=== PATIENT | female | born 1995 | race Caucasian/White ===

== ENCOUNTER → 2017-05-27 | Outpatient (CLI) | payer MEDICAID, OTHER | LOC: LABNPT 17:47 | PROVIDERS: ATTEND Nurse Practitioner Family | DX: N30.00 Acute cystitis without hematuria (principal); Z20.2 Contact with and (suspected) exposure to infections with a predominantly sexual mode of transmission; R30.0 Dysuria | CPT/HCPCS: 87088; 87186 ==

== ENCOUNTER 2017-07-31 20:32 | Emergency (ER) | payer MEDICAID ==
[~2017-07-31] VITALS: Ht 160 cm; Wt 65.8 kg
--- NOTE | 2017-07-31 21:55 | ED Abdominal Pain ---
General Chief Complaint: Abdominal/GI Problems Stated Complaint: RIGHT SIDE ABDOMEN PAIN Nursing Triage Note: RIGHT SIDED ABDOMINAL PAIN, NAUSEA, HEADACHE Sepsis Screen: No Definite Risk History of Present Illness Date Seen by Provider: July 31, 2017 Time Seen by Provider: 21:45 Initial Comments 2-year-old female presents for right-sided abdominal pain. She reports her last menstrual cycle being June 27, 2017. She did have unprotected intercourse approximately 4 days before this, she denies any other sexual activity. She has a 2 and 4-year-old child at home. He reports intermittent nausea worse after eating. She denies any vomiting or diarrhea. Timing/Duration: Intermittent Severity/Quality: Mild Location: RLQ Radiation: No Radiation Associated Symptoms: No Back Pain, No Diaphoresis, No Fever/Chills; Fatigue, Nausea/Vomiting; No Weakness Allergies and Home Medications Patient Home Medication List Home Medication List Reviewed: Yes Review of Systems Constitutional: no symptoms reported, see HPI Gastrointestinal: See HPI, Abdominal Pain, Nausea, Poor Appetite All Other Systems Reviewed Negative Unless Noted: Yes Past Zqgfpux-Kzdqgl-Ymuejr Hx Past Med/Social Hx: Reviewed Nursing Past Med/Soc Hx Patient Social History Alcohol Use: Denies Use Recreational Drug Use: No Smoking Status: Never a Smoker 2nd Hand Smoke Exposure: No Recent Foreign Travel: No Contact w/Someone Who Travel: No Recent Infectious Disease Expo: No Recent Hopitalizations: No Immunizations Up To Date Tetanus Booster (TDap): Unknown PED Vaccines UTD: No Seasonal Allergies Seasonal Allergies: No Past Medical History Surgeries: No Respiratory: No Cardiac: No Neurological: No : Yes Last Menstrual Period: Jun 27, 2017 Hx : 2 Hx Para: 2 Hx Total # of Abortions (Sp): 0 Reproductive Disorders: No Genitourinary: No Gastrointestinal: No Musculoskeletal: No Endocrine: No HEENT: No Cancer: No Psychosocial: No Integumentary: No Blood Disorders: No Family Medical History Reviewed Nursing Family Hx Physical Exam Vital Signs Vital Signs - First Documented 07/31/17 21:15 Temp 97.8 Pulse 73 Resp 18 B/P (MAP) 139/77 (97) Pulse Ox 97 O2 Delivery Room Air Capillary Refill : Less Than 3 Seconds General Appearance: WD/WN, no apparent distress HEENT: PERRL/EOMI, normal ENT inspection, TMs normal, pharynx normal Neck: non-tender, full range of motion, supple Respiratory: chest non-tender, lungs clear, normal breath sounds Cardiovascular: normal peripheral pulses, regular rate, rhythm Gastrointestinal: normal bowel sounds, soft; No distended, No guarding, No rebound; tenderness (right lower quadrant) Neurologic/Psychiatric: no motor/sensory deficits, alert, normal mood/affect, oriented x 3 Skin: normal color, warm/dry Progress/Results/Core Measures Results/Orders Lab Results Laboratory Tests Test 07/31/17 21:44 07/31/17 22:00 Range/Units Urine Color YELLOW Urine Clarity VERY CLOUDY H Urine pH 7 5-9 Urine Specific [place] 1.010 L 1.016-1.022 Urine Protein NEGATIVE NEGATIVE Urine Glucose (UA) NEGATIVE NEGATIVE Urine Ketones NEGATIVE NEGATIVE Urine Nitrite NEGATIVE NEGATIVE Urine Bilirubin NEGATIVE NEGATIVE Urine Urobilinogen 4 H NORMAL MG/DL Urine Leukocyte Esterase 1+ H NEGATIVE Urine RBC (Auto) NEGATIVE NEGATIVE Urine RBC NONE /HPF Urine WBC 2-5 /HPF Urine Squamous Epithelial Cells 10-25 H /HPF Urine Crystals PRESENT H /LPF Urine Amorphous Sediment LARGE MICHELLE PHOSPHATE H /LPF Urine Bacteria FEW H /HPF Urine Casts NONE /LPF Urine Mucus NEGATIVE /LPF Urine Culture Indicated NO White Blood Count 6.5 4.3-11.0 10^3/uL Red Blood Count 4.68 4.35-5.85 10^6/uL Hemoglobin 13.6 11.5-16.0 G/DL Hematocrit 40 35-52 % Mean Corpuscular Volume 85 80-99 FL Mean Corpuscular Hemoglobin 29 25-34 PG Mean Corpuscular Hemoglobin Concent 34 32-36 G/DL Red Cell Distribution Width 13.4 10.0-14.5 % Platelet Count 193 130-400 10^3/uL Mean Platelet Volume 11.0 H 7.4-10.4 FL Neutrophils (%) (Auto) 53 42-75 % Lymphocytes (%) (Auto) 35 12-44 % Monocytes (%) (Auto) 8 0-12 % Eosinophils (%) (Auto) 3 0-10 % Basophils (%) (Auto) 0 0-10 % Neutrophils # (Auto) 3.4 1.8-7.8 X 10^3 Lymphocytes # (Auto) 2.3 1.0-4.0 X 10^3 Monocytes # (Auto) 0.6 0.0-1.0 X 10^3 Eosinophils # (Auto) 0.2 0.0-0.3 10^3/uL Basophils # (Auto) 0.0 0.0-0.1 10^3/uL Sodium Level 140 135-145 MMOL/L Potassium Level 3.7 3.6-5.0 MMOL/L Chloride Level 111 H 98-107 MMOL/L Carbon Dioxide Level 21 21-32 MMOL/L Anion Gap 8 5-14 MMOL/L Blood Urea Nitrogen 8 7-18 MG/DL Creatinine 0.73 0.60-1.30 MG/DL Estimat Glomerular Filtration Rate > 60 BUN/Creatinine Ratio 11 Glucose Level 100 70-105 MG/DL Calcium Level 9.6 8.5-10.1 MG/DL Total Bilirubin 0.8 0.1-1.0 MG/DL Aspartate Amino Transf (AST/SGOT) 20 5-34 U/L Alanine Aminotransferase (ALT/SGPT) 19 0-55 U/L Alkaline Phosphatase 68 40-136 U/L Total Protein 7.3 6.4-8.2 GM/DL Albumin 4.6 H 3.2-4.5 GM/DL Human Chorionic Gonadotropin, Quant 972 H <5 MIU/ML My Orders Orders - MICHELLEANA Cbc With Automated Diff (07/31/17 21:51) Comprehensive Metabolic Panel (07/31/17 21:51) Hcg,Quantitative (07/31/17 21:51) Us Ob Transvaginal [id number] (07/31/17 21:52) Urine Bedside (07/31/17 21:56) Ua Culture If Indicated (07/31/17 21:56) Vital Signs/I&O 07/31/17 07/31/17 21:15 23:09 Temp 97.8 97.2 Pulse 73 70 Resp 18 18 B/P (MAP) 139/77 (97) 132/69 (97) Pulse Ox 97 98 O2 Delivery Room Air Room Air Blood Pressure Mean: 97 Urine -Bedside: Positive Progress Progress Note : Time: 21:45 Progress Note Initial evaluation completed, recommended urine hCG and UA. Urine HCG +, will obtain CBC, CMP, quantitative hCG and transvaginal ultrasound. Discussed results and plan with patient, she agreed with this treatment. 2300 results of ultrasound discussed with the patient. Recommended referral to LAMINATION INSPECTOR this week. And follow-up ultrasound. She will make an appointment. Discharge instructions and return precautions reviewed with her. All questions answered. Diagnostic Imaging Diagonstic Imaging: Ultrasound Plain Films/CT/US/NM/MRI: other (OB transvaginal) Comments Per [facility]: 3 mm anechoic collection within the endometrial canal, representing early gestational sac or pseudo-gestational sac. No identifiable pole or yolk sac at this time. No evidence of an adnexal mass time Reviewed: Reviewed by Me, Reviewed/Discussed (With ultrasound. ) Departure Impression Primary Impression: First trimester Additional Impression: Pain, abdominal, RLQ Disposition: HOME, SELF-CARE Condition: Stable Departure-Patient Inst. Decision time for Depature: 23:00 Referrals: NO,LOCAL PHYSICIAN (PCP) Primary Care Physician Patient Instructions: Acute Abdomen (Belly Pain), Adult (DC), Nausea and Vomiting of (DC), - The Second Month Add. Discharge Instructions: Begin taking a vitamin, one daily. Schedule follow-up with an LAMINATION INSPECTOR see medical listing. Clear liquid or bland diet, eat small, frequent amounts of food. Increase water intake. Return to emergency department for increased abdominal pain, vaginal bleeding or spotting, new problems or concerns. All discharge instructions reviewed with patient and/or family. Voiced understanding. 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
[2017-07-31 22:02] LABS: BILIRUBIN,URINE NEGATIVE (NEGATIVE); CLARITY,URINE VERY CLOUDY; COLOR,URINE YELLOW; GLUCOSE, URINE (UA) NEGATIVE (NEGATIVE); KETONES,URINE NEGATIVE (NEGATIVE); LEUKOCYTE ESTERASE ,URINE 1+ (NEGATIVE); NITRITE,URINE NEGATIVE (NEGATIVE); PH,URINE 7 (5-9); PROTEIN,URINE NEGATIVE (NEGATIVE); UROBILINOGEN,URINE 4 MG/DL (NORMAL)
[2017-07-31 22:07] LABS: BASOPHILS % (AUTO) 0 % (0-10); EOSINOPHILS # (AUTO) 0.2 10^3/uL (0.0-0.3); EOSINOPHILS % (AUTO) 3 % (0-10); HEMATOCRIT 40 % (35-52); HEMOGLOBIN 13.6 G/DL (11.5-16.0); LYMPHOCYTES # (AUTO) 2.3 X 10^3 (1.0-4.0); LYMPHOCYTES % (AUTO) 35 % (12-44); MEAN CORPUSCULAR HEMOGLOBIN 29 PG (25-34); MEAN CORPUSCULAR HGB CONC 34 G/DL (32-36); MEAN CORPUSCULAR VOLUME 85 FL (80-99); MONOCYTES # (AUTO) 0.6 X 10^3 (0.0-1.0); MONOCYTES % (AUTO) 8 % (0-12); NEUTROPHILS # (AUTO) 3.4 X 10^3 (1.8-7.8); NEUTROPHILS % (AUTO) 53 % (42-75); PLATELET COUNT 193 10^3/uL (130-400); RED BLOOD COUNT 4.68 10^6/uL (4.35-5.85); RED CELL DISTRIBUTION WIDTH 13.4 % (10.0-14.5); WHITE BLOOD COUNT 6.5 10^3/uL (4.3-11.0)
[2017-07-31 22:21] LABS: BACTERIA,URINE FEW /HPF
[2017-07-31 22:22] LABS: AMORPHOUS SEDIMENT,UR LARGE AMOR PHOSPHATE /LPF
[2017-07-31 22:38] LABS: ALANINE AMINOTRANSFERASE 19 U/L (0-55); ALBUMIN 4.6 GM/DL (3.2-4.5); ALKALINE PHOSPHATASE 68 U/L (40-136); BILIRUBIN,TOTAL 0.8 MG/DL (0.1-1.0); BUN/CREATININE RATIO 11; CALCIUM 9.6 MG/DL (8.5-10.1); CARBON DIOXIDE 21 MMOL/L (21-32); CHLORIDE 111 MMOL/L (98-107); CREATININE SERUM 0.73 MG/DL (0.60-1.30); GFR ESTIMATED > 60; GLUCOSE 100 MG/DL (70-105); POTASSIUM 3.7 MMOL/L (3.6-5.0); SODIUM 140 MMOL/L (135-145); TOTAL PROTEIN 7.3 GM/DL (6.4-8.2)
[2017-07-31 23:09] VITALS: BP 132/69
--- NOTE | 2017-08-01 08:59 | Diagnostic Imaging Report ---
EXAMINATION: OB ultrasound. INDICATION: Cramping There are no prior studies available for comparison. By history the patient has a positive test. There is a small hypoechoic area within the uterus. This would correspond to a 4 week 5 day if this is a gestational sac. The possibility that this is related to a blighted ovum or even an ectopic pseudo sac should also be considered. Correlation with the patient's beta hCG levels would be recommended. Both ovaries were identified. There is good blood flow to each ovary. There is a 1.4 x 1.9 x 1.7 CM cyst associated with the left ovary. There is no solid pelvic mass or free fluid collection noted. Impression: 1. There is a small saclike structure within the uterus. Whether this is secondary to an early live , a blighted ovum or least likely to a gestational pseudo sac is not certain. Correlation with the patient's beta hCG levels would be recommended. It may prove worthwhile to have a short-term (one week) followup ultrasound exam as well. 2. There is a small cyst associated with the left ovary. 3. There is no acute pelvic abnormality noted otherwise. Dictated by: Dictated on workstation # [id number]
== END 2017-07-31 23:08 | disposition home or self-care (01) ==
LOC: EDUNIT# 20:32 → ER 20:33
DX: O99.89 Other specified diseases and conditions complicating pregnancy, childbirth and the puerperium (principal); R10.31 Right lower quadrant pain; Z3A.00 Weeks of gestation of pregnancy not specified
CPT/HCPCS: 36415; 76817; 80053; 81000; 84702; 84703; 85025

== ENCOUNTER 2017-08-15 20:58 | Emergency (ER) | payer MEDICAID ==
[~2017-08-15] VITALS: Ht 160 cm; Wt 61.2 kg
--- NOTE | 2017-08-15 21:21 | ED GU-Female ---
General Chief Complaint: Abdominal/GI Problems Stated Complaint: ABD PAIN AFTER MISCARRIAGE Nursing Triage Note: c/o abdomen pain. patient reports was recently , went to have an ultrasound and was told the heart was not beating, was given 4 pills to take if the fetus didn't pass on it's own. patient reports taking the 4 pills on 08/12/17. patient reports abdomen cramping similar to labor starting today Nursing Sepsis Screen: No Definite Risk Source: patient Exam Limitations: no limitations History of Present Illness Date Seen by Provider: August 15, 2017 Time Seen by Provider: 21:21 Initial Comments 21-year-old female patient presents to the emergency department with complaints of lower abdominal pain, cramping, and vaginal bleeding. Patient was seen in the emergency department at [facility] on 07/31/17 and diagnosed with first trimester and right lower quadrant abdominal pain. Patient states soon after that she had gone to [place] to visit her father. Was seen at 2 different emergency departments. States she had an ultrasound at each facility measuring approximately 5 weeks. States she should have measured 6 weeks at the second facility. Was offered pills to complete the miscarriage if needed. Patient states "I decided just to get it over with and took the pills on Tuesday." Patient reports light vaginal bleeding and cramping on Tuesday. Symptoms are worse today. Severity/Quality: cramping Location: suprapubic Radiation: back Sexual [place] History: less than 2 months ago Allergies and Home Medications Allergies Coded Allergies: No Known Drug Allergies (Unverified , 08/15/17) Home Medications Cephalexin 500 Mg Capsule, 500 MG PO TID Prescribed by: DEVI PANG on 08/15/17 [id number] Patient Home Medication List Home Medication List Reviewed: Yes Review of Systems Constitutional: No chills, No fever, No malaise Respiratory: no symptoms reported Cardiovascular: no symptoms reported Gastrointestinal: see HPI, abdominal pain (suprapubic abdominal cramping); No constipation, No diarrhea, No nausea, No vomiting Genitourinary: see HPI; denies discharge, denies dysuria, denies frequency, denies flank pain; pain, other (vaginal bleeding) : Yes LMP: Jun 27, 2017 Musculoskeletal: see HPI, back pain Skin: no symptoms reported Psychiatric/Neurological: No Symptoms Reported All Other Systemes Reviewed Negative Unless Noted: Yes (Negative excepted noted.) Past Punszrt-Vryaeo-Ttsvpd Hx Patient Social History Alcohol Use: Denies Use Recreational Drug Use: No Smoking Status: Never a Smoker 2nd Hand Smoke Exposure: No Recent Foreign Travel: No Contact w/Someone Who Travel: No Recent Infectious Disease Expo: No Recent Hopitalizations: No Immunizations Up To Date Tetanus Booster (TDap): Unknown PED Vaccines UTD: No Seasonal Allergies Seasonal Allergies: No Past Medical History Surgeries: No Respiratory: No Cardiac: No Neurological: No : Yes Last Menstrual Period: Jun 27, 2017 Hx : 3 Hx Para: 2 Hx Total # of Abortions (Sp): 1 Reproductive Disorders: No Female Reproductive Disorders: Denies Genitourinary: No Gastrointestinal: No Musculoskeletal: No Endocrine: No HEENT: No Cancer: No Psychosocial: No Integumentary: No Blood Disorders: No Family Medical History Reviewed Nursing Family Hx No Pertinent Family Hx Physical Exam Vital Signs Vital Signs - First Documented 08/15/17 21:08 Temp 98.2 Pulse 77 Resp 18 B/P (MAP) 140/81 (100) Pulse Ox 100 Capillary Refill : Less Than 3 Seconds General Appearance: WD/WN, no apparent distress HEENT: PERRL/EOMI, pharynx normal Neck: supple, normal inspection Cardiovascular: normal peripheral pulses, regular rate, rhythm, no edema, no murmur Respiratory: lungs clear, normal breath sounds, no respiratory distress, no accessory muscle use Gastrointestinal: normal bowel sounds, soft, no organomegaly; No distended, No guarding, No rebound; tenderness (suprapubic abdominal tenderness); No mass Back: normal inspection, no CVA tenderness Extremities: no pedal edema, normal capillary refill Neurologic/Psychiatric: alert, normal mood/affect, oriented x 3 Skin: normal color, warm/dry Progress/Results/Core Measures Suspected Sepsis Recent Fever Within 48 Hours: No Infection Criteria Present: None New/Unexplained Altered Menta: No Sepsis Screen: No Definite Risk SIRS Temperature:98.2 Pulse: 77 Respiratory Rate: 18 Laboratory Tests 08/15/17 21:23: White Blood Count 6.2 Blood Pressure 140 /81 Mean: 100 Laboratory Tests 08/15/17 21:23: Creatinine 0.70, Platelet Count 172, Total Bilirubin 0.6 Results/Orders Lab Results Laboratory Tests Test 08/15/17 21:23 Range/Units White Blood Count 6.2 4.3-11.0 10^3/uL Red Blood Count 4.46 4.35-5.85 10^6/uL Hemoglobin 13.2 11.5-16.0 G/DL Hematocrit 39 35-52 % Mean Corpuscular Volume 87 80-99 FL Mean Corpuscular Hemoglobin 30 25-34 PG Mean Corpuscular Hemoglobin Concent 34 32-36 G/DL Red Cell Distribution Width 13.1 10.0-14.5 % Platelet Count 172 130-400 10^3/uL Mean Platelet Volume 11.5 H 7.4-10.4 FL Neutrophils (%) (Auto) 55 42-75 % Lymphocytes (%) (Auto) 34 12-44 % Monocytes (%) (Auto) 9 0-12 % Eosinophils (%) (Auto) 3 0-10 % Basophils (%) (Auto) 0 0-10 % Neutrophils # (Auto) 3.4 1.8-7.8 X 10^3 Lymphocytes # (Auto) 2.1 1.0-4.0 X 10^3 Monocytes # (Auto) 0.5 0.0-1.0 X 10^3 Eosinophils # (Auto) 0.2 0.0-0.3 10^3/uL Basophils # (Auto) 0.0 0.0-0.1 10^3/uL Urine Color RED H Urine Clarity SLIGHTLY CLOUDY Urine pH 6 5-9 Urine Specific [place] 1.025 H 1.016-1.022 Urine Protein 3+ H NEGATIVE Urine Glucose (UA) NEGATIVE NEGATIVE Urine Ketones 1+ H NEGATIVE Urine Nitrite NEGATIVE NEGATIVE Urine Bilirubin NEGATIVE NEGATIVE Urine Urobilinogen 1 NORMAL MG/DL Urine Leukocyte Esterase 2+ H NEGATIVE Urine RBC (Auto) 5+ H NEGATIVE Urine RBC TNTC H /HPF Urine WBC 5-10 H /HPF Urine Squamous Epithelial Cells 10-25 H /HPF Urine Crystals NONE /LPF Urine Bacteria FEW H /HPF Urine Casts NONE /LPF Urine Mucus NEGATIVE /LPF Urine Culture Indicated YES Sodium Level 141 135-145 MMOL/L Potassium Level 3.8 3.6-5.0 MMOL/L Chloride Level 110 H 98-107 MMOL/L Carbon Dioxide Level 21 21-32 MMOL/L Anion Gap 10 5-14 MMOL/L Blood Urea Nitrogen 6 L 7-18 MG/DL Creatinine 0.70 0.60-1.30 MG/DL Estimat Glomerular Filtration Rate > 60 BUN/Creatinine Ratio 9 Glucose Level 109 H 70-105 MG/DL Calcium Level 9.5 8.5-10.1 MG/DL Total Bilirubin 0.6 0.1-1.0 MG/DL Aspartate Amino Transf (AST/SGOT) 15 5-34 U/L Alanine Aminotransferase (ALT/SGPT) 11 0-55 U/L Alkaline Phosphatase 63 40-136 U/L Total Protein 6.8 6.4-8.2 GM/DL Albumin 4.4 3.2-4.5 GM/DL Human Chorionic Gonadotropin, Quant 1275 H <5 MIU/ML My Orders Orders - DEVI PANG Cbc With Automated Diff (08/15/17 21:14) Comprehensive Metabolic Panel (08/15/17 21:14) Hcg,Quantitative (08/15/17 21:14) Ua Culture If Indicated (08/15/17 21:14) Saline Lock/Iv-Start (08/15/17 21:14) Us Ob Transvaginal [id number] (08/15/17 21:14) Urine Culture (08/15/17 21:23) Rx-Cephalexin Capsule (Rx-Keflex Capsule (08/15/17 23:15) Vital Signs/I&O 08/15/17 08/15/17 21:08 23:28 Temp 98.2 98.2 Pulse 77 77 Resp 18 18 B/P (MAP) 140/81 (100) 140/81 (100) Pulse Ox 100 100 Capillary Refill : Less Than 3 Seconds Blood Pressure Mean: 100 Diagnostic Imaging Diagonstic Imaging: Ultrasound Plain Films/CT/US/NM/MRI: pelvis Comments No evidence at previously seen gestational sac. Findings per [facility] report. Reviewed: Reviewed Night [facility] Study Departure Impression Primary Impression: in first trimester Additional Impressions: Urinary tract infection Dehydration Disposition: 01 HOME, SELF-CARE Condition: Improved Departure-Patient Inst. Decision time for Depature: 23:08 Referrals: NO,LOCAL PHYSICIAN (PCP) Primary Care Physician NOEMI ONEIL DENNIS G MD QUICK, KAY W ARNP SHAW, ANGELA C DO Patient Instructions: Dealing With Miscarriage, Miscarriage (DC), Dehydration, Adult (DC), Urinary Tract Infection, Adult (DC) Add. Discharge Instructions: All discharge instructions reviewed with patient and/or family. Voiced understanding. Tylenol extra strength [id number] as directed for pain. Drink plenty of fluids. Follow-up with your test and turn up technician/coal passer of choice within the next 3-5 days for recheck and repeat labs as an outpatient. They will most likely schedule an outpatient ultrasound. Call tomorrow morning for appointment time. Return to the emergency department for worsened symptoms , vaginal bleeding with greater than 2 pads per hour for greater than 2 hours, vaginal discharge, fever, vomiting, abdominal swelling, or any other concerns. Scripts Cephalexin (Cephalexin) 500 Mg Capsule 500 MG PO TID, #21 CAP 0 Refills Prov: DEVI PANG 08/15/17 Work/School Note: Work Release Form Date Seen in the Emergency Department: August 15, 2017 Return to Work: August 17, 2017 DEVI PANG August 15, 2017 21:21
[2017-08-15 21:35] LABS: BASOPHILS % (AUTO) 0 % (0-10); BILIRUBIN,URINE NEGATIVE (NEGATIVE); CLARITY,URINE SLIGHTLY CLOUDY; COLOR,URINE RED; EOSINOPHILS # (AUTO) 0.2 10^3/uL (0.0-0.3); EOSINOPHILS % (AUTO) 3 % (0-10); GLUCOSE, URINE (UA) NEGATIVE (NEGATIVE); HEMATOCRIT 39 % (35-52); HEMOGLOBIN 13.2 G/DL (11.5-16.0); KETONES,URINE 1+ (NEGATIVE); LEUKOCYTE ESTERASE ,URINE 2+ (NEGATIVE); LYMPHOCYTES # (AUTO) 2.1 X 10^3 (1.0-4.0); LYMPHOCYTES % (AUTO) 34 % (12-44); MEAN CORPUSCULAR HEMOGLOBIN 30 PG (25-34); MEAN CORPUSCULAR HGB CONC 34 G/DL (32-36); MEAN CORPUSCULAR VOLUME 87 FL (80-99); MEAN PLATELET VOLUME 11.5 FL (7.4-10.4); MONOCYTES # (AUTO) 0.5 X 10^3 (0.0-1.0); MONOCYTES % (AUTO) 9 % (0-12); NEUTROPHILS # (AUTO) 3.4 X 10^3 (1.8-7.8); NEUTROPHILS % (AUTO) 55 % (42-75); NITRITE,URINE NEGATIVE (NEGATIVE); PH,URINE 6 (5-9); PLATELET COUNT 172 10^3/uL (130-400); PROTEIN,URINE 3+ (NEGATIVE); RED BLOOD COUNT 4.46 10^6/uL (4.35-5.85); RED CELL DISTRIBUTION WIDTH 13.1 % (10.0-14.5); UROBILINOGEN,URINE 1 MG/DL (NORMAL); WHITE BLOOD COUNT 6.2 10^3/uL (4.3-11.0)
[2017-08-15 21:46] LABS: BACTERIA,URINE FEW /HPF; RBC,URINE TNTC /HPF
[2017-08-15 21:54] LABS: ALANINE AMINOTRANSFERASE 11 U/L (0-55); ALBUMIN 4.4 GM/DL (3.2-4.5); ALKALINE PHOSPHATASE 63 U/L (40-136); BILIRUBIN,TOTAL 0.6 MG/DL (0.1-1.0); BUN/CREATININE RATIO 9; CALCIUM 9.5 MG/DL (8.5-10.1); CARBON DIOXIDE 21 MMOL/L (21-32); CHLORIDE 110 MMOL/L (98-107); GFR ESTIMATED > 60; GLUCOSE 109 MG/DL (70-105); POTASSIUM 3.8 MMOL/L (3.6-5.0); SODIUM 141 MMOL/L (135-145); TOTAL PROTEIN 6.8 GM/DL (6.4-8.2)
[2017-08-15] MEDS ORDERED: CEPH500C PO (23:11)
[2017-08-15] MEDS ORDERED: RX-CEPHALEXIN (KEFLEX) 250 MG CAP PPK#4 PO STA (23:15)
[2017-08-15 23:28] VITALS: BP 140/81
--- NOTE | 2017-08-16 08:15 | Diagnostic Imaging Report ---
Indication: Recent . Technique: Multiple realtime grayscale images were obtained over the pelvis both transvaginal and endovaginally in various projections. Findings: Comparison made with prior examination from 07/31/2017. Uterus measures 9.3 x 4.8 x 6.4 cm. Endometrial thickness is 6 mm. There is no evidence of a previously seen gestational sac. There are no myometrial or endometrial masses. The right ovary was not identified. Left ovary is normal in size, morphology and demonstrate normal blood flow. There is no free fluid. There are no adnexal masses. Impression: No evidence of the previously seen gestational sac. Recommend correlation with beta hCG and followup ultrasound as clinically warranted. Dictated by: Dictated on workstation # [id number]
== END 2017-08-15 23:28 | disposition home or self-care (01) ==
LOC: EDUNIT# 20:58 → ER 20:59
DX: O03.88 Urinary tract infection following complete or unspecified spontaneous abortion (principal); O99.281 Endocrine, nutritional and metabolic diseases complicating pregnancy, first trimester; E86.0 Dehydration
CPT/HCPCS: 36415; 76817; 80053; 81000; 84702; 85025; 87077; 87088

== ENCOUNTER 2017-11-24 14:26 | Emergency (ER) | payer MEDICAID ==
[~2017-11-24] VITALS: Ht 160 cm; Wt 63.5 kg
[~2017-11-24 14:26] MED LIST: CEPH500C PO
[2017-11-24 14:50] LABS: BILIRUBIN,URINE NEGATIVE (NEGATIVE); CLARITY,URINE CLEAR; COLOR,URINE YELLOW; GLUCOSE, URINE (UA) NEGATIVE (NEGATIVE); KETONES,URINE NEGATIVE (NEGATIVE); LEUKOCYTE ESTERASE ,URINE 1+ (NEGATIVE); NITRITE,URINE NEGATIVE (NEGATIVE); PH,URINE 5 (5-9); PROTEIN,URINE NEGATIVE (NEGATIVE); UROBILINOGEN,URINE NORMAL (NORMAL)
[2017-11-24 14:54] LABS: BASOPHILS % (AUTO) 0 % (0-10); EOSINOPHILS # (AUTO) 0.1 10^3/uL (0.0-0.3); EOSINOPHILS % (AUTO) 2 % (0-10); HEMATOCRIT 41 % (35-52); HEMOGLOBIN 14.2 G/DL (11.5-16.0); LYMPHOCYTES # (AUTO) 1.5 X 10^3 (1.0-4.0); LYMPHOCYTES % (AUTO) 29 % (12-44); MEAN CORPUSCULAR HEMOGLOBIN 30 PG (25-34); MEAN CORPUSCULAR HGB CONC 35 G/DL (32-36); MEAN CORPUSCULAR VOLUME 85 FL (80-99); MEAN PLATELET VOLUME 11.4 FL (7.4-10.4); MONOCYTES # (AUTO) 0.4 X 10^3 (0.0-1.0); MONOCYTES % (AUTO) 8 % (0-12); NEUTROPHILS # (AUTO) 3.1 X 10^3 (1.8-7.8); NEUTROPHILS % (AUTO) 60 % (42-75); PLATELET COUNT 154 10^3/uL (130-400); RED CELL DISTRIBUTION WIDTH 12.5 % (10.0-14.5); WHITE BLOOD COUNT 5.2 10^3/uL (4.3-11.0)
[2017-11-24 14:59] LABS: BACTERIA,URINE MODERATE /HPF
--- NOTE | 2017-11-24 15:09 | ED Abdominal Pain ---
General Chief Complaint: Abdominal/GI Problems Stated Complaint: ABD PAIN/MISCARRIED 3 WKS AGO Nursing Triage Note: AMBULATORY TO ER WITH C/O LOWER ABD PAIN AND LOWER BACK PAIN X1 WEEK. STATES MISCARRIAGE APPROX 3-4 WEEKS AGO, NO D&C. Sepsis Screen: No Definite Risk Source of Information: Patient Exam Limitations: No Limitations History of Present Illness Date Seen by Provider: Nov 24, 2017 Time Seen by Provider: 14:30 Initial Comments Patient is a 22-year-old female who presents to the emergency room with complaints of lower abdominal pain and lower back pain for one week. She reports that she had a miscarriage 3-4 weeks ago. She was approximately 6 weeks along. She reports that she did not have a D&C. She has not had a menstrual cycle since the miscarriage. Timing/Duration: 1 Week Severity/Quality: Mild, Aching, Dull Location: Suprapubic Radiation: Back Associated Symptoms: Back Pain; No Fever/Chills, No Fatigue, No Headache, No Nausea/Vomiting Allergies and Home Medications Allergies Coded Allergies: No Known Drug Allergies (Unverified , 08/15/17) Home Medications Cephalexin 500 Mg Capsule, 500 MG PO TID Prescribed by: DEVI PANG on 08/15/17 2311 Cephalexin 500 Mg Capsule, 500 MG PO BID Prescribed by: JAMMIE LOPEZ on 11/24/17 1550 Ondansetron 4 Mg Tab.rapdis, 4 MG SL Q4H PRN for NAUSEA/VOMITING-1ST LINE Prescribed by: JAMMIE LOPEZ on 11/24/17 1550 Patient Home Medication List Home Medication List Reviewed: Yes Review of Systems Review of Systems Constitutional: see HPI; No chills, No fever Gastrointestinal: See HPI, Abdominal Pain Musculoskeletal: see HPI, back pain All Other Systems Reviewed Negative Unless Noted: Yes Past Ahoxftg-Hwcbyh-Qtxtmo Hx Past Med/Social Hx: Reviewed Nursing Past Med/Soc Hx Patient Social History Alcohol Use: Denies Use Recreational Drug Use: No Smoking Status: Never a Smoker 2nd Hand Smoke Exposure: No Recent Foreign Travel: No Contact w/Someone Who Travel: No Recent Infectious Disease Expo: No Recent Hopitalizations: No Immunizations Up To Date Tetanus Booster (TDap): Unknown PED Vaccines UTD: No Seasonal Allergies Seasonal Allergies: No Past Medical History Surgeries: No Respiratory: No Cardiac: No Neurological: No Reproductive Disorders: No Female Reproductive Disorders: Denies Genitourinary: No Gastrointestinal: No Musculoskeletal: No Endocrine: No HEENT: No Cancer: No Psychosocial: No Integumentary: No Blood Disorders: No Family Medical History Reviewed Nursing Family Hx No Pertinent Family Hx Physical Exam Vital Signs Vital Signs - First Documented 11/24/17 14:37 Temp 98.6 Pulse 88 Resp 17 B/P (MAP) 131/76 (94) Pulse Ox 100 O2 Delivery Room Air Capillary Refill : Less Than 3 Seconds Height/Weight/BMI Height: 5'3.00" Weight: 140lbs. oz. 63.807334ab; BMI Method:Stated General Appearance: WD/WN, no apparent distress HEENT: PERRL/EOMI, normal ENT inspection, TMs normal, pharynx normal Respiratory: chest non-tender, lungs clear, normal breath sounds, no respiratory distress, no accessory muscle use Cardiovascular: normal peripheral pulses, regular rate, rhythm, no edema, no gallop, no JVD, no murmur Gastrointestinal: normal bowel sounds, non tender, soft, no organomegaly, no pulsatile mass Back: normal inspection, no CVA tenderness, no vertebral tenderness Neurologic/Psychiatric: alert, normal mood/affect, oriented x 3 Skin: normal color, warm/dry Progress/Results/Core Measures Results/Orders Lab Results Laboratory Tests Test 11/24/17 14:27 11/24/17 14:34 11/24/17 14:45 Range/Units Lab Scanned Report Referred Lab Report [id number] Urine Color YELLOW Urine Clarity CLEAR Urine pH 5 5-9 Urine Specific [place] 1.020 1.016-1.022 Urine Protein NEGATIVE NEGATIVE Urine Glucose (UA) NEGATIVE NEGATIVE Urine Ketones NEGATIVE NEGATIVE Urine Nitrite NEGATIVE NEGATIVE Urine Bilirubin NEGATIVE NEGATIVE Urine Urobilinogen NORMAL NORMAL MG/DL Urine Leukocyte Esterase 1+ H NEGATIVE Urine RBC (Auto) NEGATIVE NEGATIVE Urine RBC NONE /HPF Urine WBC 5-10 H /HPF Urine Squamous Epithelial Cells 10-25 H /HPF Urine Crystals NONE /LPF Urine Bacteria MODERATE H /HPF Urine Casts NONE /LPF Urine Mucus SMALL H /LPF Urine Culture Indicated YES White Blood Count 5.2 4.3-11.0 10^3/uL Red Blood Count 4.80 4.35-5.85 10^6/uL Hemoglobin 14.2 11.5-16.0 G/DL Hematocrit 41 35-52 % Mean Corpuscular Volume 85 80-99 FL Mean Corpuscular Hemoglobin 30 25-34 PG Mean Corpuscular Hemoglobin Concent 35 32-36 G/DL Red Cell Distribution Width 12.5 10.0-14.5 % Platelet Count 154 130-400 10^3/uL Mean Platelet Volume 11.4 H 7.4-10.4 FL Neutrophils (%) (Auto) 60 42-75 % Lymphocytes (%) (Auto) 29 12-44 % Monocytes (%) (Auto) 8 0-12 % Eosinophils (%) (Auto) 2 0-10 % Basophils (%) (Auto) 0 0-10 % Neutrophils # (Auto) 3.1 1.8-7.8 X 10^3 Lymphocytes # (Auto) 1.5 1.0-4.0 X 10^3 Monocytes # (Auto) 0.4 0.0-1.0 X 10^3 Eosinophils # (Auto) 0.1 0.0-0.3 10^3/uL Basophils # (Auto) 0.0 0.0-0.1 10^3/uL Sodium Level 139 135-145 MMOL/L Potassium Level 3.6 3.6-5.0 MMOL/L Chloride Level 106 98-107 MMOL/L Carbon Dioxide Level 22 21-32 MMOL/L Anion Gap 11 5-14 MMOL/L Blood Urea Nitrogen 8 7-18 MG/DL Creatinine 0.76 0.60-1.30 MG/DL Estimat Glomerular Filtration Rate > 60 BUN/Creatinine Ratio 11 Glucose Level 82 70-105 MG/DL Calcium Level 9.5 8.5-10.1 MG/DL Corrected Calcium 9.1 8.5-10.1 MG/DL Total Bilirubin 0.9 0.1-1.0 MG/DL Aspartate Amino Transf (AST/SGOT) 15 5-34 U/L Alanine Aminotransferase (ALT/SGPT) 9 0-55 U/L Alkaline Phosphatase 61 40-136 U/L Total Protein 7.0 6.4-8.2 GM/DL Albumin 4.5 3.2-4.5 GM/DL Amylase Level 45 25-125 U/L Lipase 36 8-78 U/L Human Chorionic Gonadotropin, Quant < 5 <5 MIU/ML Micro Results Microbiology 11/24/17 Urine Culture - Final, Complete Strep agalactiae Group B See Comments My Orders Orders - JAMMIE LOPEZ Comprehensive Metabolic Panel (11/24/17 14:42) Lipase (11/24/17 14:42) Amylase (11/24/17 14:42) Ua Culture If Indicated (11/24/17 14:42) Saline Lock/Iv-Start (11/24/17 14:42) Cbc With Automated Diff (11/24/17 14:42) Hcg,Quantitative (11/24/17 14:42) Urine Culture (11/24/17 14:34) Vital Signs/I&O 11/24/17 11/24/17 14:37 15:56 Temp 98.6 98.6 Pulse 88 88 Resp 17 17 B/P (MAP) 131/76 (94) 131/76 (94) Pulse Ox 100 100 O2 Delivery Room Air Room Air Blood Pressure Mean: 94 Urine -Bedside: Negative Progress Progress Note : Time: 15:20 Progress Note Seen and evaluated the patient. I informed her of her urinary tract infection. I will be prescribing her antibiotics. She agrees with plans of care, plans for discharge, return precautions were given. Departure Impression Primary Impression: Urinary tract infection Disposition: 01 HOME, SELF-CARE Condition: Stable/Unchanged Departure-Patient Inst. Decision time for Depature: 15:36 Referrals: NO,LOCAL PHYSICIAN (PCP/Family) Primary Care Physician Patient Instructions: Urinary Tract Infection, Adult (DC) Add. Discharge Instructions: Take medications as directed. Ensure that you are drinking plenty of clear liquids like water. Follow-up with your primary care provider within 1 week for recheck. Keep your appointment with Mya Anderson for your women's health visit on December 12 2017. Return back to the emergency room for any worsening symptoms or concerns as needed. All discharge instructions reviewed with patient and/or family. Voiced understanding. Scripts Ondansetron (Zofran Odt) 4 Mg Tab.rapdis 4 MG SL Q4H PRN for NAUSEA/VOMITING-1ST LINE, #14 TAB Prov: JAMMIE LOPEZ 11/24/17 Cephalexin (Keflex) 500 Mg Capsule 500 MG PO BID for 10 Days, #20 CAP Prov: JAMMIE LOPEZ 11/24/17 JAMMIE LOPEZ Nov 24, 2017 15:09
[2017-11-24 15:12] LABS: ALANINE AMINOTRANSFERASE 9 U/L (0-55); ALBUMIN 4.5 GM/DL (3.2-4.5); ALKALINE PHOSPHATASE 61 U/L (40-136); AMYLASE 45 U/L (25-125); BILIRUBIN,TOTAL 0.9 MG/DL (0.1-1.0); BUN/CREATININE RATIO 11; CALCIUM 9.5 MG/DL (8.5-10.1); CARBON DIOXIDE 22 MMOL/L (21-32); CHLORIDE 106 MMOL/L (98-107); CREATININE SERUM 0.76 MG/DL (0.60-1.30); GFR ESTIMATED > 60; GLUCOSE 82 MG/DL (70-105); LIPASE 36 U/L (8-78); POTASSIUM 3.6 MMOL/L (3.6-5.0); SODIUM 139 MMOL/L (135-145)
[2017-11-24] MEDS ORDERED: ONDA4TAB8 SL (15:50)
[2017-11-24] MEDS ORDERED: CEPH-507 PO (15:50)
[2017-11-24 15:56] VITALS: BP 131/76
--- OUTSIDE RECORDS SUMMARY | 2017-11-24 17:51 | XMS REPORT ---
Author Author GAMALIEL TINOCO Organization [facility] IN [facility] Address [address] [place] [address] Care Team Providers Care Urban Designer Name Role Phone GAMALIEL TINOCO Unavailable PROBLEMS Unknown Problems ALLERGIES No Known Allergies ENCOUNTERS Encounter Location Date Diagnosis [facility] [address] [facility] [id number], [place] [address] May, Visit for TB skin test Z11.1 [facility] [address] [facility] [id number] [address] Feb, Sore throat J02.9 IMMUNIZATIONS No Known Immunizations SOCIAL HISTORY Never Assessed REASON FOR VISIT Sore throat started last night JStrasserRN PLAN OF CARE Activity Details Follow Up prn Reason: VITAL SIGNS Weight 145 lbs 2017-03-22 Temperature 97.9 degrees Fahrenheit 2017-03-22 Heart Rate 74 bpm 2017-03-22 Respiratory Rate 22 2017-03-22 Blood pressure systolic 104 mmHg 2017-03-22 Blood pressure diastolic 70 mmHg 2017-03-22 MEDICATIONS Unknown Medications RESULTS Name Result Date Reference Range STREP A (IN HOUSE) 2017-03-22 STREP A negative Control + Lot # [id number] Exp date 02-24-18 PROCEDURES Procedure Date Ordered Result Body Site STREP A ASSAY W/OPTIC Mar 22, 2017 INSTRUCTIONS MEDICATIONS ADMINISTERED No Known Medications
--- OUTSIDE RECORDS SUMMARY | 2017-11-24 17:51 | XMS REPORT ---
Author Author SRIDHAR CHILDERS [facility] Address [address] [place] [address] Care Team Providers Care Supervisor Mail Carriers Name Role Phone SRIDHAR CHILDERS Unavailable PROBLEMS Unknown Problems ALLERGIES No Information ENCOUNTERS Encounter Location Date Diagnosis [facility] [id number] [address] Sep, [facility] [id number], [place] [address] Sep, [facility] [id number], [place] [address] May, Visit for TB skin test Z11.1 [facility] [id number], [place] [address] Feb, Sore throat J02.9 IMMUNIZATIONS No Known Immunizations SOCIAL HISTORY Never Assessed REASON FOR VISIT TB skin test PLAN OF CARE Activity Details Follow Up 48-72 hours Reason: VITAL SIGNS MEDICATIONS Unknown Medications RESULTS No Results PROCEDURES Procedure Date Ordered Result Body Site TB INTRADERMAL 2017-06-03 Negative TB INTRADERMAL TEST June 03, 2017 INSTRUCTIONS MEDICATIONS ADMINISTERED No Known Medications
== END 2017-11-24 15:57 | disposition home or self-care (01) ==
LOC: EDUNIT# 14:26 → ER 14:27
DX: N39.0 Urinary tract infection, site not specified (principal); R10.30 Lower abdominal pain, unspecified; Z87.59 Personal history of other complications of pregnancy, childbirth and the puerperium
CPT/HCPCS: 36415; 80053; 81000; 82150; 83690; 84702; 84703; 85025; 87077; 87088

== ENCOUNTER 2018-03-09 18:24 | Emergency (ER) | payer MEDICAID ==
[~2018-03-09] VITALS: Ht 160 cm; Wt 67.1 kg
[~2018-03-09 18:24] MED LIST changes: +CEPH-507 PO; +ONDA4TAB8 SL
--- OUTSIDE RECORDS SUMMARY | 2018-03-09 18:30 | XMS REPORT ---
Author Author STEVE POPE Organization [facility] Address [address] [place] [address] Care Team Providers Care Pocket Closer Name Role Phone STEVE POPE Unavailable PROBLEMS Type Condition ICD9-CM Code [id number] Code Onset Dates Condition Status SNOMED Code Problem Irregular menstrual bleeding N92.6 Active [id number] Problem Elevated serum creatinine R79.89 Active [id number] ALLERGIES No Known Allergies ENCOUNTERS Encounter Location Date Diagnosis [facility] [address] [address] Nov, Elevated serum creatinine R79.89 [facility] [id number] [place] [address] Nov, Irregular menstrual bleeding N92.6 [facility] IN [facility] [address] [address] Sep, [facility] [address] [address] May, Visit for TB skin test Z11.1 [facility] [address] [address] Feb, Sore throat J02.9 IMMUNIZATIONS No Known Immunizations SOCIAL HISTORY Never Assessed REASON FOR VISIT irregular menstrual bleeding- pt states that she had a miscarrage 7 weeks ago. She had a period 3 weeks ago that lasted a week but she said she just spotted the whole time. She said this week she has had brown discharge . KONSTANTIN Diamond PLAN OF CARE Activity Details Follow Up prn Reason: Pending Test PAP REFLEX TO HPV IF ASCUS VITAL SIGNS Height 63 in 2017-12-19 Weight 142.5 lbs 2017-12-19 Temperature 98.1 degrees Fahrenheit 2017-12-19 Heart Rate 84 bpm 2017-12-19 Respiratory Rate 18 2017-12-19 BMI 25.24 kg/m2 2017-12-19 Blood pressure systolic 96 mmHg 2017-12-19 Blood pressure diastolic 62 mmHg 2017-12-19 MEDICATIONS Unknown Medications RESULTS No Results PROCEDURES Procedure Date Ordered Result Body Site [facility] Dec 19, 2017 SPECIMEN HANDLING Dec 19, 2017 URINE TEST Dec 19, 2017 Bacterial Vaginosis In House Dec 19, 2017 INSTRUCTIONS MEDICATIONS ADMINISTERED No Known Medications MEDICAL (GENERAL) HISTORY Type Description Date Medical History Miscarriage Surgical History No Surgical history information
--- OUTSIDE RECORDS SUMMARY | 2018-03-09 18:30 | XMS REPORT ---
Author Author SRIDHAR CHILDERS Organization [facility] Address [address] [place] [address] Care Team Providers Care Manufacturing Electrician Name Role Phone SRIDHAR CHILDERS Unavailable PROBLEMS Unknown Problems ALLERGIES No Known Allergies ENCOUNTERS Encounter Location Date Diagnosis [facility] IN [facility] [id number] [place] [address] Sep, [facility] [id number] [place] [address] May, Visit for TB skin test Z11.1 [facility] [address] [place], [place] [id number] [place] [address] Feb, Sore throat J02.9 IMMUNIZATIONS No Known Immunizations SOCIAL HISTORY Never Assessed REASON FOR VISIT bilateral breast pain for 3 days. last menstural period 09/07/2017. reports breasts feel enlarged...however no change in size. when she touches them...they express a white discharge. pt is not , not , but did breast feed in the past...2 years ago. reports this is a similar feeling. jeffrey, G2,T2,P0,A0,L2, chetna Farris...came in et visited with pt per RNs request. appt made with chetna Piedra on 10/13/2017 for follow up on this complaint. PLAN OF CARE VITAL SIGNS Height 63 in 2017-10-06 Weight 145.0 lbs 2017-10-06 Temperature 98.1 degrees Fahrenheit 2017-10-06 Heart Rate 80 bpm 2017-10-06 Respiratory Rate 20 2017-10-06 BMI 25.68 kg/m2 2017-10-06 Blood pressure systolic 110 mmHg 2017-10-06 Blood pressure diastolic 74 mmHg 2017-10-06 MEDICATIONS No Known Medications RESULTS No Results PROCEDURES No Known procedures INSTRUCTIONS MEDICATIONS ADMINISTERED No Known Medications
[2018-03-09] MEDS ORDERED: PREN-51 PO (18:39)
[2018-03-09] MEDS ORDERED: ACETAMINOPHEN 500 MG TAB (TYLENOL) PO ONE (18:45)
--- NOTE | 2018-03-09 18:46 | ED Abdominal Pain ---
General Chief Complaint: Abdominal/GI Problems Stated Complaint: ABD PAIN, Nursing Triage Note: PT AMBULATES TO ROOM 5 PT CO OF ABD PAIN L UPPER ABD. PT HAS +PREG TEST LMP-02/03/18 Sepsis Screen: No Definite Risk Source of Information: Patient, Other Exam Limitations: No Limitations History of Present Illness Date Seen by Provider: Mar 09, 2018 Time Seen by Provider: 18:36 Initial Comments Patient presents the ER by private conveyance with chief complaint 3 or 4 days now of progressively worsening left upper quadrant pain radiating towards her back. No history of kidney stones. No dysuria, hematuria, discharge. She is with a last menstrual period of 02/03/18 which puts her at 4 weeks and 6 days. She plans to follow-up with Dr. Wheatley but does not have an appointment set up yet. She's not having any fevers chills nausea vomiting diarrhea. She had a bowel movement that was normal formed today. No history of surgeries on her abdomen, trauma or irritable bowel/inflammatory bowel disease. She had blood work drawn a week or 2 ago for baseline after finding that she is and it was normal. She had some more blood work drawn by Dr. Anderson's office 2 days ago but does not know the results yet. The pain fluctuates between 4 and 8 and is about a 6 right now. Not made worse with movement urinating or defecating. Allergies and Home Medications Allergies Coded Allergies: No Known Drug Allergies (Unverified , 08/15/17) Patient Home Medication List Home Medication List Reviewed: Yes Review of Systems Review of Systems Constitutional: No chills, No diaphoresis EENTM: No Blurred Vision, No Double Vision Respiratory: Denies Cough, Denies Orthopnea Cardiovascular: Denies Chest Pain, Denies Edema Gastrointestinal: See HPI; Denies Abdomen Distended; Abdominal Pain; Denies Diarrhea, Denies Nausea Genitourinary: Denies Burning, Denies Discharge, Denies Drainage Musculoskeletal: No back pain, No joint pain Past Prbkqoy-Sjvgrn-Hlkktc Hx Patient Social History Alcohol Use: Denies Use Recreational Drug Use: No 2nd Hand Smoke Exposure: No Recent Foreign Travel: No Contact w/Someone Who Travel: No Recent Infectious Disease Expo: No Recent Hopitalizations: No Physical Abuse: No Sexual Abuse: No Immunizations Up To Date Tetanus Booster (TDap): Unknown PED Vaccines UTD: No Seasonal Allergies Seasonal Allergies: No Past Medical History Surgeries: No Respiratory: No Cardiac: No Neurological: No : Yes Last Menstrual Period: Feb 03, 2018 Reproductive Disorders: No Female Reproductive Disorders: Denies Genitourinary: No Gastrointestinal: No Musculoskeletal: No Endocrine: No HEENT: No Cancer: No Psychosocial: No Integumentary: No Blood Disorders: No Family Medical History No Pertinent Family Hx Physical Exam Vital Signs Vital Signs - First Documented 03/09/18 18:29 Temp 97.8 Pulse 69 Resp 18 B/P (MAP) 127/68 (87) Pulse Ox 97 Capillary Refill : Less Than 3 Seconds Height/Weight/BMI Height: 5'3.00" Weight: 148lbs. oz. 67.136379wc; BMI Method:Stated General Appearance: WD/WN, no apparent distress HEENT: PERRL/EOMI, normal ENT inspection, TMs normal, pharynx normal Neck: non-tender, full range of motion, normal inspection Respiratory: lungs clear, normal breath sounds, no respiratory distress, no accessory muscle use Cardiovascular: normal peripheral pulses, regular rate, rhythm Peripheral Pulses: 2+ Radial Pulses (R), 2+ Radial Pulses (L) Gastrointestinal: normal bowel sounds (active), no organomegaly, no pulsatile mass; No rebound; tenderness (left upper and left lower quadrants mildly tender without any mesenteric signs) Extremities: non-tender, normal inspection, normal capillary refill Neurologic/Psychiatric: alert, oriented x 3 Skin: normal color, warm/dry Progress/Results/Core Measures Results/Orders Lab Results Laboratory Tests Test 03/09/18 18:34 03/09/18 18:45 Range/Units Urine Color YELLOW Urine Clarity CLEAR Urine pH 7 5-9 Urine Specific [place] 1.015 L 1.016-1.022 Urine Protein NEGATIVE NEGATIVE Urine Glucose (UA) NEGATIVE NEGATIVE Urine Ketones NEGATIVE NEGATIVE Urine Nitrite NEGATIVE NEGATIVE Urine Bilirubin NEGATIVE NEGATIVE Urine Urobilinogen 1 NORMAL MG/DL Urine Leukocyte Esterase 1+ H NEGATIVE Urine RBC (Auto) NEGATIVE NEGATIVE Urine RBC NONE /HPF Urine WBC 2-5 /HPF Urine Squamous Epithelial Cells 10-25 H /HPF Urine Crystals PRESENT H /LPF Urine Amorphous Sediment LARGE MICHELLE URATES H /LPF Urine Bacteria NONE /HPF Urine Casts NONE /LPF Urine Mucus NONE /LPF Urine Culture Indicated NO Urine Test POSITIVE NEGATIVE Urine Opiates Screen NEGATIVE NEGATIVE Urine Oxycodone Screen NEGATIVE NEGATIVE Urine Methadone Screen NEGATIVE NEGATIVE Urine Propoxyphene Screen NEGATIVE NEGATIVE Urine Barbiturates Screen NEGATIVE NEGATIVE Ur Tricyclic Antidepressants Screen NEGATIVE NEGATIVE Urine Phencyclidine Screen NEGATIVE NEGATIVE Urine Amphetamines Screen NEGATIVE NEGATIVE Urine Methamphetamines Screen NEGATIVE NEGATIVE Urine Benzodiazepines Screen NEGATIVE NEGATIVE Urine Cocaine Screen NEGATIVE NEGATIVE Urine Cannabinoids Screen NEGATIVE NEGATIVE White Blood Count 5.6 4.3-11.0 10^3/uL Red Blood Count 4.47 4.35-5.85 10^6/uL Hemoglobin 12.9 11.5-16.0 G/DL Hematocrit 39 35-52 % Mean Corpuscular Volume 86 80-99 FL Mean Corpuscular Hemoglobin 29 25-34 PG Mean Corpuscular Hemoglobin Concent 34 32-36 G/DL Red Cell Distribution Width 13.1 10.0-14.5 % Platelet Count 170 130-400 10^3/uL Mean Platelet Volume 11.5 H 7.4-10.4 FL Neutrophils (%) (Auto) 54 42-75 % Lymphocytes (%) (Auto) 33 12-44 % Monocytes (%) (Auto) 12 0-12 % Eosinophils (%) (Auto) 2 0-10 % Basophils (%) (Auto) 0 0-10 % Neutrophils # (Auto) 3.0 1.8-7.8 X 10^3 Lymphocytes # (Auto) 1.8 1.0-4.0 X 10^3 Monocytes # (Auto) 0.6 0.0-1.0 X 10^3 Eosinophils # (Auto) 0.1 0.0-0.3 10^3/uL Basophils # (Auto) 0.0 0.0-0.1 10^3/uL Sodium Level 139 135-145 MMOL/L Potassium Level 3.9 3.6-5.0 MMOL/L Chloride Level 110 H 98-107 MMOL/L Carbon Dioxide Level 20 L 21-32 MMOL/L Anion Gap 9 5-14 MMOL/L Blood Urea Nitrogen 15 7-18 MG/DL Creatinine 0.80 0.60-1.30 MG/DL Estimat Glomerular Filtration Rate > 60 BUN/Creatinine Ratio 19 Glucose Level 93 70-105 MG/DL Calcium Level 9.0 8.5-10.1 MG/DL Corrected Calcium 8.8 8.5-10.1 MG/DL Total Bilirubin 0.8 0.1-1.0 MG/DL Aspartate Amino Transf (AST/SGOT) 19 5-34 U/L Alanine Aminotransferase (ALT/SGPT) 14 0-55 U/L Alkaline Phosphatase 57 40-136 U/L Total Protein 6.7 6.4-8.2 GM/DL Albumin 4.3 3.2-4.5 GM/DL Lipase 27 8-78 U/L Monoscreen NEGATIVE NEGATIVE My Orders Orders - LEE BORDEN Acetaminophen Tablet (Tylenol Tablet) (03/09/18 18:45) Cbc With Automated Diff (03/09/18 18:41) Comprehensive Metabolic Panel (03/09/18 18:41) Drug Screen Stat (Urine) (03/09/18 18:41) Hcg,Qualitative Urine (03/09/18 18:41) Lipase (03/09/18 18:41) Monotest (03/09/18 18:41) Ua Culture If Indicated (03/09/18 18:41) Medications Given in ED Current Medications Medications Dose Ordered Sig/Jose Maria Route Start Time Stop Time Status Last Admin Dose Admin Acetaminophen 1,000 mg ONCE ONCE PO 03/09/18 18:45 03/09/18 18:46 DC 03/09/18 19:11 1,000 MG Vital Signs/I&O 03/09/18 18:29 Temp 97.8 Pulse 69 Resp 18 B/P (MAP) 127/68 (87) Pulse Ox 97 Blood Pressure Mean: 87 Progress Progress Note #1: Time: 18:53 Progress Note We'll start with urinalysis, urine hCG CBC CMP and lipase, Monospot as well as urine drug screen. Progress Note #2: Time: 19:26 Progress Note Blood work and vital signs are unrevealing of any acute pathology. Would offer her ultrasound of the pelvis since she's having some left lower quadrant abdominal pain as well as her left renal however we don't have ultrasound tonight available. We have offered her to follow up in the morning with Dr. Wheatley 's office to see if they can do some workup outpatient or we can send her to the ER that has ultrasound available he would prefer not to wait. She did receive her thousand milligrams of Tylenol and had only marginal relief of symptoms. At this time she wants to wait until tomorrow and see her doctor. We have discussed return precautions. Departure Impression Primary Impression: Abdominal pain complicating Disposition: 01 HOME, SELF-CARE Condition: Stable Departure-Patient Inst. Decision time for Depature: 19:28 Referrals: NO,LOCAL PHYSICIAN (PCP/Family) Primary Care Physician Patient Instructions: Acute Abdomen (Belly Pain), Adult (DC) Add. Discharge Instructions: supervisor furnace room a bottle of MiraLAX, polyethylene glycol and mix 1 capful in 6-8 ounces of water and take this once or twice a day over the next day or so to clean out her bowels. He can also try Tums. Use Tylenol 1000 g every 8 hours for pain relief as well as heat, distraction, massage, muscle rubs.0 Tomorrow morning call your primary care doctor or Dr. Wheatley's office and request an results from blood tests and see whether they would be willing to help you further workup your abdominal pain. Return to the ER if you begin to have severe intractable pain, nausea vomiting or fever especially above 102.5. All discharge instructions reviewed with patient and/or family. Voiced understanding. Copy Copies To 1: KOLTON WHEATLEY TITUS J Mar 09, 2018 18:45
[2018-03-09 18:51] LABS: BILIRUBIN,URINE NEGATIVE (NEGATIVE); CLARITY,URINE CLEAR; COLOR,URINE YELLOW; GLUCOSE, URINE (UA) NEGATIVE (NEGATIVE); KETONES,URINE NEGATIVE (NEGATIVE); LEUKOCYTE ESTERASE ,URINE 1+ (NEGATIVE); NITRITE,URINE NEGATIVE (NEGATIVE); PH,URINE 7 (5-9); PROTEIN,URINE NEGATIVE (NEGATIVE); UROBILINOGEN,URINE 1 MG/DL (NORMAL)
[2018-03-09 18:53] LABS: BASOPHILS % (AUTO) 0 % (0-10); EOSINOPHILS # (AUTO) 0.1 10^3/uL (0.0-0.3); EOSINOPHILS % (AUTO) 2 % (0-10); HEMATOCRIT 39 % (35-52); HEMOGLOBIN 12.9 G/DL (11.5-16.0); LYMPHOCYTES # (AUTO) 1.8 X 10^3 (1.0-4.0); LYMPHOCYTES % (AUTO) 33 % (12-44); MEAN CORPUSCULAR HEMOGLOBIN 29 PG (25-34); MEAN CORPUSCULAR HGB CONC 34 G/DL (32-36); MEAN CORPUSCULAR VOLUME 86 FL (80-99); MEAN PLATELET VOLUME 11.5 FL (7.4-10.4); MONOCYTES # (AUTO) 0.6 X 10^3 (0.0-1.0); MONOCYTES % (AUTO) 12 % (0-12); NEUTROPHILS % (AUTO) 54 % (42-75); PLATELET COUNT 170 10^3/uL (130-400); RED BLOOD COUNT 4.47 10^6/uL (4.35-5.85); RED CELL DISTRIBUTION WIDTH 13.1 % (10.0-14.5); WHITE BLOOD COUNT 5.6 10^3/uL (4.3-11.0)
[2018-03-09 19:05] LABS: HCG,QUALITATIVE URINE POSITIVE (NEGATIVE)
[2018-03-09 19:08] LABS: AMORPHOUS SEDIMENT,UR LARGE AMOR URATES /LPF
[2018-03-09 19:12] LABS: AMPHETAMINE SCREEN, URINE NEGATIVE (NEGATIVE); BARBITURATE SCREEN URINE NEGATIVE (NEGATIVE); BENZODIAZEPINES SCREEN URINE NEGATIVE (NEGATIVE); CANNABINOID SCREEN, URINE NEGATIVE (NEGATIVE); COCAINE SCREEN URINE NEGATIVE (NEGATIVE); METHADONE STAT NEGATIVE (NEGATIVE); METHAMPHETAMINE SCREEN URINE S NEGATIVE (NEGATIVE); OPIATE SCREEN URINE NEGATIVE (NEGATIVE); OXYCODONE STAT NEGATIVE (NEGATIVE); PROPOXYPHENE STAT NEGATIVE (NEGATIVE); TRICYCLIC ANTIDEPRESSANTS SCRE NEGATIVE (NEGATIVE)
[2018-03-09 19:13] LABS: ALANINE AMINOTRANSFERASE 14 U/L (0-55); ALBUMIN 4.3 GM/DL (3.2-4.5); ALKALINE PHOSPHATASE 57 U/L (40-136); BILIRUBIN,TOTAL 0.8 MG/DL (0.1-1.0); BUN/CREATININE RATIO 19; CARBON DIOXIDE 20 MMOL/L (21-32); CHLORIDE 110 MMOL/L (98-107); GFR ESTIMATED > 60; GLUCOSE 93 MG/DL (70-105); LIPASE 27 U/L (8-78); POTASSIUM 3.9 MMOL/L (3.6-5.0); SODIUM 139 MMOL/L (135-145); TOTAL PROTEIN 6.7 GM/DL (6.4-8.2)
[2018-03-09 19:38] VITALS: BP 127/68
== END 2018-03-09 19:38 | disposition home or self-care (01) ==
LOC: EDUNIT# 18:24 → ER 18:26
DX: O26.891 Other specified pregnancy related conditions, first trimester (principal); R10.12 Left upper quadrant pain; Z3A.01 Less than 8 weeks gestation of pregnancy
CPT/HCPCS: 36415; 80053; 80306; 81000; 83690; 84703; 85025; 86308

== ENCOUNTER 2018-03-21 19:41 | Emergency (ER) | payer MEDICAID ==
[~2018-03-21] VITALS: Ht 160 cm; Wt 65.8 kg
[~2018-03-21 19:41] MED LIST changes: +PREN-51 PO
--- NOTE | 2018-03-21 20:06 | ED Headache ---
General Stated Complaint: MIGRAINE,VOMITTING Source: patient Exam Limitations: no limitations History of Present Illness Date Seen by Provider: Mar 21, 2018 Time Seen by Provider: 20:04 Initial Comments To ER with a frontal headache since this morning at about 10. She has associated nausea and vomiting. She gets headaches pretty frequently about once per week and she typically takes Excedrin for these. However she is about 7 weeks' gestation so she was not able to take Excedrin tonight. She denies fevers or chills. She states that typically her headaches are not this intense. This began at about 10 AM this morning mildly and got progressively worse throughout the day associated with nausea and vomiting. Timing/Duration: 4-6 hours Severity/Quality: severe Location: frontal Prior Headaches/Recent Trauma: frequent headaches Associated Symptoms: No confusion, No fever/chills; nausea/vomiting Allergies and Home Medications Allergies Coded Allergies: No Known Drug Allergies (Unverified , 08/15/17) Patient Home Medication List Home Medication List Reviewed: Yes Review of Systems Review of Systems Constitutional: see HPI; No chills, No fever Eyes: No Symptoms Reported Ears, Nose, Mouth, Throat: no symptoms reported Respiratory: no symptoms reported Cardiovascular: no symptoms reported Genitourinary: no symptoms reported Musculoskeletal: no symptoms reported Skin: no symptoms reported Psychiatric/Neurological: See HPI, Headache Past Bwuahit-Miptwo-Elexdr Hx Patient Social History 2nd Hand Smoke Exposure: No Recent Foreign Travel: No Contact w/Someone Who Travel: No Recent Hopitalizations: No Immunizations Up To Date Tetanus Booster (TDap): Unknown PED Vaccines UTD: No Seasonal Allergies Seasonal Allergies: No Past Medical History Surgeries: No Respiratory: No Cardiac: No Neurological: No Reproductive Disorders: No Female Reproductive Disorders: Denies Genitourinary: No Gastrointestinal: No Musculoskeletal: No Endocrine: No HEENT: No Cancer: No Psychosocial: No Integumentary: No Blood Disorders: No Family Medical History No Pertinent Family Hx Physical Exam Vital Signs Vital Signs - First Documented 03/21/18 20:10 Temp 98.7 Pulse 78 Resp 20 B/P (MAP) 120/70 (87) Pulse Ox 98 O2 Delivery Room Air Capillary Refill : Height, Weight, BMI Height: 5'3.00" Weight: 148lbs. oz. 67.892380fb; BMI Method:Stated General Appearance: WD/WN, no apparent distress HEENT: PERRL/EOMI, normal ENT inspection, TMs normal Neck: non-tender, full range of motion Respiratory: no respiratory distress, no accessory muscle use Gastrointestinal: normal bowel sounds, non tender Extremities: normal range of motion, non-tender Psychiatric: alert Crainal Nerves: normal hearing, normal speech, PERRL Skin: normal color, warm/dry Progress/Results/Core Measures Results/Orders My Orders Orders - FRANCESCA CORONA APRN Iv Heplock-Insert (Order) (03/21/18 20:03) Ns Iv 1000 Ml (Sodium Chloride 0.9%) (03/21/18 20:15) Diphenhydramine Injection (Benadryl Inje (03/21/18 20:15) Prochlorperazine Injection (Compazine In (03/21/18 20:15) Medications Given in ED Current Medications Medications Dose Ordered Sig/Jose Maria Route Start Time Stop Time Status Last Admin Dose Admin Diphenhydramine HCl 25 mg ONCE ONCE IVP 03/21/18 20:15 03/21/18 20:16 DC 03/21/18 20:15 25 MG Prochlorperazine Edisylate 5 mg ONCE ONCE IV 03/21/18 20:15 03/21/18 20:16 DC 03/21/18 20:15 5 MG Vital Signs/I&O 03/21/18 20:10 Temp 98.7 Pulse 78 Resp 20 B/P (MAP) 120/70 (87) Pulse Ox 98 O2 Delivery Room Air Departure Communication (Admissions) 2052-patient rates her headache at a 1 out of 10 at this time. We will discharge to home. 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 Impression Primary Impression: Headache Qualified Codes: R51 - Headache Disposition: 01 HOME, SELF-CARE Condition: Improved Departure-Patient Inst. Decision time for Depature: 20:06 Referrals: NO,LOCAL PHYSICIAN (PCP/Family) Primary Care Physician Patient Instructions: HEADACHE FRANCESCA CORONA APRN Mar 21, 2018 20:06
[2018-03-21] MEDS ORDERED: NS IV 1000 ML 1,000 ML IV SCH (20:15)
[2018-03-21] MEDS ORDERED: PROCHLORPERAZINE 10 MG/2ML INJ (COMPAZINE) IV ONE (20:15)
[2018-03-21] MEDS ORDERED: diphenhydrAMINE 50 MG/ML INJ (BENADRYL) IVP ONE (20:15)
[2018-03-21 20:57] VITALS: BP 111/64
== END 2018-03-21 20:57 | disposition home or self-care (01) ==
LOC: EDUNIT# 19:41 → ER 19:43
DX: O26.891 Other specified pregnancy related conditions, first trimester (principal); R51 Headache; Z86.69 Personal history of other diseases of the nervous system and sense organs; Z3A.01 Less than 8 weeks gestation of pregnancy
CPT/HCPCS: 96374; 96375

== ENCOUNTER → 2018-04-30 | Emergency (ER) | payer MEDICAID ==
[~2018-04-30] VITALS: Ht 160 cm; Wt 68.0 kg
[2018-04-30 11:07] LABS: HEMOGLOBIN 13.4 G/DL (11.5-16.0); MEAN PLATELET VOLUME 11.2 FL (7.4-10.4); RED CELL DISTRIBUTION WIDTH 13.4 % (10.0-14.5); WHITE BLOOD COUNT 4.1 10^3/uL (4.3-11.0)
[2018-04-30 11:14] LABS: BILIRUBIN,URINE NEGATIVE (NEGATIVE); CLARITY,URINE SLIGHTLY CLOUDY; COLOR,URINE YELLOW; GLUCOSE, URINE (UA) NEGATIVE (NEGATIVE); KETONES,URINE NEGATIVE (NEGATIVE); LEUKOCYTE ESTERASE ,URINE 1+ (NEGATIVE); NITRITE,URINE NEGATIVE (NEGATIVE); PH,URINE 6.5 (5-9); PROTEIN,URINE NEGATIVE (NEGATIVE); UROBILINOGEN,URINE NORMAL (NORMAL)
--- NOTE | 2018-04-30 11:22 | ED GU-Female ---
General Chief Complaint: Abdominal/GI Problems Stated Complaint: 13 WKS PREG/CRAMPING/BLEEDING Nursing Triage Note: pt presents to ed with complaints of bleeding starting last night and abdominal cramping starting today. pt reports the bleeding did stop last night and she has not had any spotting this morning. Nursing Sepsis Screen: No Definite Risk Source: patient Exam Limitations: no limitations History of Present Illness Date Seen by Provider: Apr 30, 2018 Time Seen by Provider: 11:15 Initial Comments 22-year-old female who presents to the emergency room with complaints of vaginal bleeding that started last night and suprapubic abdominal cramping that started today. She reports that the bleeding started while she was in the bathtub stopped shortly after and she has not had any bleeding since. She is just having the suprapubic abdominal cramping today. Timing/Duration: yesterday Severity/Quality: cramping Location: suprapubic Radiation: none Associated Symptoms: denies symptoms Allergies and Home Medications Allergies Coded Allergies: No Known Drug Allergies (Unverified , 08/15/17) Patient Home Medication List Home Medication List Reviewed: Yes Review of Systems Review of Systems Constitutional: no symptoms reported, see HPI Genitourinary: see HPI, other (vaginal bleeding last night) : Yes Expected Date of Delivery: Nov 10, 2018 All Other Systemes Reviewed Negative Unless Noted: Yes Past Fnbkhet-Jmeovj-Eqasxg Hx Past Med/Social Hx: Reviewed Nursing Past Med/Soc Hx Patient Social History Alcohol Use: Denies Use Recreational Drug Use: No Smoking Status: Never a Smoker 2nd Hand Smoke Exposure: No Recent Foreign Travel: No Contact w/Someone Who Travel: No Recent Infectious Disease Expo: No Recent Hopitalizations: No Physical Abuse: No Sexual Abuse: No Mistreated: No Fear: No Immunizations Up To Date Tetanus Booster (TDap): Unknown PED Vaccines UTD: No Seasonal Allergies Seasonal Allergies: No Past Medical History Surgeries: Yes (ear) Respiratory: No Cardiac: No Neurological: Yes Headaches /Migraines : Yes Expected Date of Delivery: Nov 10, 2018 Last Menstrual Period: Feb 03, 2019 Hx : 3 Hx Para: 2 Reproductive Disorders: No Female Reproductive Disorders: Denies Genitourinary: No Gastrointestinal: No Musculoskeletal: No Endocrine: No HEENT: No Cancer: No Psychosocial: No Integumentary: No Blood Disorders: No Family Medical History Reviewed Nursing Family Hx No Pertinent Family Hx Physical Exam Vital Signs Vital Signs - First Documented 04/30/18 10:43 Temp 97.2 Pulse 78 Resp 16 B/P (MAP) 103/85 (91) Pulse Ox 100 Capillary Refill : Less Than 3 Seconds Height, Weight, BMI Height: 5'3.00" Weight: 150lbs. oz. 68.827373si; BMI Method:Stated General Appearance: WD/WN, no apparent distress HEENT: PERRL/EOMI, normal ENT inspection, TMs normal, pharynx normal Cardiovascular: normal peripheral pulses, regular rate, rhythm, no edema, no gallop, no JVD, no murmur Respiratory: chest non-tender, lungs clear, normal breath sounds, no respiratory distress, no accessory muscle use, respiratory distress Gastrointestinal: normal bowel sounds, soft, no organomegaly, no pulsatile mass , tenderness (left-sided suprapubic tenderness.) Extremities: normal capillary refill Neurologic/Psychiatric: alert, normal mood/affect, oriented x 3 Skin: normal color, warm/dry Progress/Results/Core Measures Suspected Sepsis Recent Fever Within 48 Hours: No Infection Criteria Present: None New/Unexplained Altered Menta: No Sepsis Screen: No Definite Risk SIRS Temperature:97.2 Pulse: 78 Respiratory Rate: 16 Laboratory Tests 04/30/18 10:56: White Blood Count 4.1L Blood Pressure 103 /85 Mean: 91 Laboratory Tests 04/30/18 10:56: Creatinine 0.68, Platelet Count 165, Total Bilirubin 0.6 Results/Orders Lab Results Vital Signs/I&O Capillary Refill : Less Than 3 Seconds Blood Pressure Mean: 91 Progress Note : Time: 12:29 Progress Note I have seen and evaluated the patient. Bedside ultrasound was performed by Dr. Burgos and it was found that the heart rate was 1 6165. There was positive movement. Approximately 12 weeks 6 days by femur length. The patient agrees with plan of care, plans for close follow-up with manager power, return precautions were given. Departure Impression Primary Impression: Threatened miscarriage Additional Impression: Vaginal bleeding before 22 weeks gestation Disposition: 01 HOME, SELF-CARE Condition: Stable/Unchanged Departure-Patient Inst. Decision time for Depature: 12:29 Referrals: KOLTON WHEATLEY DO (PCP/Family) Primary Care Physician Patient Instructions: Threatened Miscarriage (DC) Add. Discharge Instructions: Follow-up with Dr. Wheatley within 1 week for recheck. Return back to the emergency room for worsening vaginal bleeding, pain, or symptoms or concerns as needed. All discharge instructions reviewed with patient and/or family. Voiced understanding. JAMMIE LOPEZ Apr 30, 2018 11:22
[2018-04-30 11:26] LABS: ALANINE AMINOTRANSFERASE 14 U/L (0-55); ALBUMIN 4.2 GM/DL (3.2-4.5); ALKALINE PHOSPHATASE 54 U/L (40-136); BILIRUBIN,TOTAL 0.6 MG/DL (0.1-1.0); BUN/CREATININE RATIO 7; CALCIUM 9.2 MG/DL (8.5-10.1); CARBON DIOXIDE 18 MMOL/L (21-32); CHLORIDE 109 MMOL/L (98-107); CREATININE SERUM 0.68 MG/DL (0.60-1.30); GFR ESTIMATED > 60; GLUCOSE 86 MG/DL (70-105); POTASSIUM 3.8 MMOL/L (3.6-5.0); SODIUM 138 MMOL/L (135-145); TOTAL PROTEIN 6.9 GM/DL (6.4-8.2)
[2018-04-30 11:47] LABS: BACTERIA,URINE FEW /HPF
[2018-04-30 12:37] VITALS: BP 107/72
== END | disposition home or self-care (01) ==
LOC: EDUNIT# 10:02 → ER 10:03
DX: O20.0 Threatened abortion (principal); O99.351 Diseases of the nervous system complicating pregnancy, first trimester; G43.909 Migraine, unspecified, not intractable, without status migrainosus; Z3A.13 13 weeks gestation of pregnancy
CPT/HCPCS: 36415; 80053; 81000; 85027; 86900; 86901; 87077; 87088

== ENCOUNTER 2018-06-06 20:15 | Emergency (ER) | payer MEDICAID ==
[~2018-06-06] VITALS: Ht 160 cm; Wt 68.0 kg
--- NOTE | 2018-06-06 20:55 | ED General ---
General Chief Complaint: -Female Stated Complaint: CRAMPING/BLEEDING,ANXIETY ATTACK,18 WEEKS Nursing Triage Note: pt states she had an axiety attack earlier due to stress and after she went to the bathroom and noticed bleeding. Pt is 18 weeks and experiencing moderate cramps 7/10 Nursing Sepsis Screen: No Definite Risk Source of Information: Patient History of Present Illness Date Seen by Provider: Jun 06, 2018 Time Seen by Provider: 20:40 Initial Comments PT ARRIVES VIA POV FROM HOME PT STATES EARLIER SHE HAD A PANIC ATTACK, DUE TO "ALOT OF STRESS" AFTER THAT, SHE STARTED HAVING LOWER ABDOMINAL CRAMPING AND VAGINAL BLEEDING-- OCCURRED AROUND 1800 STATES SHE HAD BLOOD ON TISSUE WHEN SHE WIPED ONLY, AND IS NOT HAVING ANY BLEEDING NOW. PT HAS PHOTO OF TISSUE, WITH A FEW TINY SPECKS OF BLOOD ON TISSUE. STATES SHE IS STILL HAVING SOME LOWER ABDOMINAL CRAMPING PT IS 18 WEEKS WITH LMP 02/03/19--NEXT APPOINTMENT WITH DR. WHEATLEY IS THIS Tuesday06/08/18 PT HAS ONGOING PAIN AND BURNING WITH URINATION, URGENCY AND FREQUENCY--STATES SHE ALWAYS FEELS LIKE SHE HAS A UTI PT HAS ONGOING NAUSEA AND VOMITING WITH BUT NONE TODAY HAS BEEN EATING AND DRINKING USUAL TODAY PT HAS TEMP OF 100.1 ON ARRIVAL--PT WAS UNAWARE THAT SHE HAD FEVER. NO SICK CONTACTS. 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 WHEATLEY Allergies and Home Medications Allergies Coded Allergies: No Known Drug Allergies (Unverified , 08/15/17) Patient Home Medication List Home Medication List Reviewed: Yes Review of Systems Review of Systems Constitutional: see HPI, fever EENTM: no symptoms reported Respiratory: no symptoms reported; No cough Cardiovascular: no symptoms reported; No chest pain Gastrointestinal: see HPI, abdominal pain Genitourinary: see HPI : Yes Expected Date of Delivery: Nov 10, 2018 LMP: Feb 03, 2018 Musculoskeletal: no symptoms reported Skin: no symptoms reported Psychiatric/Neurological: See HPI, Anxiety Hematologic/Lymphatic: No Symptoms Reported Immunological/Allergic: no symptoms reported Past Qaofxug-Vojeyf-Lzcjqy Hx Patient Social History 2nd Hand Smoke Exposure: No Recent Foreign Travel: No Contact w/Someone Who Travel: No Recent Infectious Disease Expo: No Recent Hopitalizations: No Immunizations Up To Date Tetanus Booster (TDap): Unknown PED Vaccines UTD: No Seasonal Allergies Seasonal Allergies: No Past Medical History Surgeries: Yes (COSMETIC SURGERY ON EARS) Respiratory: No Cardiac: No Neurological: Yes Headaches /Migraines : Yes Expected Date of Delivery: Nov 10, 2018 Last Menstrual Period: Feb 03, 2018 Hx : 3 Hx Para: 2 Reproductive Disorders: No Female Reproductive Disorders: Denies Genitourinary: No Gastrointestinal: No Musculoskeletal: No Endocrine: No HEENT: No Cancer: No Psychosocial: Yes Anxiety Integumentary: No Blood Disorders: No Family Medical History No Pertinent Family Hx Physical Exam Vital Signs Vital Signs - First Documented 06/06/18 20:21 Temp 100.1 Pulse 78 Resp 20 B/P (MAP) 127/65 (85) O2 Delivery Room Air Capillary Refill : Less Than 3 Seconds Height, Weight, BMI Height: 5'3.00" Weight: 150lbs. oz. 68.786967sl; BMI Method:Stated General Appearance: No Apparent Distress, WD/WN HEENT: PERRL/EOMI, TMs Normal, Normal ENT Inspection, Pharynx Normal Neck: Full Range of Motion, Normal Inspection, Non Tender, Supple Respiratory: Normal Breath Sounds, No Accessory Muscle Use, No Respiratory Distress Cardiovascular: Regular Rate, Rhythm, No Edema, No JVD, No Murmur, Normal Peripheral Pulses Gastrointestinal: Normal Bowel Sounds, No Pulsatile Mass, Soft, Other (GRAVID UTERUS WITH FUNDUS 2 FB'S BELOW UMBILICUS. FUNDAL TENDERNESS) Extremity: Normal Capillary Refill, Normal Inspection, Normal Range of Motion, Non Tender, No Calf Tenderness Neurologic/Psychiatric: Alert, Oriented x3, No Motor/Sensory Deficits, Normal Mood/Affect Skin: Normal Color, Warm/Dry; No Rash Progress/Results/Core Measures Suspected Sepsis Recent Fever Within 48 Hours: No Infection Criteria Present: None New/Unexplained Altered Menta: No Sepsis Screen: No Definite Risk SIRS Temperature:100.1 Pulse: 78 Respiratory Rate: 20 Laboratory Tests 06/06/18 20:39: White Blood Count 7.6 Blood Pressure 127 /65 Mean: 85 Laboratory Tests 06/06/18 20:39: Creatinine 0.64, Platelet Count 143, Total Bilirubin 0.3 Results/Orders Lab Results Laboratory Tests Test 06/06/18 20:33 06/06/18 20:39 Range/Units Urine Color YELLOW Urine Clarity SLIGHTLY CLOUDY Urine pH 6 5-9 Urine Specific [place] 1.025 H 1.016-1.022 Urine Protein NEGATIVE NEGATIVE Urine Glucose (UA) NEGATIVE NEGATIVE Urine Ketones NEGATIVE NEGATIVE Urine Nitrite NEGATIVE NEGATIVE Urine Bilirubin NEGATIVE NEGATIVE Urine Urobilinogen NORMAL NORMAL MG/DL Urine Leukocyte Esterase 1+ H NEGATIVE Urine RBC (Auto) NEGATIVE NEGATIVE Urine RBC NONE /HPF Urine WBC 2-5 /HPF Urine Squamous Epithelial Cells 10-25 H /HPF Urine Crystals PRESENT H /LPF Urine Calcium Oxalate Crystals MODERATE H /LPF Urine Bacteria FEW H /HPF Urine Casts NONE /LPF Urine Mucus MODERATE H /LPF Urine Culture Indicated NO White Blood Count 7.6 4.3-11.0 10^3/uL Red Blood Count 4.29 L 4.35-5.85 10^6/uL Hemoglobin 12.6 11.5-16.0 G/DL Hematocrit 36 35-52 % Mean Corpuscular Volume 84 80-99 FL Mean Corpuscular Hemoglobin 29 25-34 PG Mean Corpuscular Hemoglobin Concent 35 32-36 G/DL Red Cell Distribution Width 13.7 10.0-14.5 % Platelet Count 143 130-400 10^3/uL Mean Platelet Volume 11.5 H 7.4-10.4 FL Neutrophils (%) (Auto) 64 42-75 % Lymphocytes (%) (Auto) 26 12-44 % Monocytes (%) (Auto) 9 0-12 % Eosinophils (%) (Auto) 1 0-10 % Basophils (%) (Auto) 0 0-10 % Neutrophils # (Auto) 4.9 1.8-7.8 X 10^3 Lymphocytes # (Auto) 2.0 1.0-4.0 X 10^3 Monocytes # (Auto) 0.7 0.0-1.0 X 10^3 Eosinophils # (Auto) 0.1 0.0-0.3 10^3/uL Basophils # (Auto) 0.0 0.0-0.1 10^3/uL Sodium Level 140 135-145 MMOL/L Potassium Level 3.3 L 3.6-5.0 MMOL/L Chloride Level 108 H 98-107 MMOL/L Carbon Dioxide Level 23 21-32 MMOL/L Anion Gap 9 5-14 MMOL/L Blood Urea Nitrogen 7 7-18 MG/DL Creatinine 0.64 0.60-1.30 MG/DL Estimat Glomerular Filtration Rate > 60 BUN/Creatinine Ratio 11 Glucose Level 83 70-105 MG/DL Calcium Level 9.2 8.5-10.1 MG/DL Corrected Calcium 9.4 8.5-10.1 MG/DL Total Bilirubin 0.3 0.1-1.0 MG/DL Aspartate Amino Transf (AST/SGOT) 18 5-34 U/L Alanine Aminotransferase (ALT/SGPT) 8 0-55 U/L Alkaline Phosphatase 50 40-136 U/L Total Protein 6.3 L 6.4-8.2 GM/DL Albumin 3.8 3.2-4.5 GM/DL Human Chorionic Gonadotropin, Quant [id number] H <5 MIU/ML Micro Results Microbiology 06/06/18 Influenza Types A,B Antigen (GIAN) - Final, Complete My Orders Orders - ALISSA HURTADO DO Basic Metabolic Panel (06/06/18 20:49) Cbc With Automated Diff (06/06/18 20:49) Hcg,Quantitative (06/06/18 20:49) Comprehensive Metabolic Panel (06/06/18 20:49) Ua Culture If Indicated (06/06/18 20:49) Influenza A And B Antigens (06/06/18 20:49) Urine Culture (06/06/18 21:25) Vital Signs/I&O 06/06/18 20:21 Temp 100.1 Pulse 78 Resp 20 B/P (MAP) 127/65 (85) O2 Delivery Room Air Capillary Refill : Less Than 3 Seconds Blood Pressure Mean: 85 Progress Note : Progress Note NO VAGINAL BLEEDING DURING ER STAY CRAMPING IS EASING AT DISMISSAL NO ULTRASOUND AVAILABLE HERE AT THIS TIME. PT HAS ROUTINE OB APPOINTMENT ON TUESDAY Departure Impression Primary Impression: Urinary tract infection Additional Impressions: 18 weeks gestation of UTI (urinary tract infection) in in second trimester Anxiety Disposition: HOME, SELF-CARE Condition: Improved Departure-Patient Inst. Referrals: KOLTON WHEATLEY DO (PCP/Family) Primary Care Physician Patient Instructions: Anxiety, Adult (DC), Avoiding Infections in , Urinary Tract Infection, Adult (DC) Add. Discharge Instructions: HOME, REST INCREASE YOUR FLUID INTAKE--NO COFFEE, POP OR TEA TYLENOL NEEDED FOR PAIN KEEP YOUR APPOINTMENT WITH DR. WHEATLEY THIS WEEK RETURN TO ER IF SYMPTOMS WORSEN All discharge instructions reviewed with patient and/or family. Voiced understanding. Scripts Cefdinir (Cefdinir) 300 Mg Capsule 300 MG PO BID for FOR INFECTION, #20 CAP Prov: ALISSA HURTADO DO 06/06/18 ALISSA HURTADO DO Jun 06, 2018 20:55
[2018-06-06 20:57] LABS: BASOPHILS % (AUTO) 0 % (0-10); EOSINOPHILS # (AUTO) 0.1 10^3/uL (0.0-0.3); EOSINOPHILS % (AUTO) 1 % (0-10); HEMATOCRIT 36 % (35-52); HEMOGLOBIN 12.6 G/DL (11.5-16.0); LYMPHOCYTES % (AUTO) 26 % (12-44); MEAN CORPUSCULAR HEMOGLOBIN 29 PG (25-34); MEAN CORPUSCULAR HGB CONC 35 G/DL (32-36); MEAN CORPUSCULAR VOLUME 84 FL (80-99); MEAN PLATELET VOLUME 11.5 FL (7.4-10.4); MONOCYTES # (AUTO) 0.7 X 10^3 (0.0-1.0); MONOCYTES % (AUTO) 9 % (0-12); NEUTROPHILS # (AUTO) 4.9 X 10^3 (1.8-7.8); NEUTROPHILS % (AUTO) 64 % (42-75); PLATELET COUNT 143 10^3/uL (130-400); RED CELL DISTRIBUTION WIDTH 13.7 % (10.0-14.5); WHITE BLOOD COUNT 7.6 10^3/uL (4.3-11.0)
[2018-06-06 21:13] LABS: BILIRUBIN,URINE NEGATIVE (NEGATIVE); CLARITY,URINE SLIGHTLY CLOUDY; COLOR,URINE YELLOW; GLUCOSE, URINE (UA) NEGATIVE (NEGATIVE); KETONES,URINE NEGATIVE (NEGATIVE); LEUKOCYTE ESTERASE ,URINE 1+ (NEGATIVE); NITRITE,URINE NEGATIVE (NEGATIVE); PH,URINE 6 (5-9); PROTEIN,URINE NEGATIVE (NEGATIVE); UROBILINOGEN,URINE NORMAL (NORMAL)
[2018-06-06 21:15] LABS: ALANINE AMINOTRANSFERASE 8 U/L (0-55); ALBUMIN 3.8 GM/DL (3.2-4.5); ALKALINE PHOSPHATASE 50 U/L (40-136); BILIRUBIN,TOTAL 0.3 MG/DL (0.1-1.0); BUN/CREATININE RATIO 11; CALCIUM 9.2 MG/DL (8.5-10.1); CARBON DIOXIDE 23 MMOL/L (21-32); CHLORIDE 108 MMOL/L (98-107); CREATININE SERUM 0.64 MG/DL (0.60-1.30); GFR ESTIMATED > 60; GLUCOSE 83 MG/DL (70-105); POTASSIUM 3.3 MMOL/L (3.6-5.0); SODIUM 140 MMOL/L (135-145); TOTAL PROTEIN 6.3 GM/DL (6.4-8.2)
[2018-06-06 21:22] LABS: BACTERIA,URINE FEW /HPF
[2018-06-06 21:23] LABS: CALCIUM OXALATE CRYSTALS,UR MODERATE /LPF
[2018-06-06] MEDS ORDERED: CEFD300C3 PO (21:29)
[2018-06-06] MEDS ORDERED: CEFDINIR 300 MG (OMNICEF) CAP PO ONE (21:30)
[2018-06-06 21:40] VITALS: BP 110/58
== END 2018-06-06 21:40 | disposition home or self-care (01) ==
LOC: EDUNIT# 20:15 → ER 20:16
DX: O23.42 Unspecified infection of urinary tract in pregnancy, second trimester (principal); O99.342 Other mental disorders complicating pregnancy, second trimester; F41.9 Anxiety disorder, unspecified; O99.352 Diseases of the nervous system complicating pregnancy, second trimester; G43.909 Migraine, unspecified, not intractable, without status migrainosus; Z3A.18 18 weeks gestation of pregnancy
CPT/HCPCS: 36415; 80053; 81000; 84702; 85025; 87088; 87804

== ENCOUNTER → 2018-06-23 | Outpatient (CLI) | payer MEDICAID ==
[~2018-06-23] MED LIST changes: +CEFD300C3 PO
--- NOTE | 2018-06-23 11:52 | Diagnostic Imaging Report ---
INDICATION: survey. TECHNIQUE: Multiple real-time grayscale images were obtained over the gravid uterus. COMPARISON: None. FINDINGS: There is a single live fetus in a breech presentation. heart rate was recorded at 158 beats per minute. Placenta is anterior. Amniotic fluid volume is normal. Cervical length is 5.1 cm. survey demonstrates kidneys, bladder and stomach to be unremarkable. brain is unremarkable. There is a four-chamber heart. There is a three-vessel cord with normal insertion. The spine is unremarkable. Biometrical measurements are as follows: Biparietal 4.55 cm, age 19 weeks 6 days. Head circumference 17.53 cm, age 20 weeks 1 days. Abdominal circumference 15.05 cm, age 20 weeks 3 days. Femur length 3.49 cm, age 21 weeks 1 days. Sonographic estimate age: 20 weeks 3 days. Sonographic estimated date of delivery: 11/07/2018. Estimated Weight: 360 gm (+/- 53 gm). LMP percentile: 75%. heart rate: 158 beats per minute. number: 1 of 1. IMPRESSION: Single live IUP 20 weeks 3 days gestational age. The estimated date of confinement sonographically is 11/07/2018. Dictated by: Dictated on workstation # [id number]
== END ==
LOC: RAD 10:08
PROVIDERS: ATTEND Obstetrics & Gynecology
DX: Z36.89 Encounter for other specified antenatal screening (principal); Z3A.20 20 weeks gestation of pregnancy
CPT/HCPCS: 76805

== ENCOUNTER 2018-07-10 18:34 | Outpatient (CLI) | payer MEDICAID ==
[~2018-07-10] VITALS: Ht 160 cm; Wt 70.5 kg
--- NOTE | 2018-07-10 18:40 | NUR ---
MARGARET BANDA presented to unit via ambulation from ED, accompanied by self, with c/o CONTRACTIONS. MARGARET BANDA weighed, gowned, voided, and to bed. EFHM and TOCO applied, VS taken. MARGARET BANDA oriented to bed controls, call light, TV, heat, and A/C controls.
[2018-07-10 19:00] LABS: BILIRUBIN,URINE NEGATIVE (NEGATIVE); CLARITY,URINE SLIGHTLY CLOUDY; COLOR,URINE YELLOW; GLUCOSE, URINE (UA) NEGATIVE (NEGATIVE); KETONES,URINE NEGATIVE (NEGATIVE); LEUKOCYTE ESTERASE ,URINE 2+ (NEGATIVE); NITRITE,URINE NEGATIVE (NEGATIVE); PH,URINE 5 (5-9); PROTEIN,URINE NEGATIVE (NEGATIVE); UROBILINOGEN,URINE NORMAL (NORMAL)
[2018-07-10 19:08] LABS: BACTERIA,URINE FEW /HPF; SQUAMOUS EPITHELIAL CELL,UR >50 /HPF; WBC,URINE 25-50 /HPF
[2018-07-10] MEDS ORDERED: TERBUTALINE INJ 1 MG/ML (BRETHINE) AMP SC ONE (19:30)
[2018-07-10] MEDS ORDERED: TERBUTALINE INJ 1 MG/ML (BRETHINE) AMP ONE (19:36)
[2018-07-10] MEDS ORDERED: LACTATED RINGERS 1,000 ML IV ONE (19:36)
[2018-07-10] MEDS: LACTATED RINGERS 1,000 ML IV SCH ×2 (19:43→20:50)
[2018-07-10 20:15] VITALS: BP 133/63
--- NOTE | 2018-07-10 21:42 | NUR ---
IV bolus finished, IV removed. Discharge instructions discussed with pt. S.O. at side. Pt denies any questions or concerns. Signature sheet signed, placed on chart. Pt states is fine ambulating to private vehicle. Pt ambulating off unit. No signs of distress noted.
== END 2018-07-10 21:42 | disposition home or self-care (01) ==
LOC: WSo 18:34 → LDRP 18:35 → WSo 21:42
PROVIDERS: ATTEND Obstetrics & Gynecology
DX: O47.02 False labor before 37 completed weeks of gestation, second trimester (principal); Z3A.23 23 weeks gestation of pregnancy
CPT/HCPCS: 81000; 87088; 96360; 96361; 96372; 99213

== ENCOUNTER 2018-08-05 17:48 | Outpatient (CLI) | payer MEDICAID ==
[~2018-08-05] VITALS: Ht 160 cm; Wt 71.7 kg
--- NOTE | 2018-08-05 17:55 | NUR ---
MARGARET BANDA presented to unit via ambulation from home, with c/o DEHYDRATION. MARGARET BANDA weighed, gowned, voided, and to bed. EFHM and TOCO applied, VS taken. MARGARET BANDA oriented to bed controls, call light, TV, heat, and A/C controls.
[2018-08-05 18:02] VITALS: BP 125/58
--- NOTE | 2018-08-05 18:31 | NUR ---
Dr. Hollins notified of pt. arrival, complaints, and evaluation. Orders received via telephone with readback to give IV fluids and zofran if needed and once pt. feels better discharge home.
[2018-08-05] MEDS ORDERED: LACTATED RINGERS 1,000 ML IV ONE ×3 (18:44→19:26)
[2018-08-05] MEDS ORDERED: ONDANSETRON 4 MG/2 ML (SDV) Z0FRAN IVP PRN (18:45)
[2018-08-05 19:52] VITALS: BP 119/63
[2018-08-05] MEDS ORDERED: LACTATED RINGERS 1,000 ML IV SCH (21:00)
--- NOTE | 2018-08-05 21:55 | NUR ---
D/C instructions given & explained, pt. verbalized understanding & signed. Copy of D/C instructions to pt. Strongly encouraged pt. to drink water daily to prevent dehydration, pt. verbalized understanding. Pt. states she feels much better & "my urine is clear now, it was dark." Pt. asked if there was anything she could take for depression d/t "dealing w/FOB", pt. denies being suicidal, states she feels depressed & has asked dr. & was told to do counseling. Encouraged pt. to address w/dr again if she is feeling worse, pt. verbalized understanding & appreciative. Pt. left [facility] ambulatory, to home via private vehicle.
== END 2018-08-05 21:55 | disposition home or self-care (01) ==
LOC: WSo 17:48 → LDRP 17:50 → WSo 21:55
PROVIDERS: ATTEND Obstetrics & Gynecology
DX: O99.89 Other specified diseases and conditions complicating pregnancy, childbirth and the puerperium (principal); R42 Dizziness and giddiness; R06.02 Shortness of breath; Z3A.26 26 weeks gestation of pregnancy
CPT/HCPCS: 96360; 96361; 99213

== ENCOUNTER → 2018-08-31 | Outpatient (CLI) | payer MEDICAID | LOC: LAB 08:21 | PROVIDERS: ATTEND Obstetrics & Gynecology | DX: R73.02 Impaired glucose tolerance (oral) (principal) | CPT/HCPCS: 36415; 82951; 82952; 82962 ==

== ENCOUNTER 2018-10-22 14:34 | Outpatient (CLI) | payer MEDICAID ==
--- NOTE | 2018-10-22 13:53 | NUR ---
MARGARET BANDA presented to unit via ambulation from home, with c/o DECREASED MOVEMENT. MARGARET BANDA weighed, gowned, voided, and to bed. EFHM and TOCO applied, VS taken. MARGARET BANDA oriented to bed controls, call light, TV, heat, and A/C controls.
[2018-10-22 14:03] VITALS: BP 134/74
[2018-10-22 14:10] VITALS: BP 117/60
--- NOTE | 2018-10-22 14:15 | NUR ---
PT DENIES HAVING EVER HAD A MISCARRIAGE ALTHOUGH PRE-NEY RECORD STATES PT IS 4 PARA 2 AB 1.
--- NOTE | 2018-10-22 14:25 | NUR ---
Dr. Hollins called and notified of pt arrival, history, c/o decreased movement since last night. Notified of VS, reactive NST, ctx pattern. Pt c/o feeling some kapil watson ctx but nothing regular or uncomfortable. Orders rec'd to D/C.
--- NOTE | 2018-10-22 14:32 | NUR ---
GENTLE SVE PER PT REQUEST. 1.5CM/50%/-3 POSTERIOR AND BALLOTABLE. APPEARS VERTEX. QUICK BEDSIDE U/S TO CONFIRM VERTEX.
--- NOTE | 2018-10-22 14:34 | NUR ---
EFM OFF. UP TO GET DRESSED.
[2018-10-22] MEDS ORDERED: SERT50TA2 PO (14:46)
[2018-10-22 14:48] VITALS: BP 117/60
[2018-10-22 15:00] VITALS: BP 117/60
--- NOTE | 2018-10-22 15:00 | NUR ---
DISCHARGE INSTRUCTIONS REVIEWED WITH COPY TO PT. STATES UNDERSTANDING OF ALL INSTRUCTIONS AND NEED TO F/U SCHEDULED AND NEEDED. DISMISSED AMB FROM WS IN STABLE CONDITION.
== END 2018-10-22 15:00 | disposition home or self-care (01) ==
LOC: LDRP 14:34 → WSo 14:34
PROVIDERS: ATTEND Obstetrics & Gynecology
DX: O36.8130 Decreased fetal movements, third trimester, not applicable or unspecified (principal); Z3A.37 37 weeks gestation of pregnancy
CPT/HCPCS: 99213

== ENCOUNTER 2018-10-31 00:07 | Outpatient (CLI) | payer MEDICAID ==
[~2018-10-31] VITALS: Ht 160 cm; Wt 77.7 kg
[~2018-10-31 00:07] MED LIST changes: +SERT50TA2 PO
--- NOTE | 2018-10-31 00:10 | NUR ---
Pt presented to OB for c/o decreased movement. To room 315. Gowned, Wt, and UA obtained. Monitors applied.
--- NOTE | 2018-10-31 00:50 | NUR ---
FHT's 125, Accelerations present. Pt denies any ctx. States she feels a little bit of movement now.
--- NOTE | 2018-10-31 01:35 | NUR ---
Pt discharged home with instructions.
[2018-10-31 01:48] VITALS: BP 121/58
[2018-11-04] MEDS ORDERED: ACET-77 PO (11:55)
[2018-11-04] MEDS ORDERED: IBUP-844 PO (11:55)
[2018-11-04] MEDS ORDERED: FERR325T18 PO (11:55)
[2018-11-05] MEDS ORDERED: FLUC150T PO (10:55)
== END 2018-10-31 01:34 | disposition home or self-care (01) ==
LOC: WSo 00:07 → LDRP 00:09 → WSo 01:34
PROVIDERS: ATTEND Obstetrics & Gynecology
DX: O99.113 Other diseases of the blood and blood-forming organs and certain disorders involving the immune mechanism complicating pregnancy, third trimester (principal)
CPT/HCPCS: 99212

== ENCOUNTER 2018-11-02 19:50 | Inpatient (IN) | payer MEDICAID ==
[~2018-11-02] VITALS: Ht 160 cm; Wt 77.3 kg
[2018-11-02] MEDS: LACTATED RINGERS 1,000 ML IV SCH ×2 (19:40→22:05)
--- NOTE | 2018-11-02 19:50 | NUR ---
MARGARET BANDA presented to unit via AMBULATORY from ED, accompanied by S/O, with c/o INDUCTION. MARGARET BANDA weighed, gowned, voided, and to bed. EFHM and TOCO applied, VS taken. MARGARET BANDA oriented to bed controls, call light, TV, heat, and A/C controls. ASSESSMENTS TO FOLLOW PER THIS RN.
[2018-11-02] MEDS ORDERED: AMPICILLIN FOR IV USE 2,000 MG in WATER (STERILE) FOR INJECTION 14.8 ML IV SCH (20:38)
[2018-11-02] MEDS ORDERED: AMPICILLIN FOR IV USE 2,000 MG VIAL ONE (20:41)
[2018-11-02] MEDS ORDERED: WATER (STERILE) FOR INJECTION 20 ML ONE (20:42)
[2018-11-02] MEDS ORDERED: MISOPROSTOL 100 MCG (CYTOTEC) TAB PO ONE (20:45)
[2018-11-02] MEDS ORDERED: TERBUTALINE INJ 1 MG/ML (BRETHINE) AMP SC PRN (20:45)
[2018-11-02] MEDS ORDERED: MINERAL OIL CONCENTRATE 99.9% 15 ML UDC TOP PRN (20:45)
[2018-11-02 20:56] LABS: BASOPHILS % (AUTO) 0 % (0-10); EOSINOPHILS # (AUTO) 0.1 10^3/uL (0.0-0.3); EOSINOPHILS % (AUTO) 1 % (0-10); HEMATOCRIT 32 % (35-52); LYMPHOCYTES # (AUTO) 1.2 X 10^3 (1.0-4.0); LYMPHOCYTES % (AUTO) 15 % (12-44); MEAN CORPUSCULAR HEMOGLOBIN 24 PG (25-34); MEAN CORPUSCULAR HGB CONC 31 G/DL (32-36); MEAN CORPUSCULAR VOLUME 77 FL (80-99); MEAN PLATELET VOLUME 11.3 FL (7.4-10.4); MONOCYTES # (AUTO) 0.7 X 10^3 (0.0-1.0); MONOCYTES % (AUTO) 8 % (0-12); NEUTROPHILS # (AUTO) 6.1 X 10^3 (1.8-7.8); NEUTROPHILS % (AUTO) 76 % (42-75); PLATELET COUNT 139 10^3/uL (130-400)
[2018-11-02 21:00] VITALS: BP 122/65
[2018-11-02] MEDS: D5 LR IV SOLUTION 1,000 ML IV SCH (21:01)
[2018-11-02 22:00] VITALS: BP 111/66
[2018-11-02] MEDS ORDERED: CATHETER FLUSH 10 ML SYR IV SCH (22:00)
[2018-11-02 23:00] VITALS: BP 122/61
[2018-11-03] VITALS (40 sets, daily range): BP systolic 100–156; BP diastolic 52–71
[2018-11-03] MEDS ORDERED: MISOPROSTOL 100 MCG (CYTOTEC) TAB PO SCH (00:45)
[2018-11-03] MEDS: AMPICILLIN FOR IV USE 1,000 MG in WATER (STERILE) FOR INJECTION 7.4 ML IV SCH ×2 (01:03→05:01)
[2018-11-03 01:48] LABS: BILIRUBIN,URINE NEGATIVE (NEGATIVE); COLOR,URINE YELLOW; GLUCOSE, URINE (UA) NEGATIVE (NEGATIVE); KETONES,URINE NEGATIVE (NEGATIVE); LEUKOCYTE ESTERASE ,URINE 3+ (NEGATIVE); NITRITE,URINE NEGATIVE (NEGATIVE); PH,URINE 8 (5-9); PROTEIN,URINE NEGATIVE (NEGATIVE); UROBILINOGEN,URINE NORMAL (NORMAL)
[2018-11-03 01:56] LABS: BACTERIA,URINE FEW /HPF; CLARITY,URINE SL CLOUDY; RBC,URINE >100 /HPF
[2018-11-03] MEDS ORDERED: LACTATED RINGERS 1,000 ML IV SCH (03:00)
[2018-11-03] MEDS ORDERED: BUTORPHANOL INJ 2 MG/ML (STADOL) VIAL ONE (03:35)
--- OUTSIDE RECORDS SUMMARY | 2018-11-03 03:42 | XMS REPORT | Continuity of Care Document ---
Author Organization Unknown Address Unknown Phone Unavailable Allergies Active Description Code Type Severity Reaction Onset Reported/Identified Relationship to Patient Clinical Status Yes No Known Drug Allergies [id number] Drug Allergy Unknown N/A 10/31/2018 Medications There is no data. Problems Date Dx Coded Attending Type Code Diagnosis Diagnosed By 05/31/2017 KAREL MORALES Ot N30.00 ACUTE CYSTITIS WITHOUT HEMATURIA 05/31/2017 KAREL MORALES Ot R30.0 DYSURIA 05/31/2017 KAREL MORALES Ot Z20.2 CONTACT W AND EXPOSURE TO INFECT W A SEX 06/09/2017 KAREL MORALES Ot N30.00 ACUTE CYSTITIS WITHOUT HEMATURIA 06/09/2017 KAREL MORALES Ot R30.0 DYSURIA 06/09/2017 KAREL MORALES Ot Z20.2 CONTACT W AND EXPOSURE TO INFECT W A SEX 06/09/2017 KAREL MORALES Ot N30.00 ACUTE CYSTITIS WITHOUT HEMATURIA 06/09/2017 KAREL MORALES Ot R30.0 DYSURIA 06/09/2017 KAREL MORALES Ot Z20.2 CONTACT W AND EXPOSURE TO INFECT W A SEX 07/31/2017 KAREL MORALES Ot N30.00 ACUTE CYSTITIS WITHOUT HEMATURIA 07/31/2017 KAREL MORALES Ot R30.0 DYSURIA 07/31/2017 KAREL MORALES Ot Z20.2 CONTACT W AND EXPOSURE TO INFECT W A SEX 07/31/2017 ANA MARTINEZ Ot O99.89 OTH DISEASES AND CONDITIONS COMPL PREG/C 07/31/2017 ANA MARTINEZ Ot R10.31 RIGHT LOWER QUADRANT PAIN 07/31/2017 ANA MARTINEZ Ot Z3A.00 WEEKS OF GESTATION OF NOT SPEC 07/31/2017 VAN GONSALO, KAREL SPACE PHYSICIST Ot N30.00 ACUTE CYSTITIS WITHOUT HEMATURIA 07/31/2017 KAREL MORALESP Ot R30.0 DYSURIA 07/31/2017 KAREL MORALESP Ot Z20.2 CONTACT W AND EXPOSURE TO INFECT W A SEX 08/02/2017 ANA MARTINEZ SPACE PHYSICIST Ot O99.89 OTH DISEASES AND CONDITIONS COMPL PREG/C 08/02/2017 ANA MARTINEZ SPACE PHYSICIST Ot R10.31 RIGHT LOWER QUADRANT PAIN 08/02/2017 ANA MARTINEZ SPACE PHYSICIST Ot Z3A.00 WEEKS OF GESTATION OF NOT SPEC 08/15/2017 DEVI CASTELLON L Ot E86.0 DEHYDRATION 08/15/2017 DEVI CASTELLON L Ot O03.88 URINARY TRACT INFECTION FOL COMPLETE OR 08/15/2017 DEVI CASTELLON L Ot O99.281 ENDO, NUTRITIONAL AND METAB DISEASES COM 08/15/2017 DEVI CASTELLON L Ot O99.89 OTH DISEASES AND CONDITIONS COMPL PREG/C 08/17/2017 DEVI CASTELLON Ot E86.0 DEHYDRATION 08/17/2017 DEVI CASTELLON L Ot O03.88 URINARY TRACT INFECTION FOL COMPLETE OR 08/17/2017 DEVI CASTELLON L Ot O99.281 ENDO, NUTRITIONAL AND METAB DISEASES COM 08/17/2017 RUDY CASTELLONEN L Ot O99.89 OTH DISEASES AND CONDITIONS COMPL PREG/C 11/24/2017 BERNÁLVARO, JAMMIE Ot N39.0 URINARY TRACT INFECTION, SITE NOT SPECIF 11/24/2017 BERNSTEFANIA REAIS Ot R10.30 LOWER ABDOMINAL PAIN, UNSPECIFIED 11/24/2017 BERNSTEFANIA REAIS Ot Z87.59 PERSONAL HISTORY OF COMP OF PREG, CHLDBR 11/28/2017 BERNOT JAMMIE Ot N39.0 URINARY TRACT INFECTION, SITE NOT SPECIF 11/28/2017 BERNSTEFANIA REAIS Ot R10.30 LOWER ABDOMINAL PAIN, UNSPECIFIED 11/28/2017 BERNSTEFANIA REAIS Ot Z87.59 PERSONAL HISTORY OF COMP OF PREG, CHLDBR 03/09/2018 KAREL MORALESP Ot N30.00 ACUTE CYSTITIS WITHOUT HEMATURIA 03/09/2018 KAREL MORALESP Ot R30.0 DYSURIA 03/09/2018 KAREL MORALES Ot Z20.2 CONTACT W AND EXPOSURE TO INFECT W A SEX 03/09/2018 KAREL MORALES Ot N30.00 ACUTE CYSTITIS WITHOUT HEMATURIA 03/09/2018 KAREL MORALES Ot R30.0 DYSURIA 03/09/2018 KAREL MORALES Ot Z20.2 CONTACT W AND EXPOSURE TO INFECT W A SEX 03/09/2018 LEE BORDEN MD Ot O26.891 OTH RELATED CONDITIONS, FIRST 03/09/2018 LEE BORDEN MD Ot R10.12 LEFT UPPER QUADRANT PAIN 03/09/2018 LEE BORDEN MD Ot Z3A.01 LESS THAN 8 WEEKS GESTATION OF 03/21/2018 KAREL MORALES Ot N30.00 ACUTE CYSTITIS WITHOUT HEMATURIA 03/21/2018 KAREL MORALES Ot R30.0 DYSURIA 03/21/2018 KAREL MORALES Ot Z20.2 CONTACT W AND EXPOSURE TO INFECT W A SEX 03/21/2018 FRANCESCA CORONA APRN Ot O26.891 OTH RELATED CONDITIONS, FIRST 03/21/2018 FRANCESCA CORONA APRN Ot R51 HEADACHE 03/21/2018 FRANCESCA CORONA APRN Ot Z3A.01 LESS THAN 8 WEEKS GESTATION OF 03/21/2018 FRANCESCA CORONA APRN Ot Z86.69 PERSONAL HISTORY OF DIS OF THE NERVOUS S 03/24/2018 FRANCESCA CORONA APRN Ot O26.891 OTH RELATED CONDITIONS, FIRST 03/24/2018 FRANCESCA CORONA APRN Ot R51 HEADACHE 03/24/2018 FRANCESCA CORONA APRN Ot Z3A.01 LESS THAN 8 WEEKS GESTATION OF 03/24/2018 FRANCESCA CORONA APRN Ot Z86.69 PERSONAL HISTORY OF DIS OF THE NERVOUS S 03/27/2018 FRANCESCA CORONA APRN Ot O26.891 OTH RELATED CONDITIONS, FIRST 03/27/2018 FRANCESCA CORONA APRN Ot R51 HEADACHE 03/27/2018 FRANCESCA CORONA APRN Ot Z3A.01 LESS THAN 8 WEEKS GESTATION OF 03/27/2018 FRANCESCA CORONA APRN Ot Z86.69 PERSONAL HISTORY OF DIS OF THE NERVOUS S 04/30/2018 JAMMIE LOPEZ Ot G43.909 MIGRAINE, UNSP, NOT INTRACTABLE, WITHOUT 04/30/2018 JMAMIE LOPEZ Ot O20.0 THREATENED 04/30/2018 JAMMIE LOPEZ Ot O20.9 HEMORRHAGE IN EARLY , UNSPECIFI 04/30/2018 JAMMIE LOPEZ Ot O99.351 DISEASES OF THE NERVOUS SYS COMP PREGNAN 04/30/2018 JAMMIE LOPEZ Ot Z3A.13 13 WEEKS GESTATION OF 06/06/2018 GENESIS ALISSA K Ot F41.9 ANXIETY DISORDER, UNSPECIFIED 06/06/2018 GENESIS ALISSA K Ot G43.909 MIGRAINE, UNSP, NOT INTRACTABLE, WITHOUT 06/06/2018 GENESIS DO ALISSA K Ot O23.42 UNSP INFCT OF URINARY TRACT IN 06/06/2018 GENESIS ALISSA K Ot O99.342 OTH MENTAL DISORDERS COMP , SEC 06/06/2018 GENESIS ALISSA K Ot O99.352 DISEASES OF THE NERVOUS SYS COMP PREGNAN 06/06/2018 GENESIS ALISSA K Ot Z3A.18 18 WEEKS GESTATION OF 06/23/2018 WHEATLEY DO, KOLTON C Ot Z36.89 ENCOUNTER FOR OTHER SPECIFIED 06/23/2018 WHEATLEY DO, KOLTON C Ot Z3A.20 20 WEEKS GESTATION OF 07/10/2018 SEALS DO, DENNY E Ot O47.02 FALSE LABOR BEFORE 37 COMPLETED WEEKS OF 07/10/2018 SEALS DO, DENNY E Ot Z3A.23 23 WEEKS GESTATION OF 07/11/2018 WHEATLEY DO, KOLTON C Ot Z36.89 ENCOUNTER FOR OTHER SPECIFIED 07/11/2018 WHEATLEY DO, KOLTON C Ot Z3A.20 20 WEEKS GESTATION OF 07/12/2018 SEALS DO, DENNY E Ot O47.02 FALSE LABOR BEFORE 37 COMPLETED WEEKS OF 07/12/2018 SEALS DO, DENNY E Ot Z3A.23 23 WEEKS GESTATION OF 08/02/2018 KAREL MORALES Ot N30.00 ACUTE CYSTITIS WITHOUT HEMATURIA 08/02/2018 KAREL MORALES Ot R30.0 DYSURIA 08/02/2018 KAREL MORALES Ot Z20.2 CONTACT W AND EXPOSURE TO INFECT W A SEX 08/02/2018 KOLTON WHEATLEY DO Ot Z36.89 ENCOUNTER FOR OTHER SPECIFIED 08/02/2018 KOLTON WHEATLEY DO Ot Z3A.20 20 WEEKS GESTATION OF 08/05/2018 SEALS DOKANRY E Ot O99.89 OTH DISEASES AND CONDITIONS COMPL PREG/C 08/05/2018 SEALS DO, DENNY E Ot R06.02 SHORTNESS OF BREATH 08/05/2018 SEALS DO, DENNY E Ot R42 DIZZINESS AND GIDDINESS 08/05/2018 SEALS DO, DENNY E Ot Z3A.26 26 WEEKS GESTATION OF 08/08/2018 SEALS DO, DENNY E Ot O99.89 OTH DISEASES AND CONDITIONS COMPL PREG/C 08/08/2018 SEALS DO, DENNY E Ot R06.02 SHORTNESS OF BREATH 08/08/2018 SEALS DO, DENNY E Ot R42 DIZZINESS AND GIDDINESS 08/08/2018 SEALS DO, DENNY E Ot Z3A.26 26 WEEKS GESTATION OF 08/31/2018 KAREL MORALES Ot N30.00 ACUTE CYSTITIS WITHOUT HEMATURIA 08/31/2018 KAREL MORALES Ot R30.0 DYSURIA 08/31/2018 KAREL MORALES Ot Z20.2 CONTACT W AND EXPOSURE TO INFECT W A SEX 08/31/2018 KOLTON WHEATLEY DO Ot Z36.89 ENCOUNTER FOR OTHER SPECIFIED 08/31/2018 KOLTON WHEATLEY DO Ot Z3A.20 20 WEEKS GESTATION OF 09/18/2018 KOLTON WHEATLEY DO Ot R73.02 IMPAIRED GLUCOSE TOLERANCE (ORAL) 10/22/2018 VANNESSA DO DENNY E Ot O36.8130 DECREASED MOVEMENTS, THIRD TRIMEST 10/22/2018 SEALS DO, DENNY E Ot Z3A.37 37 WEEKS GESTATION OF 10/24/2018 SEALS DO, DENNY E Ot O36.8130 DECREASED MOVEMENTS, THIRD TRIMEST 10/24/2018 SEALS DO, DENNY E Ot Z3A.37 37 WEEKS GESTATION OF Procedures There is no data. Results Test Result Range Bacterial urine culture - 05/27/17 17:47 Bacterial urine culture [id number] NRG COLONY COUNT 10,000/ML - 100,000/ML NRG FTX;REPORTABLE SENSITIVITY REPORTED 05/29/17 17:25 - NRG Bacterial susceptibility panel - 05/27/17 17:47 Gentamicin susceptibility test by minimum inhibitory concentration <= NRG Trimethoprim/sulfamethoxazole susceptibility test by minimum inhibitoryconcentration S NRG Ampicillin susceptibility test by minimum inhibitory concentration >= NRG Tobramycin susceptibility test by minimum inhibitory concentration <= NRG Cefazolin susceptibility test by minimum inhibitory concentration <= NRG Ceftriaxone susceptibility test by minimum inhibitory concentration <= NRG Ampicillin/sulbactam susceptibility test by minimum inhibitory concentration I NRG Piperacillin/tazobactam susceptibility test by minimum inhibitory concentration S NRG Ciprofloxacin susceptibility test by minimum inhibitory concentration <= NRG Meropenem susceptibility test by minimum inhibitory concentration <= NRG Nitrofurantoin susceptibility test by minimum inhibitory concentration <= NRG Aztreonam susceptibility test by minimum inhibitory concentration <= NRG Extended spectrum beta lactamase (ESBL) producing bacteria susceptibility test by minimum inhibitory concentration - NRG Complete urinalysis with reflex to culture - 07/31/17 21:44 Urine color determination YELLOW NRG Urine clarity determination VERY CLOUDY NRG Urine pH measurement by test strip 7 5-9 Specific gravity of urine by test strip 1.010 1.016-1.022 Urine protein assay by test strip, semi-quantitative NEGATIVE NEGATIVE Urine glucose detection by automated test strip NEGATIVE NEGATIVE Erythrocytes detection in urine sediment by light microscopy NEGATIVE NEGATIVE Urine ketones detection by automated test strip NEGATIVE NEGATIVE Urine nitrite detection by test strip NEGATIVE NEGATIVE Urine total bilirubin detection by test strip NEGATIVE NEGATIVE Urine urobilinogen measurement by automated test strip (mass/volume) 4 mg/dL NORMAL Urine leukocyte esterase detection by dipstick 1+ NEGATIVE Automated urine sediment erythrocyte count by microscopy (number/high power field) NONE NRG Automated urine sediment leukocyte count by microscopy (number/high power field) [HPF] NRG Bacteria detection in urine sediment by light microscopy FEW NRG Squamous epithelial cells detection in urine sediment by light microscopy 10-25 NRG Crystals detection in urine sediment by light microscopy PRESENT NRG Casts detection in urine sediment by light microscopy NONE NRG Mucus detection in urine sediment by light microscopy NEGATIVE NRG Complete urinalysis with reflex to culture NO NRG Amorphous sediment detection in urine sediment by light microscopy LARGE MICHELLE PHOSPHATE NRG Complete blood count (CBC) with automated white blood cell (WBC) differential - 07/31/17 22:00 Blood leukocytes automated count (number/volume) 6.5 10*3/uL 4.3-11.0 Blood erythrocytes automated count (number/volume) 4.68 10*6/uL 4.35-5.85 Venous blood hemoglobin measurement (mass/volume) 13.6 g/dL 11.5-16.0 Blood hematocrit (volume fraction) 40 % 35-52 Automated erythrocyte mean corpuscular volume 85 [foz_us] 80-99 Automated erythrocyte mean corpuscular hemoglobin (mass per erythrocyte) 29 pg 25-34 Automated erythrocyte mean corpuscular hemoglobin concentration measurement (mass/volume) 34 g/dL 32-36 Automated erythrocyte distribution width ratio 13.4 % 10.0- 14.5 Automated blood platelet count (count/volume) 193 10*3/uL 130-400 Automated blood platelet mean volume measurement 11.0 [foz_us] 7.4-10.4 Automated blood neutrophils/100 leukocytes 53 % 42-75 Automated blood lymphocytes/100 leukocytes 35 % 12-44 Blood monocytes/100 leukocytes 8 % 0-12 Automated blood eosinophils/100 leukocytes 3 % 0-10 Automated blood basophils/100 leukocytes 0 % 0-10 Blood neutrophils automated count (number/volume) 3.4 10*3 1.8-7.8 Blood lymphocytes automated count (number/volume) 2.3 10*3 1.0-4.0 Blood monocytes automated count (number/volume) 0.6 10*3 0.0- 1.0 Automated eosinophil count 0.2 10*3/uL 0.0-0.3 Automated blood basophil count (count/volume) 0.0 10*3/uL 0.0-0.1 Comprehensive metabolic panel - 07/31/17 22:00 Serum or plasma sodium measurement (moles/volume) 140 mmol/L 135-145 Serum or plasma potassium measurement (moles/volume) 3.7 mmol/L 3.6-5.0 Serum or plasma chloride measurement (moles/volume) 111 mmol/L 98-107 Carbon dioxide 21 mmol/L 21-32 Serum or plasma anion gap determination (moles/volume) 8 mmol/L 5-14 Serum or plasma urea nitrogen measurement (mass/volume) 8 mg/dL 7-18 Serum or plasma creatinine measurement (mass/volume) 0.73 mg/dL 0.60-1.30 Serum or plasma urea nitrogen/creatinine mass ratio 11 NRG Serum or plasma creatinine measurement with calculation of estimated glomerular filtration rate > NRG Serum or plasma glucose measurement (mass/volume) 100 mg/dL 70-105 Serum or plasma calcium measurement (mass/volume) 9.6 mg/dL 8.5-10.1 Serum or plasma total bilirubin measurement (mass/volume) 0.8 mg/dL 0.1-1.0 Serum or plasma alkaline phosphatase measurement (enzymatic activity/volume) 68 U/L 40-136 Serum or plasma aspartate aminotransferase measurement (enzymatic activity/volume) 20 U/L 5-34 Serum or plasma alanine aminotransferase measurement (enzymatic activity/volume) 19 U/L 0-55 Serum or plasma protein measurement (mass/volume) 7.3 g/dL 6.4-8.2 Serum or plasma albumin measurement (mass/volume) 4.6 g/dL 3.2-4.5 Serum or plasma choriogonadotropin measurement (units/volume) - 07/31/17 22:00 Serum or plasma choriogonadotropin measurement (units/volume) 972 m[iU]/mL <5 Complete blood count (CBC) with automated white blood cell (WBC) differential - 08/15/17 21:23 Blood leukocytes automated count (number/volume) 6.2 10*3/uL 4.3-11.0 Blood erythrocytes automated count (number/volume) 4.46 10*6/uL 4.35-5.85 Venous blood hemoglobin measurement (mass/volume) 13.2 g/dL 11.5-16.0 Blood hematocrit (volume fraction) 39 % 35-52 Automated erythrocyte mean corpuscular volume 87 [foz_us] 80-99 Automated erythrocyte mean corpuscular hemoglobin (mass per erythrocyte) 30 pg 25-34 Automated erythrocyte mean corpuscular hemoglobin concentration measurement (mass/volume) 34 g/dL 32-36 Automated erythrocyte distribution width ratio 13.1 % 10.0- 14.5 Automated blood platelet count (count/volume) 172 10*3/uL 130-400 Automated blood platelet mean volume measurement 11.5 [foz_us] 7.4-10.4 Automated blood neutrophils/100 leukocytes 55 % 42-75 Automated blood lymphocytes/100 leukocytes 34 % 12-44 Blood monocytes/100 leukocytes 9 % 0-12 Automated blood eosinophils/100 leukocytes 3 % 0-10 Automated blood basophils/100 leukocytes 0 % 0-10 Blood neutrophils automated count (number/volume) 3.4 10*3 1.8-7.8 Blood lymphocytes automated count (number/volume) 2.1 10*3 1.0-4.0 Blood monocytes automated count (number/volume) 0.5 10*3 0.0- 1.0 Automated eosinophil count 0.2 10*3/uL 0.0-0.3 Automated blood basophil count (count/volume) 0.0 10*3/uL 0.0-0.1 Complete urinalysis with reflex to culture - 08/15/17 21:23 Urine color determination RED NRG Urine clarity determination SLIGHTLY CLOUDY NRG Urine pH measurement by test strip 6 5-9 Specific gravity of urine by test strip 1.025 1.016-1.022 Urine protein assay by test strip, semi-quantitative 3+ NEGATIVE Urine glucose detection by automated test strip NEGATIVE NEGATIVE Erythrocytes detection in urine sediment by light microscopy 5+ NEGATIVE Urine ketones detection by automated test strip 1+ NEGATIVE Urine nitrite detection by test strip NEGATIVE NEGATIVE Urine total bilirubin detection by test strip NEGATIVE NEGATIVE Urine urobilinogen measurement by automated test strip (mass/volume) 1 mg/dL NORMAL Urine leukocyte esterase detection by dipstick 2+ NEGATIVE Automated urine sediment erythrocyte count by microscopy (number/high power field) TNTC NRG Automated urine sediment leukocyte count by microscopy (number/high power field) [HPF] NRG Bacteria detection in urine sediment by light microscopy FEW NRG Squamous epithelial cells detection in urine sediment by light microscopy 10-25 NRG Crystals detection in urine sediment by light microscopy NONE NRG Casts detection in urine sediment by light microscopy NONE NRG Mucus detection in urine sediment by light microscopy NEGATIVE NRG Complete urinalysis with reflex to culture YES NRG Comprehensive metabolic panel - 08/15/17 21:23 Serum or plasma sodium measurement (moles/volume) 141 mmol/L 135-145 Serum or plasma potassium measurement (moles/volume) 3.8 mmol/L 3.6-5.0 Serum or plasma chloride measurement (moles/volume) 110 mmol/L 98-107 Carbon dioxide 21 mmol/L 21-32 Serum or plasma anion gap determination (moles/volume) 10 mmol/L 5-14 Serum or plasma urea nitrogen measurement (mass/volume) 6 mg/dL 7-18 Serum or plasma creatinine measurement (mass/volume) 0.70 mg/dL 0.60-1.30 Serum or plasma urea nitrogen/creatinine mass ratio 9 NRG Serum or plasma creatinine measurement with calculation of estimated glomerular filtration rate > NRG Serum or plasma glucose measurement (mass/volume) 109 mg/dL 70-105 Serum or plasma calcium measurement (mass/volume) 9.5 mg/dL 8.5-10.1 Serum or plasma total bilirubin measurement (mass/volume) 0.6 mg/dL 0.1-1.0 Serum or plasma alkaline phosphatase measurement (enzymatic activity/volume) 63 U/L 40-136 Serum or plasma aspartate aminotransferase measurement (enzymatic activity/volume) 15 U/L 5-34 Serum or plasma alanine aminotransferase measurement (enzymatic activity/volume) 11 U/L 0-55 Serum or plasma protein measurement (mass/volume) 6.8 g/dL 6.4-8.2 Serum or plasma albumin measurement (mass/volume) 4.4 g/dL 3.2-4.5 Serum or plasma choriogonadotropin measurement (units/volume) - 08/15/17 21:23 Serum or plasma choriogonadotropin measurement (units/volume) 1275 m[iU]/mL <5 Bacterial urine culture - 08/15/17 21:23 Bacterial urine culture [id number] NRG COLONY COUNT >100,000/ML NRG FTX;REPORTABLE REPORTED BY [facility] 08/16 17:05 NRG Complete urinalysis with reflex to culture - 11/24/17 14:34 Urine color determination YELLOW NRG Urine clarity determination CLEAR NRG Urine pH measurement by test strip 5 5-9 Specific gravity of urine by test strip 1.020 1.016-1.022 Urine protein assay by test strip, semi-quantitative NEGATIVE NEGATIVE Urine glucose detection by automated test strip NEGATIVE NEGATIVE Erythrocytes detection in urine sediment by light microscopy NEGATIVE NEGATIVE Urine ketones detection by automated test strip NEGATIVE NEGATIVE Urine nitrite detection by test strip NEGATIVE NEGATIVE Urine total bilirubin detection by test strip NEGATIVE NEGATIVE Urine urobilinogen measurement by automated test strip (mass/volume) NORMAL NORMAL Urine leukocyte esterase detection by dipstick 1+ NEGATIVE Automated urine sediment erythrocyte count by microscopy (number/high power field) NONE NRG Automated urine sediment leukocyte count by microscopy (number/high power field) [HPF] NRG Bacteria detection in urine sediment by light microscopy MODERATE NRG Squamous epithelial cells detection in urine sediment by light microscopy 10-25 NRG Crystals detection in urine sediment by light microscopy NONE NRG Casts detection in urine sediment by light microscopy NONE NRG Mucus detection in urine sediment by light microscopy SMALL NRG Complete urinalysis with reflex to culture YES NRG Bacterial urine culture - 11/24/17 14:34 Bacterial urine culture SEE COMMEN NRG COLONY COUNT . NRG Complete blood count (CBC) with automated white blood cell (WBC) differential - 11/24/17 14:45 Blood leukocytes automated count (number/volume) 5.2 10*3/uL 4.3-11.0 Blood erythrocytes automated count (number/volume) 4.80 10*6/uL 4.35-5.85 Venous blood hemoglobin measurement (mass/volume) 14.2 g/dL 11.5-16.0 Blood hematocrit (volume fraction) 41 % 35-52 Automated erythrocyte mean corpuscular volume 85 [foz_us] 80-99 Automated erythrocyte mean corpuscular hemoglobin (mass per erythrocyte) 30 pg 25-34 Automated erythrocyte mean corpuscular hemoglobin concentration measurement (mass/volume) 35 g/dL 32-36 Automated erythrocyte distribution width ratio 12.5 % 10.0- 14.5 Automated blood platelet count (count/volume) 154 10*3/uL 130-400 Automated blood platelet mean volume measurement 11.4 [foz_us] 7.4-10.4 Automated blood neutrophils/100 leukocytes 60 % 42-75 Automated blood lymphocytes/100 leukocytes 29 % 12-44 Blood monocytes/100 leukocytes 8 % 0-12 Automated blood eosinophils/100 leukocytes 2 % 0-10 Automated blood basophils/100 leukocytes 0 % 0-10 Blood neutrophils automated count (number/volume) 3.1 10*3 1.8-7.8 Blood lymphocytes automated count (number/volume) 1.5 10*3 1.0-4.0 Blood monocytes automated count (number/volume) 0.4 10*3 0.0- 1.0 Automated eosinophil count 0.1 10*3/uL 0.0-0.3 Automated blood basophil count (count/volume) 0.0 10*3/uL 0.0-0.1 Comprehensive metabolic panel - 11/24/17 14:45 Serum or plasma sodium measurement (moles/volume) 139 mmol/L 135-145 Serum or plasma potassium measurement (moles/volume) 3.6 mmol/L 3.6-5.0 Serum or plasma chloride measurement (moles/volume) 106 mmol/L 98-107 Carbon dioxide 22 mmol/L 21-32 Serum or plasma anion gap determination (moles/volume) 11 mmol/L 5-14 Serum or plasma urea nitrogen measurement (mass/volume) 8 mg/dL 7-18 Serum or plasma creatinine measurement (mass/volume) 0.76 mg/dL 0.60-1.30 Serum or plasma urea nitrogen/creatinine mass ratio 11 NRG Serum or plasma creatinine measurement with calculation of estimated glomerular filtration rate > NRG Serum or plasma glucose measurement (mass/volume) 82 mg/dL 70-105 Serum or plasma calcium measurement (mass/volume) 9.5 mg/dL 8.5-10.1 Serum or plasma total bilirubin measurement (mass/volume) 0.9 mg/dL 0.1-1.0 Serum or plasma alkaline phosphatase measurement (enzymatic activity/volume) 61 U/L 40-136 Serum or plasma aspartate aminotransferase measurement (enzymatic activity/volume) 15 U/L 5-34 Serum or plasma alanine aminotransferase measurement (enzymatic activity/volume) 9 U/L 0-55 Serum or plasma protein measurement (mass/volume) 7.0 g/dL 6.4-8.2 Serum or plasma albumin measurement (mass/volume) 4.5 g/dL 3.2-4.5 CALCIUM CORRECTED 9.1 mg/dL 8.5-10.1 Serum or plasma amylase measurement (enzymatic activity/volume) - 11/24/17 14:45 Serum or plasma amylase measurement (enzymatic activity/volume) 45 U/L 25-125 Lipase - 11/24/17 14:45 Lipase 36 U/L 8-78 Serum or plasma choriogonadotropin measurement (units/volume) - 11/24/17 14:45 Serum or plasma choriogonadotropin measurement (units/volume) < m[iU]/mL <5 Urine beta human chorionic gonadotropin (hCG) measurement - 03/09/18 18:34 Urine beta human chorionic gonadotropin (hCG) measurement POSITIVE NEGATIVE Complete urinalysis with reflex to culture - 03/09/18 18:34 Urine color determination YELLOW NRG Urine clarity determination CLEAR NRG Urine pH measurement by test strip 7 5-9 Specific gravity of urine by test strip 1.015 1.016-1.022 Urine protein assay by test strip, semi-quantitative NEGATIVE NEGATIVE Urine glucose detection by automated test strip NEGATIVE NEGATIVE Erythrocytes detection in urine sediment by light microscopy NEGATIVE NEGATIVE Urine ketones detection by automated test strip NEGATIVE NEGATIVE Urine nitrite detection by test strip NEGATIVE NEGATIVE Urine total bilirubin detection by test strip NEGATIVE NEGATIVE Urine urobilinogen measurement by automated test strip (mass/volume) 1 mg/dL NORMAL Urine leukocyte esterase detection by dipstick 1+ NEGATIVE Automated urine sediment erythrocyte count by microscopy (number/high power field) NONE NRG Automated urine sediment leukocyte count by microscopy (number/high power field) [HPF] NRG Bacteria detection in urine sediment by light microscopy NONE NRG Squamous epithelial cells detection in urine sediment by light microscopy 10-25 NRG Crystals detection in urine sediment by light microscopy PRESENT NRG Casts detection in urine sediment by light microscopy NONE NRG Mucus detection in urine sediment by light microscopy NONE NRG Complete urinalysis with reflex to culture NO NRG Amorphous sediment detection in urine sediment by light microscopy LARGE MICHELLE URATES NRG Urine drug screening test - 03/09/18 18:34 Urine phencyclidine detection by screening method NEGATIVE NEGATIVE Urine benzodiazepines detection by screening method NEGATIVE NEGATIVE Urine cocaine detection NEGATIVE NEGATIVE Urine amphetamines detection by screening method NEGATIVE NEGATIVE Urine methamphetamine detection by screening method NEGATIVE NEGATIVE Urine cannabinoids detection by screening method NEGATIVE NEGATIVE Urine opiates detection by screening method NEGATIVE NEGATIVE Urine barbiturates detection NEGATIVE NEGATIVE Screening urine tricyclic antidepressants detection NEGATIVE NEGATIVE Urine methadone detection by screening method NEGATIVE NEGATIVE Urine oxycodone detection NEGATIVE NEGATIVE Urine propoxyphene detection NEGATIVE NEGATIVE Complete blood count (CBC) with automated white blood cell (WBC) differential - 03/09/18 18:45 Blood leukocytes automated count (number/volume) 5.6 10*3/uL 4.3-11.0 Blood erythrocytes automated count (number/volume) 4.47 10*6/uL 4.35-5.85 Venous blood hemoglobin measurement (mass/volume) 12.9 g/dL 11.5-16.0 Blood hematocrit (volume fraction) 39 % 35-52 Automated erythrocyte mean corpuscular volume 86 [foz_us] 80-99 Automated erythrocyte mean corpuscular hemoglobin (mass per erythrocyte) 29 pg 25-34 Automated erythrocyte mean corpuscular hemoglobin concentration measurement (mass/volume) 34 g/dL 32-36 Automated erythrocyte distribution width ratio 13.1 % 10.0- 14.5 Automated blood platelet count (count/volume) 170 10*3/uL 130-400 Automated blood platelet mean volume measurement 11.5 [foz_us] 7.4-10.4 Automated blood neutrophils/100 leukocytes 54 % 42-75 Automated blood lymphocytes/100 leukocytes 33 % 12-44 Blood monocytes/100 leukocytes 12 % 0-12 Automated blood eosinophils/100 leukocytes 2 % 0-10 Automated blood basophils/100 leukocytes 0 % 0-10 Blood neutrophils automated count (number/volume) 3.0 10*3 1.8-7.8 Blood lymphocytes automated count (number/volume) 1.8 10*3 1.0-4.0 Blood monocytes automated count (number/volume) 0.6 10*3 0.0- 1.0 Automated eosinophil count 0.1 10*3/uL 0.0-0.3 Automated blood basophil count (count/volume) 0.0 10*3/uL 0.0-0.1 Serum heterophile antibody titer - 03/09/18 18:45 Serum heterophile antibody titer NEGATIVE NEGATIVE Comprehensive metabolic panel - 03/09/18 18:45 Serum or plasma sodium measurement (moles/volume) 139 mmol/L 135-145 Serum or plasma potassium measurement (moles/volume) 3.9 mmol/L 3.6-5.0 Serum or plasma chloride measurement (moles/volume) 110 mmol/L 98-107 Carbon dioxide 20 mmol/L 21-32 Serum or plasma anion gap determination (moles/volume) 9 mmol/L 5-14 Serum or plasma urea nitrogen measurement (mass/volume) 15 mg/dL 7-18 Serum or plasma creatinine measurement (mass/volume) 0.80 mg/dL 0.60-1.30 Serum or plasma urea nitrogen/creatinine mass ratio 19 NRG Serum or plasma creatinine measurement with calculation of estimated glomerular filtration rate > NRG Serum or plasma glucose measurement (mass/volume) 93 mg/dL 70-105 Serum or plasma calcium measurement (mass/volume) 9.0 mg/dL 8.5-10.1 Serum or plasma total bilirubin measurement (mass/volume) 0.8 mg/dL 0.1-1.0 Serum or plasma alkaline phosphatase measurement (enzymatic activity/volume) 57 U/L 40-136 Serum or plasma aspartate aminotransferase measurement (enzymatic activity/volume) 19 U/L 5-34 Serum or plasma alanine aminotransferase measurement (enzymatic activity/volume) 14 U/L 0-55 Serum or plasma protein measurement (mass/volume) 6.7 g/dL 6.4-8.2 Serum or plasma albumin measurement (mass/volume) 4.3 g/dL 3.2-4.5 CALCIUM CORRECTED 8.8 mg/dL 8.5-10.1 Lipase - 03/09/18 18:45 Lipase 27 U/L 8-78 Automated blood complete blood count (hemogram) panel - 04/30/18 10:56 Blood leukocytes automated count (number/volume) 4.1 10*3/uL 4.3-11.0 Blood erythrocytes automated count (number/volume) 4.60 10*6/uL 4.35-5.85 Venous blood hemoglobin measurement (mass/volume) 13.4 g/dL 11.5-16.0 Blood hematocrit (volume fraction) 39 % 35-52 Automated erythrocyte mean corpuscular volume 84 [foz_us] 80-99 Automated erythrocyte mean corpuscular hemoglobin (mass per erythrocyte) 29 pg 25-34 Automated erythrocyte mean corpuscular hemoglobin concentration measurement (mass/volume) 35 g/dL 32-36 Automated erythrocyte distribution width ratio 13.4 % 10.0- 14.5 Automated blood platelet count (count/volume) 165 10*3/uL 130-400 Automated blood platelet mean volume measurement 11.2 [foz_us] 7.4-10.4 Comprehensive metabolic panel - 04/30/18 10:56 Serum or plasma sodium measurement (moles/volume) 138 mmol/L 135-145 Serum or plasma potassium measurement (moles/volume) 3.8 mmol/L 3.6-5.0 Serum or plasma chloride measurement (moles/volume) 109 mmol/L 98-107 Carbon dioxide 18 mmol/L 21-32 Serum or plasma anion gap determination (moles/volume) 11 mmol/L 5-14 Serum or plasma urea nitrogen measurement (mass/volume) 5 mg/dL 7-18 Serum or plasma creatinine measurement (mass/volume) 0.68 mg/dL 0.60-1.30 Serum or plasma urea nitrogen/creatinine mass ratio 7 NRG Serum or plasma creatinine measurement with calculation of estimated glomerular filtration rate > NRG Serum or plasma glucose measurement (mass/volume) 86 mg/dL 70-105 Serum or plasma calcium measurement (mass/volume) 9.2 mg/dL 8.5-10.1 Serum or plasma total bilirubin measurement (mass/volume) 0.6 mg/dL 0.1-1.0 Serum or plasma alkaline phosphatase measurement (enzymatic activity/volume) 54 U/L 40-136 Serum or plasma aspartate aminotransferase measurement (enzymatic activity/volume) 18 U/L 5-34 Serum or plasma alanine aminotransferase measurement (enzymatic activity/volume) 14 U/L 0-55 Serum or plasma protein measurement (mass/volume) 6.9 g/dL 6.4-8.2 Serum or plasma albumin measurement (mass/volume) 4.2 g/dL 3.2-4.5 CALCIUM CORRECTED 9.0 mg/dL 8.5-10.1 ABO+Rh group - 04/30/18 10:56 ABO+Rh group OP NRG Transfusion band number TNP NRG Complete urinalysis with reflex to culture - 04/30/18 11:00 Urine color determination YELLOW NRG Urine clarity determination SLIGHTLY CLOUDY NRG Urine pH measurement by test strip 6.5 5-9 Specific gravity of urine by test strip 1.010 1.016-1.022 Urine protein assay by test strip, semi-quantitative NEGATIVE NEGATIVE Urine glucose detection by automated test strip NEGATIVE NEGATIVE Erythrocytes detection in urine sediment by light microscopy NEGATIVE NEGATIVE Urine ketones detection by automated test strip NEGATIVE NEGATIVE Urine nitrite detection by test strip NEGATIVE NEGATIVE Urine total bilirubin detection by test strip NEGATIVE NEGATIVE Urine urobilinogen measurement by automated test strip (mass/volume) NORMAL NORMAL Urine leukocyte esterase detection by dipstick 1+ NEGATIVE Automated urine sediment erythrocyte count by microscopy (number/high power field) NONE NRG Automated urine sediment leukocyte count by microscopy (number/high power field) [HPF] NRG Bacteria detection in urine sediment by light microscopy FEW NRG Squamous epithelial cells detection in urine sediment by light microscopy 10-25 NRG Crystals detection in urine sediment by light microscopy NONE NRG Casts detection in urine sediment by light microscopy NONE NRG Mucus detection in urine sediment by light microscopy NEGATIVE NRG Complete urinalysis with reflex to culture YES NRG Bacterial urine culture - 04/30/18 11:00 Bacterial urine culture SEE COMMEN NRG COLONY COUNT . NRG FREE TEXT ENTRY 3 RML SENT ABOVE REPORT 05/01 08:06 NRG Complete urinalysis with reflex to culture - 06/06/18 20:33 Urine color determination YELLOW NRG Urine clarity determination SLIGHTLY CLOUDY NRG Urine pH measurement by test strip 6 5-9 Specific gravity of urine by test strip 1.025 1.016-1.022 Urine protein assay by test strip, semi-quantitative NEGATIVE NEGATIVE Urine glucose detection by automated test strip NEGATIVE NEGATIVE Erythrocytes detection in urine sediment by light microscopy NEGATIVE NEGATIVE Urine ketones detection by automated test strip NEGATIVE NEGATIVE Urine nitrite detection by test strip NEGATIVE NEGATIVE Urine total bilirubin detection by test strip NEGATIVE NEGATIVE Urine urobilinogen measurement by automated test strip (mass/volume) NORMAL NORMAL Urine leukocyte esterase detection by dipstick 1+ NEGATIVE Automated urine sediment erythrocyte count by microscopy (number/high power field) NONE NRG Automated urine sediment leukocyte count by microscopy (number/high power field) [HPF] NRG Bacteria detection in urine sediment by light microscopy FEW NRG Squamous epithelial cells detection in urine sediment by light microscopy 10-25 NRG Crystals detection in urine sediment by light microscopy PRESENT NRG Casts detection in urine sediment by light microscopy NONE NRG Mucus detection in urine sediment by light microscopy MODERATE NRG Complete urinalysis with reflex to culture NO NRG Calcium oxalate crystals detection in urine sediment by light microscopy MODERATE NRG Bacterial urine culture - 06/06/18 20:33 Bacterial urine culture SEE REPORT NRG COLONY COUNT . NRG Complete blood count (CBC) with automated white blood cell (WBC) differential - 06/06/18 20:39 Blood leukocytes automated count (number/volume) 7.6 10*3/uL 4.3-11.0 Blood erythrocytes automated count (number/volume) 4.29 10*6/uL 4.35-5.85 Venous blood hemoglobin measurement (mass/volume) 12.6 g/dL 11.5-16.0 Blood hematocrit (volume fraction) 36 % 35-52 Automated erythrocyte mean corpuscular volume 84 [foz_us] 80-99 Automated erythrocyte mean corpuscular hemoglobin (mass per erythrocyte) 29 pg 25-34 Automated erythrocyte mean corpuscular hemoglobin concentration measurement (mass/volume) 35 g/dL 32-36 Automated erythrocyte distribution width ratio 13.7 % 10.0- 14.5 Automated blood platelet count (count/volume) 143 10*3/uL 130-400 Automated blood platelet mean volume measurement 11.5 [foz_us] 7.4-10.4 Automated blood neutrophils/100 leukocytes 64 % 42-75 Automated blood lymphocytes/100 leukocytes 26 % 12-44 Blood monocytes/100 leukocytes 9 % 0-12 Automated blood eosinophils/100 leukocytes 1 % 0-10 Automated blood basophils/100 leukocytes 0 % 0-10 Blood neutrophils automated count (number/volume) 4.9 10*3 1.8-7.8 Blood lymphocytes automated count (number/volume) 2.0 10*3 1.0-4.0 Blood monocytes automated count (number/volume) 0.7 10*3 0.0- 1.0 Automated eosinophil count 0.1 10*3/uL 0.0-0.3 Automated blood basophil count (count/volume) 0.0 10*3/uL 0.0-0.1 Comprehensive metabolic panel - 06/06/18 20:39 Serum or plasma sodium measurement (moles/volume) 140 mmol/L 135-145 Serum or plasma potassium measurement (moles/volume) 3.3 mmol/L 3.6-5.0 Serum or plasma chloride measurement (moles/volume) 108 mmol/L 98-107 Carbon dioxide 23 mmol/L 21-32 Serum or plasma anion gap determination (moles/volume) 9 mmol/L 5-14 Serum or plasma urea nitrogen measurement (mass/volume) 7 mg/dL 7-18 Serum or plasma creatinine measurement (mass/volume) 0.64 mg/dL 0.60-1.30 Serum or plasma urea nitrogen/creatinine mass ratio 11 NRG Serum or plasma creatinine measurement with calculation of estimated glomerular filtration rate > NRG Serum or plasma glucose measurement (mass/volume) 83 mg/dL 70-105 Serum or plasma calcium measurement (mass/volume) 9.2 mg/dL 8.5-10.1 Serum or plasma total bilirubin measurement (mass/volume) 0.3 mg/dL 0.1-1.0 Serum or plasma alkaline phosphatase measurement (enzymatic activity/volume) 50 U/L 40-136 Serum or plasma aspartate aminotransferase measurement (enzymatic activity/volume) 18 U/L 5-34 Serum or plasma alanine aminotransferase measurement (enzymatic activity/volume) 8 U/L 0-55 Serum or plasma protein measurement (mass/volume) 6.3 g/dL 6.4-8.2 Serum or plasma albumin measurement (mass/volume) 3.8 g/dL 3.2-4.5 CALCIUM CORRECTED 9.4 mg/dL 8.5-10.1 Serum or plasma choriogonadotropin measurement (units/volume) - 06/06/18 20:39 Serum or plasma choriogonadotropin measurement (units/volume) 8741 m[iU]/mL <5 Influenza virus A and B antigen detection - 06/06/18 20:39 FLU RESULT NEGATIVE FOR INFLUENZA A AND B ANTIGENS BY IA NRG Complete urinalysis with reflex to culture - 07/10/18 18:50 Urine color determination YELLOW NRG Urine clarity determination SLIGHTLY CLOUDY NRG Urine pH measurement by test strip 5 5-9 Specific gravity of urine by test strip 1.025 1.016-1.022 Urine protein assay by test strip, semi-quantitative NEGATIVE NEGATIVE Urine glucose detection by automated test strip NEGATIVE NEGATIVE Erythrocytes detection in urine sediment by light microscopy NEGATIVE NEGATIVE Urine ketones detection by automated test strip NEGATIVE NEGATIVE Urine nitrite detection by test strip NEGATIVE NEGATIVE Urine total bilirubin detection by test strip NEGATIVE NEGATIVE Urine urobilinogen measurement by automated test strip (mass/volume) NORMAL NORMAL Urine leukocyte esterase detection by dipstick 2+ NEGATIVE Automated urine sediment erythrocyte count by microscopy (number/high power field) NONE NRG Automated urine sediment leukocyte count by microscopy (number/high power field) [HPF] NRG Bacteria detection in urine sediment by light microscopy FEW NRG Squamous epithelial cells detection in urine sediment by light microscopy >50 NRG Crystals detection in urine sediment by light microscopy NONE NRG Casts detection in urine sediment by light microscopy NONE NRG Mucus detection in urine sediment by light microscopy LARGE NRG Complete urinalysis with reflex to culture YES NRG Bacterial urine culture - 07/10/18 18:50 Bacterial urine culture 3 OR MORE NRG COLONY COUNT >100,000/ML NRG FTX;REPORTABLE (GRAM POSITIVE) SUGGESTING PROBABLE NRG FREE TEXT ENTRY 2 COLLECTION CONTAMINATION WITH SKIN KATE NRG FREE TEXT ENTRY 3 NO SUSCEPTIBILITY PERFORMED NRG Capillary blood glucose measurement by glucometer (mass/volume) - 08/31/18 08:37 Capillary blood glucose measurement by glucometer (mass/volume) 92 mg/dL 70-110 Blood type T Indirect antibody screen panel - 11/02/18 20:15 WRISTBAND NUMBER [id number] NRG ABO+Rh group OP NRG Blood group antibody screen NEGATIVE NRG Complete blood count (CBC) with automated white blood cell (WBC) differential - 11/02/18 20:25 Blood leukocytes automated count (number/volume) 8.0 10*3/uL 4.3-11.0 Blood erythrocytes automated count (number/volume) 4.17 10*6/uL 4.35-5.85 Venous blood hemoglobin measurement (mass/volume) 10.0 g/dL 11.5-16.0 Blood hematocrit (volume fraction) 32 % 35-52 Automated erythrocyte mean corpuscular volume 77 [foz_us] 80-99 Automated erythrocyte mean corpuscular hemoglobin (mass per erythrocyte) 24 pg 25-34 Automated erythrocyte mean corpuscular hemoglobin concentration measurement (mass/volume) 31 g/dL 32-36 Automated erythrocyte distribution width ratio 16.0 % 10.0- 14.5 Automated blood platelet count (count/volume) 139 10*3/uL 130-400 Automated blood platelet mean volume measurement 11.3 [foz_us] 7.4-10.4 Automated blood neutrophils/100 leukocytes 76 % 42-75 Automated blood lymphocytes/100 leukocytes 15 % 12-44 Blood monocytes/100 leukocytes 8 % 0-12 Automated blood eosinophils/100 leukocytes 1 % 0-10 Automated blood basophils/100 leukocytes 0 % 0-10 Blood neutrophils automated count (number/volume) 6.1 10*3 1.8-7.8 Blood lymphocytes automated count (number/volume) 1.2 10*3 1.0-4.0 Blood monocytes automated count (number/volume) 0.7 10*3 0.0- 1.0 Automated eosinophil count 0.1 10*3/uL 0.0-0.3 Automated blood basophil count (count/volume) 0.0 10*3/uL 0.0-0.1 Encounters ACCT No. Visit Date/Time Discharge Status Pt. Type Provider Facility Loc./Unit Complaint [id number] 10/31/2018 00:07:00 10/31/2018 01:34:00 DIS Outpatient DENNY HURD DO [facility] WSo NOT FEELING ANY BABY MOVEMENT [id number] 10/22/2018 14:34:00 10/22/2018 15:00:00 DIS Outpatient DENNY HURD DO [facility] WSo DECREASED MOVEMENT [id number] 08/31/2018 08:21:00 08/31/2018 23:59:59 CLS Outpatient KOLTON WHEATLEY DO [facility] LAB IMPAIRED GLUCOSE TOLERANCE [id number] 08/05/2018 17:48:00 08/05/2018 21:55:00 DIS Outpatient DENNY HURD DO E [facility] WSo DEHYDRATION [id number] 07/10/2018 18:34:00 07/10/2018 21:42:00 DIS Outpatient DENNY HURD DO E [facility] WSo CONTRACTIONS [id number] 06/23/2018 10:08:00 06/23/2018 23:59:59 CLS Outpatient DIONI BROOKSKOLTON [facility] RAD FETUS PRESENT DURING 2ND TRIMESTER [id number] 06/06/2018 20:16:00 06/06/2018 21:40:00 DIS Emergency ALISSA HURTADO DO [facility] ER CRAMPING/BLEEDING,ANXIETY ATTACK,18 WEEKS [id number] 04/30/2018 10:03:00 04/30/2018 12:37:00 DIS Emergency JAMMIE LOPEZ [facility] ER 13 WKS PREG/CRAMPING/BLEEDING [id number] 03/21/2018 19:43:00 03/21/2018 20:57:00 DIS Emergency FRANCESCA CORONA APRN [facility] ER MIGRAINE,VOMITTING [id number] 03/09/2018 18:26:00 03/09/2018 19:38:00 DIS Emergency LEE BORDEN MD [facility] ER ABD PAIN, [id number] 11/24/2017 14:27:00 11/24/2017 15:57:00 DIS Emergency JAMMIE LOPEZ [facility] ER ABD PAIN/MISCARRIED 3 WKS AGO [id number] 08/15/2017 20:59:00 08/15/2017 23:28:00 DIS Emergency DEVI CASTELLON [facility] ER ABD PAIN AFTER MISCARRIAGE [id number] 07/31/2017 20:33:00 07/31/2017 23:08:00 DIS Emergency ANA MARTINEZ [facility] ER RIGHT SIDE ABDOMEN PAIN [id number] 05/27/2017 17:47:00 05/27/2017 23:59:59 CLS Outpatient KAREL MORALES [facility] LABNPT [id number] 11/02/2018 21:03:00 Document Registration
[2018-11-03] MEDS ORDERED: BUTORPHANOL INJ 2 MG/ML (STADOL) VIAL IV ONE (03:45)
[2018-11-03] MEDS ORDERED: SUFENTA 0.6MCG/ML BUPIVA 0.125 100 ML ONE (04:31)
[2018-11-03] MEDS ORDERED: ONDANSETRON 4 MG/2 ML (SDV) Z0FRAN ONE (04:47)
[2018-11-03] MEDS: ONDANSETRON 4 MG/2 ML (SDV) Z0FRAN IV PRN ×2 (04:57→11:07)
[2018-11-03] MEDS: D5 LR IV SOLUTION 1,000 ML IV SCH (05:00)
[2018-11-03] MEDS ORDERED: fentaNYL INJECTION 100 MCG/2 ML AMP ONE (05:20)
[2018-11-03] MEDS ORDERED: LACTATED RINGERS 1,000 ML IV ONE (07:09)
[2018-11-03] MEDS ORDERED: NALOXONE 0.4 MG/ML 1 ML (NARCAN) VIAL IV PRN (07:15)
[2018-11-03] MEDS ORDERED: EPIDURAL (SUFENTA 0.6MCG/ML BUPIVA 0.125%) 100 ML BAG EPI SCH (07:15)
[2018-11-03] MEDS ORDERED: CATHETER FLUSH 10 ML SYR IV PRN (07:15)
[2018-11-03] MEDS ORDERED: LIDOCAINE/EPI 2% 1:200,00 (XYLOCAINE) 10 ML VIAL ONE (09:00)
[2018-11-03] MEDS ORDERED: OXYTOCIN/NORMAL SALINE 500 ML IV ONE (09:20)
--- NOTE | 2018-11-03 09:39 | OB Labor & Delivery Record ---
Vag Delivery Note Vag Delivery Note Date of Delivery: 11/03/18 Preoperative Diagnosis: Tejinder Rojas is a 23 /Para 3/2 ,Gestational Age 39 weeks, gestational thrombocytopenia, GBS + Postoperative Diagnosis: Same Surgeon: KOLOTN WHEATLEY Anesthesia: epidural Delivery Type: vaginal Findings: Viable male , apgars pending, weight pending Lacerations: none Intact placenta with 3 vessel cord. nuchal cord x 1 reduced, no body cord or shoulder dystocia Estimated Blood Loss: 100 ml Complications: None Condition: Stable Description of Procedure: The patient is a 23 year old female who presented for induction of labor at 39 weeks for gestational thrombocytopenia. She was admitted and informed consent was obtained. Her labor course was remarkable for misoprostol x 2 doses, ampicillin x 2 doses, AROM. She progressed to complete dilatation and began to push. She was 6 cm at 0900 with AROM clear fluid and she delivered at 0924 She was then set up for delivery. The 's head was delivered atraumatically in the STEPHAN position. The shoulders and remainder of the infant's body were then delivered without difficulty. Upon delivery, the head was held below the level of the perineum and the mouth and nares were bulb suctioned. The cord was doubly clamped and cut and the was handed off to the pediatric staff. An intact placenta with 3-vessel cord delivered via Afshin and there was found to be minimal bleeding.~ Vigorous fundal massage was performed and the fundus was found to be firm. IV oxytocin was given. Examination of the vagina and perineum revealed no laceration. Following the delivery, sponge, instrument and needle counts were correct. Mom and baby were both in stable condition in the labor suite. Vitals - Labs Vital Signs - I&O Vital Signs Date Time Temp Pulse Resp B/P (MAP) Pulse Ox O2 Delivery O2 Flow Rate FiO2 11/03/18 07:00 67 18 113/56 (75) 98 Room Air 11/03/18 06:45 98.7 57 18 116/59 (78) 98 Room Air 11/03/18 06:30 60 18 112/61 (78) 98 Room Air 11/03/18 06:15 53 18 106/56 (73) 98 Room Air 11/03/18 06:00 73 18 112/59 (76) 100 Room Air 11/03/18 05:55 81 18 134/60 (84) 100 Room Air 11/03/18 05:50 64 18 115/58 (77) 100 Room Air 11/03/18 05:45 62 18 117/60 (79) 100 Room Air 11/03/18 05:40 73 18 112/57 (75) 100 Room Air 11/03/18 05:37 80 18 112/55 (74) 100 Room Air 11/03/18 05:34 65 18 120/61 (80) 100 Room Air 11/03/18 05:31 78 18 118/61 (80) 100 Room Air 11/03/18 05:28 64 18 114/56 (75) Room Air 11/03/18 05:00 67 18 121/56 (77) 100 Room Air 11/03/18 04:00 62 18 115/64 (81) 100 Room Air 11/03/18 03:00 59 18 105/52 (69) 100 Room Air 11/03/18 02:00 66 18 102/52 (69) 100 Room Air 11/03/18 01:00 64 18 108/52 (70) 100 Room Air 11/03/18 00:00 66 18 122/61 (81) 100 Room Air 11/02/18 23:00 66 18 122/61 (81) 100 Room Air 11/02/18 22:00 70 18 111/66 (81) 99 Room Air 11/02/18 21:00 98.8 88 18 122/65 (84) I & O 11/03/18 07:00 Intake Total 500 ml Balance 500 ml Labs Laboratory Tests 11/02/18 20:25: White Blood Count 8.0, Red Blood Count 4.17L, Hemoglobin 10.0L, Hematocrit 32L, Mean Corpuscular Volume 77L, Mean Corpuscular Hemoglobin 24L, Mean Corpuscular Hemoglobin Concent 31L, Red Cell Distribution Width 16.0H, Platelet Count 139, Mean Platelet Volume 11.3H, Neutrophils (%) (Auto) 76H, Lymphocytes (%) (Auto) 15, Monocytes (%) (Auto) 8, Eosinophils (%) (Auto) 1, Basophils (%) (Auto) 0, Neutrophils # (Auto) 6.1, Lymphocytes # (Auto) 1.2, Monocytes # (Auto) 0.7, Eosinophils # (Auto) 0.1, Basophils # (Auto) 0.0 KOLTON WHEATLEY DO Nov 03, 2018 09:39
[2018-11-03] MEDS ORDERED: OXYTOCIN/NORMAL SALINE 500 ML IV SCH (09:40)
[2018-11-03] MEDS ORDERED: MEASLES,MUMPS,RUBELLA 1 EA INJ SQ ONE (09:45)
[2018-11-03] MEDS ORDERED: BENZOCAINE/MENTHOL (DERMOPLAST) 56 ML CAN TP PRN (09:45)
[2018-11-03] MEDS ORDERED: TETANUS,DIPTH,PERTUSS P/F (BOOSTRIX) 0.5 ML VIAL IM ONE (09:45)
[2018-11-03] MEDS ORDERED: WITCH HAZEL(TUCKS) 40 EA JAR TOP PRN (09:45)
--- NOTE | 2018-11-03 11:20 | NUR ---
Pt assisted up to bathroom via ambulation without difficulty, +void. Pericare demonstrated. Fresh gown on. Pt assisted to wheelchair and taken to room 310 accompanied by RN, S.O., and . All personal belongings moved to new room at this time. Pt oriented to room and call light, packet and room service explained. Pt denies needs or concerns at this time
[2018-11-03] MEDS: IBUPROFEN 600 MG (MOTRIN) TAB PO SCH ×2 (12:18→20:23)
[2018-11-03] MEDS: ACETAMINOPHEN 500 MG TAB (TYLENOL) PO SCH ×2 (12:19→20:23)
--- NOTE | 2018-11-03 12:21 | NUR ---
Pt c/o significant migraine. Tylenol and motrin given. Pt reports tylenol and ibuprofen rarely help with migraines. Pt also reports not eating since yesterday morning. Encourage pt to try eating as migraine could be from hunger and exhaustion. Dr. Correa called and notifed of pt c/o migraine and report of medications not working. Order rec'd for oxycodone 5mg q6hrs.
--- NOTE | 2018-11-03 12:39 | NUR ---
Pt called RN to room. After medications given, pt immediately threw up. Dr. Correa called and notified. Order for toradol 30mg one time and zofran 8mg q8 if needed
[2018-11-03] MEDS ORDERED: ONDANSETRON 4 MG/2 ML (SDV) Z0FRAN IVP PRN (12:45)
[2018-11-03] MEDS ORDERED: KETOROLAC 30 MG/ML VIAL IVP ONE (12:45)
[2018-11-03] MEDS ORDERED: CATHETER FLUSH 10 ML SYR IV SCH (14:00)
[2018-11-03] MEDS: DOCUSATE SODIUM 100 MG (COLACE) CAP PO SCH (20:23)
--- NOTE | 2018-11-03 21:00 | NUR ---
pt resting in bed. family at bedside. pt denies any needs at this time. will continue to monitor.
[2018-11-04 01:00] VITALS: BP 113/64
[2018-11-04] MEDS: IBUPROFEN 600 MG (MOTRIN) TAB PO SCH ×4 (02:04→20:03)
[2018-11-04] MEDS: ACETAMINOPHEN 500 MG TAB (TYLENOL) PO SCH ×3 (03:37→20:05)
[2018-11-04 05:27] VITALS: BP 115/70
[2018-11-04 06:15] LABS: BASOPHILS % (AUTO) 0 % (0-10); EOSINOPHILS # (AUTO) 0.1 10^3/uL (0.0-0.3); EOSINOPHILS % (AUTO) 1 % (0-10); HEMATOCRIT 28 % (35-52); HEMOGLOBIN 8.8 G/DL (11.5-16.0); LYMPHOCYTES # (AUTO) 1.8 X 10^3 (1.0-4.0); LYMPHOCYTES % (AUTO) 19 % (12-44); MEAN CORPUSCULAR HEMOGLOBIN 24 PG (25-34); MEAN CORPUSCULAR HGB CONC 31 G/DL (32-36); MEAN CORPUSCULAR VOLUME 78 FL (80-99); MEAN PLATELET VOLUME 11.3 FL (7.4-10.4); MONOCYTES % (AUTO) 10 % (0-12); NEUTROPHILS # (AUTO) 6.7 X 10^3 (1.8-7.8); NEUTROPHILS % (AUTO) 70 % (42-75); PLATELET COUNT 108 10^3/uL (130-400); WHITE BLOOD COUNT 9.6 10^3/uL (4.3-11.0)
[2018-11-04] MEDS: FERROUS SULF 325 MG (IRON) TAB PO SCH (08:08)
[2018-11-04] MEDS: PRENATAL VITAMIN 1 EA TAB PO SCH (08:08)
[2018-11-04] MEDS: DOCUSATE SODIUM 100 MG (COLACE) CAP PO SCH ×2 (08:08→20:03)
[2018-11-04 08:12] VITALS: BP 106/62
--- NOTE | 2018-11-04 08:15 | NUR ---
PT IN BED, S/O AT THE BEDSIDE. MEDS GIVEN PO; SEE EMAR FOR FURTHER. VS OBTAINED. INITIAL SHIFT ASSESSMENT COMPLETED; SEE INTERVENTION FOR FURTHER. MORE BABY WIPES PROVIDED PER REQUEST. NO FURTHER NEEDS VOICED, CALL LIGHT WITHIN REACH.
--- NOTE | 2018-11-04 11:06 | NUR ---
PT IN BED, HOLDING , S/O AT THE BEDSIDE. BREAST MILK FROM NURS[facility]ID[facility] PROVIDED PER REQUEST.
--- NOTE | 2018-11-04 11:48 | Postpartum Progress Note ---
Note Note Day # 1 s/p Subjective: Patient is without complaints. Ambulating, voiding. Tolerating a regular diet w ithout nausea or vomiting. Normal lochia. Pain is well controlled with oral pain medications. breast feeding. Objective: 11/04/18 11/04/18 11/04/18 01:00 05:27 08:12 Temp 97.4 97.8 97.1 Pulse 65 62 59 Resp 18 18 18 B/P (MAP) 113/64 (80) 115/70 (85) 106/62 (77) Pulse Ox 98 98 O2 Delivery Room Air Room Air Room Air Laboratory Tests Test 11/02/18 01:40 11/02/18 20:25 11/04/18 06:00 Range/Units Urine Color YELLOW Urine Clarity SL CLOUDY Urine pH 8 5-9 Urine Specific [place] 1.010 L 1.016-1.022 Urine Protein NEGATIVE NEGATIVE Urine Glucose (UA) NEGATIVE NEGATIVE Urine Ketones NEGATIVE NEGATIVE Urine Nitrite NEGATIVE NEGATIVE Urine Bilirubin NEGATIVE NEGATIVE Urine Urobilinogen NORMAL NORMAL MG/DL Urine Leukocyte Esterase 3+ H NEGATIVE Urine RBC (Auto) 5+ H NEGATIVE Urine RBC >100 H /HPF Urine WBC 10-25 H /HPF Urine Squamous Epithelial Cells 10-25 H /HPF Urine Crystals NONE /LPF Urine Bacteria FEW H /HPF Urine Casts NONE /LPF Urine Mucus SMALL H /LPF Urine Culture Indicated CULTURE PENDING White Blood Count 8.0 9.6 4.3-11.0 10^3/uL Red Blood Count 4.17 L 3.63 L 4.35-5.85 10^6/uL Hemoglobin 10.0 L 8.8 L 11.5-16.0 G/DL Hematocrit 32 L 28 L 35-52 % Mean Corpuscular Volume 77 L 78 L 80-99 FL Mean Corpuscular Hemoglobin 24 L 24 L 25-34 PG Mean Corpuscular Hemoglobin Concent 31 L 31 L 32-36 G/DL Red Cell Distribution Width 16.0 H 16.0 H 10.0-14.5 % Platelet Count 139 108 L 130-400 10^3/uL Mean Platelet Volume 11.3 H 11.3 H 7.4-10.4 FL Neutrophils (%) (Auto) 76 H 70 42-75 % Lymphocytes (%) (Auto) 15 19 12-44 % Monocytes (%) (Auto) 8 10 0-12 % Eosinophils (%) (Auto) 1 1 0-10 % Basophils (%) (Auto) 0 0 0-10 % Neutrophils # (Auto) 6.1 6.7 1.8-7.8 X 10^3 Lymphocytes # (Auto) 1.2 1.8 1.0-4.0 X 10^3 Monocytes # (Auto) 0.7 1.0 0.0-1.0 X 10^3 Eosinophils # (Auto) 0.1 0.1 0.0-0.3 10^3/uL Basophils # (Auto) 0.0 0.0 0.0-0.1 10^3/uL Physical Exam: General - Alert and oriented, no apparent distress Abdomen - Soft, appropriately tender to palpation, non-distended, fundus firm at umbilicus Extremities - no edema, negative Vamshi's bilaterally Assessment: 1. post- day # 1, status post spont vaginal delivery. Recovering well, hemodynamically stable 2. thrombocytopenia - expected drop in plts, no spontaneous bleeding. repeat in 2 weeks 3. acute blood loss anemia and antepartum anemia Plan: Routine care. Encourage breast feeding. Encourage ambulation. Ferrous sulfate supplementation. Plan for discharge Vitals - Labs Vital Signs - I&O Vital Signs Date Time Temp Pulse Resp B/P (MAP) Pulse Ox O2 Delivery O2 Flow Rate FiO2 11/04/18 08:12 97.1 59 18 106/62 (77) 98 Room Air 11/04/18 05:27 97.8 62 18 115/70 (85) Room Air 11/04/18 01:00 97.4 65 18 113/64 (80) 98 Room Air 11/03/18 21:00 98.1 69 18 119/60 (79) 98 Room Air 11/03/18 17:00 98.4 70 18 115/71 (86) 98 Room Air 11/03/18 13:40 98.1 76 20 113/56 (75) 97 Room Air I & O 11/04/18 07:00 Intake Total 1000 ml Balance 1000 ml Labs Laboratory Tests 11/04/18 06:00: White Blood Count 9.6, Red Blood Count 3.63L, Hemoglobin 8.8L, Hematocrit 28L, Mean Corpuscular Volume 78L, Mean Corpuscular Hemoglobin 24L, Mean Corpuscular Hemoglobin Concent 31L, Red Cell Distribution Width 16.0H, Platelet Count 108L, Mean Platelet Volume 11.3H, Neutrophils (%) (Auto) 70, Lymphocytes (%) (Auto) 19, Monocytes (%) (Auto) 10, Eosinophils (%) (Auto) 1, Basophils (%) (Auto) 0, Neutrophils # (Auto) 6.7, Lymphocytes # (Auto) 1.8, Monocytes # (Auto) 1.0, Eosinophils # (Auto) 0.1, Basophils # (Auto) 0.0 Microbiology 11/02/18 Urine Culture - Final, Complete YEAST KOLTON WHEATLEY DO Nov 04, 2018 11:48
--- NOTE | 2018-11-04 11:52 | Discharge Inst-Women's Service ---
Discharge Inst-Women's Serv Depart Medication/Instructions New, Converted or Re-Newed RX: Transmitted to Pharmacy Final Diagnosis gestational thrombocytopenia gbs positive induction of labor epidural vaginal delivery Problems Reviewed?: Yes Consults/Follow Up Additional Follow Up: Yes Activity Activity: Activity as Tolerated Driving Instructions: You May Drive NO SMOKING: NO SMOKING Nothing Inside Vagina: No Douching, No [place], No Tampons Diet Discharge Diet: No Restrictions Symptoms to Report to : Swelling Increased, Bleeding Excessive, Pain Increased, Vaginal Bleeding Increase, Cramps in Feet or Legs, Vaginal Discharge Foul For Any Problems or Questions: Contact Your Physician KOLTON WHEATLEY DO Nov 04, 2018 11:52
[2018-11-04] MEDS ORDERED: ACET-77 PO (11:55)
[2018-11-04] MEDS ORDERED: FERR325T18 PO (11:55)
[2018-11-04] MEDS ORDERED: IBUP-844 PO (11:55)
--- NOTE | 2018-11-04 12:10 | NUR ---
PT IN BED, TEARFUL, JUST HAD CIRC AND IS BEING FUSSY. S/O AT THE BEDSIDE. SCHEDULED TYLENOL GIVEN PO; SEE EMAR FOR FURTHER. NO NEEDS VOICED AT THIS TIME.
--- NOTE | 2018-11-04 12:21 | NUR ---
DR. WHEATLEY TO PT'S BEDSIDE.
[2018-11-04 14:40] VITALS: BP 111/64
--- NOTE | 2018-11-04 14:45 | NUR ---
PT RESTING IN BED. ROUTINE MOTRIN GIVEN PO; SEE EMAR FOR FURTHER. VS OBTAINED. S/O AT THE BEDSIDE. NO NEEDS VOICED.
--- NOTE | 2018-11-04 18:11 | NUR ---
PT SLEEPING, S/O RESTING AT THE BEDSIDE.
[2018-11-04 20:20] VITALS: BP 110/65
--- NOTE | 2018-11-04 20:20 | NUR ---
pt sitting up in bed. s/o at bedside. assessment completed. pt requesting pads. pink pads provided. ice water refilled. pt denies any further needs will continue to monitor.
[2018-11-04] MEDS ORDERED: SERTRALINE 50 MG (ZOLOFT) TABLET PO SCH (21:00)
[2018-11-05 01:41] VITALS: BP 112/63
[2018-11-05] MEDS: IBUPROFEN 600 MG (MOTRIN) TAB PO SCH ×2 (01:41→08:06)
[2018-11-05] MEDS: ACETAMINOPHEN 500 MG TAB (TYLENOL) PO SCH ×2 (04:30→12:18)
[2018-11-05] MEDS: PRENATAL VITAMIN 1 EA TAB PO SCH (08:05)
[2018-11-05] MEDS: FERROUS SULF 325 MG (IRON) TAB PO SCH (08:05)
[2018-11-05] MEDS: DOCUSATE SODIUM 100 MG (COLACE) CAP PO SCH (08:05)
[2018-11-05 08:06] VITALS: BP 108/70
--- NOTE | 2018-11-05 08:10 | NUR ---
PT IN BED, CHANGING 'S DIAPER. PAIN MEDICATION REQUESTED. MEDS GIVEN PO; SEE EMAR FOR FURTHER. VS OBTAINED. INITIAL SHIFT ASSESSMENT COMPLETED; SEE INTERVENTION FOR FURTHER. FRESH ICE WATER PROVIDED. PT DENIES ANY FURTHER NEEDS AT THIS TIME. CALL LIGHT WITHIN REACH.
--- NOTE | 2018-11-05 08:17 | NUR ---
S/O TAKING BREAKFAST INTO ROOM.
[2018-11-05] MEDS ORDERED: FLUC150T PO (10:55)
--- NOTE | 2018-11-05 11:03 | Progress Note ---
Progress Note Assessment/Plan Date Seen by Provider: Nov 05, 2018 Time Seen by Provider: 10:55 Events since last exam patient doing well pp but very tearful. have restarted zoloft post but will consider increase. Will see her for post exam soon after delivery Assessment/Plan pp day 2 s/p gestational thrombocytopenia - stable anemia - stable history of anxiety and depression with concern for pp depression Vitals Last set of Vitals Signs Vital Signs Date Time Temp Pulse Resp B/P (MAP) Pulse Ox O2 Delivery O2 Flow Rate FiO2 11/05/18 08:06 98.1 62 18 108/70 (83) 99 Room Air Labs Microbiology 11/02/18 Urine Culture - Final, Complete YEAST Focused Exam Respiratory: Chest Non Tender, Lungs Clear Clinical Quality Measures DVT/VTE Risk/Contraindication: Risk Factor Score Per Nursin RFS Level Per Nursing on Admit: 1=Low/No VTE PPX KOLTON WHETALEY DO Nov 05, 2018 11:03
--- NOTE | 2018-11-05 11:10 | NUR ---
DR. WHEATLEY TO PT'S BEDSIDE.
--- NOTE | 2018-11-05 11:25 | NUR ---
PT IN BED, PT'S MOTHER AT THE BEDSIDE. NO NEEDS VOICED, PREPPING TO GIVE DISCHARGE PAPERS.
--- NOTE | 2018-11-05 11:47 | NUR ---
DISCHARGE PAPERS PROVIDED AND REVIEWED WITH PT, PT VERBALIZES UNDERSTANDING. QUESTIONS ANSWERED. PT'S MOTHER PRESENT, HOLDING INFANT. NO FURTHER QUESTIONS OR NEEDS VOICED. PAPER SIGNED.
--- NOTE | 2018-11-05 12:00 | Anesthesia-Regional Post-Op ---
Regional Patient Condition Mental Status: Alert, Oriented x3 Circulation: Same as Pre-Op Headache: Absent Sensation: Full Recovery Motor Block: Absent Post Op Complications Complications None Follow Up Care/Instructions Patient Instructions None needed. Anesthesia/Patient Condition Patient is doing well, no complaints, stable vital signs, no apparent adverse anesthesia problems. No complications reported per nursing. SADIE ALVAREZ CRNA Nov 05, 2018 12:00
--- NOTE | 2018-11-05 12:18 | NUR ---
VISITORS AND S/O PRESENT. NURSERY RN REVIEWING INFANT DISCHARGE INSTRUCTIONS. SCHEDULED TYLENOL GIVEN PO; SEE EMAR FOR FURTHER. NO NEEDS VOICED AT THIS TIME.
--- NOTE | 2018-11-05 12:40 | NUR ---
PT DISCHARGED FROM -309 TO [facility]IA AMBULATORY IN STABLE CONDITION ACC BY THIS RN, S/O AND VISITORS.
== END 2018-11-05 12:40 | disposition home or self-care (01) | DRG 806 ==
LOC: LDRP 19:50
PROVIDERS: ADMIT Obstetrics & Gynecology; ATTEND Obstetrics & Gynecology
PROC: 3E0DXGC Introduction of Other Therapeutic Substance into Mouth and Pharynx, External Approach (ICD-10-PCS; 2018-11-02)
PROC: 10E0XZZ Delivery of Products of Conception, External Approach (ICD-10-PCS; principal; 2018-11-03)
DX: O46.003 Antepartum hemorrhage with coagulation defect, unspecified, third trimester (principal); O99.824 Streptococcus B carrier state complicating childbirth; O69.81X0 Labor and delivery complicated by cord around neck, without compression, not applicable or unspecified; O90.81 Anemia of the puerperium; D62 Acute posthemorrhagic anemia; O99.344 Other mental disorders complicating childbirth; F41.9 Anxiety disorder, unspecified; F32.9 Major depressive disorder, single episode, unspecified; Z37.0 Single live birth; Z3A.39 39 weeks gestation of pregnancy
CPT/HCPCS: 36415; 81000; 85025; 86850; 86900; 86901; 87088

== ENCOUNTER 2019-02-05 13:58 | Outpatient (CLI) | payer MEDICAID ==
[~2019-02-05] VITALS: Ht 160 cm; Wt 68.9 kg
[~2019-02-05 13:58] MED LIST changes: +ACET-77 PO; +FERR325T18 PO; +FLUC150T PO; +IBUP-844 PO
[2019-02-05 14:06] VITALS: BP 131/60
[2019-02-05 14:39] LABS: BASOPHILS % (AUTO) 1 % (0-10); EOSINOPHILS # (AUTO) 0.1 10^3/uL (0.0-0.3); EOSINOPHILS % (AUTO) 2 % (0-10); HEMATOCRIT 36 % (35-52); HEMOGLOBIN 12.1 G/DL (11.5-16.0); LYMPHOCYTES # (AUTO) 1.4 X 10^3 (1.0-4.0); LYMPHOCYTES % (AUTO) 33 % (12-44); MEAN CORPUSCULAR HEMOGLOBIN 28 PG (25-34); MEAN CORPUSCULAR HGB CONC 33 G/DL (32-36); MEAN CORPUSCULAR VOLUME 83 FL (80-99); MEAN PLATELET VOLUME 11.9 FL (7.4-10.4); MONOCYTES # (AUTO) 0.4 X 10^3 (0.0-1.0); MONOCYTES % (AUTO) 8 % (0-12); NEUTROPHILS # (AUTO) 2.4 X 10^3 (1.8-7.8); NEUTROPHILS % (AUTO) 57 % (42-75); PLATELET COUNT 165 10^3/uL (130-400); RED CELL DISTRIBUTION WIDTH 16.9 % (10.0-14.5); WHITE BLOOD COUNT 4.2 10^3/uL (4.3-11.0)
[2019-02-05 14:40] LABS: BILIRUBIN,URINE NEGATIVE (NEGATIVE); CLARITY,URINE CLEAR; COLOR,URINE YELLOW; GLUCOSE, URINE (UA) NEGATIVE (NEGATIVE); KETONES,URINE TRACE (NEGATIVE); LEUKOCYTE ESTERASE ,URINE NEGATIVE (NEGATIVE); NITRITE,URINE NEGATIVE (NEGATIVE); PH,URINE 5.5 (5-9); PROTEIN,URINE NEGATIVE (NEGATIVE)
[2019-02-05] MEDS ORDERED: FLUO10CA19 PO (14:40)
[2019-02-05 14:52] LABS: BACTERIA,URINE NEGATIVE /HPF; RBC,URINE RARE /HPF; WBC,URINE RARE /HPF
== END 2019-02-05 14:30 | disposition home or self-care (01) ==
LOC: PREOP 13:58
PROVIDERS: ATTEND Obstetrics & Gynecology
DX: N87.1 Moderate cervical dysplasia (principal); N81.89 Other female genital prolapse
CPT/HCPCS: 36415; 81000; 85025; 86850; 86900; 86901; 87081

== ENCOUNTER 2019-02-16 16:23 | Emergency (ER) | payer MEDICAID ==
[~2019-02-16] VITALS: Ht 160 cm; Wt 66.8 kg
[~2019-02-16 16:23] MED LIST changes: +FLUO10CA19 PO; +OXC5T PO
[2019-02-16 17:00] VITALS: BP 113/62
--- NOTE | 2019-02-16 17:01 | ED General ---
General Chief Complaint: Post OP Complications/Pain Stated Complaint: POST OP WOUND BLEEDING - STOMACH Nursing Triage Note: ROBOTIC HSYSTER ON TUESDAY. STATES INCISION IS BLEEDING. DR WHEATLEY OUT OF THE OFFICE. 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 Nursing Sepsis Screen: No Definite Risk History of Present Illness Date Seen by Provider: Feb 16, 2019 Time Seen by Provider: 16:54 Initial Comments 23-year-old female presents because she has some very mild bleeding over laparoscopic incision. She reports that she had a robotic hysterectomy 3 days ago. That she took the dressing off this morning and noticed some very small amount of bleeding. Her OB is out of the office so she came to the ER. Patient did not complain of any other symptoms to me. Allergies and Home Medications Allergies Coded Allergies: No Known Drug Allergies (Unverified , 10/31/18) Home Medications Acetaminophen 500 Mg Tablet, 1,000 MG PO Q8HR Prescribed by: KOLTON WHEATLEY on 02/14/19 09 Fluoxetine HCl 10 Mg Capsule, 10 MG PO HS, (Reported) Ibuprofen 600 Mg Tablet, 600 MG PO Q6HR Prescribed by: KOLTON WHEATLEY on 02/14/19915 Oxycodone Hcl 5 Mg Tab, 5 MG PO Q4HR PRN for pain Prescribed by: KOLTON WHEATLEY on 02/14/19915 Patient Home Medication List Home Medication List Reviewed: Yes Review of Systems Review of Systems Constitutional: No chills, No fever Respiratory: no symptoms reported Cardiovascular: no symptoms reported Gastrointestinal: no symptoms reported Skin: see HPI Psychiatric/Neurological: No Symptoms Reported Past [id number] Hx Past Med/Social Hx: Reviewed Nursing Past Med/Soc Hx Patient Social History Alcohol Use: Denies Use Recreational Drug Use: No Smoking Status: Current Someday Smoker Type Used: Cigarettes 2nd Hand Smoke Exposure: No Recent Foreign Travel: No Contact w/Someone Who Travel: No Recent Infectious Disease Expo: No Recent Hopitalizations: No Immunizations Up To Date Tetanus Booster (TDap): Unknown PED Vaccines UTD: Yes Date of Influenza Vaccine: Dec 26, 2018 Seasonal Allergies Seasonal Allergies: No Past Medical History Surgeries: Yes (ear pinned backed) Hysterectomy Respiratory: No Cardiac: No Neurological: Yes Headaches /Migraines Reproductive Disorders: No Female Reproductive Disorders: Denies Genitourinary: No Gastrointestinal: No Musculoskeletal: No Endocrine: No HEENT: No Cancer: No Psychosocial: No Anxiety, Depression Integumentary: No Blood Disorders: No Adverse Reaction/Blood Tranf: No Family Medical History Asthma G8 BROTHER No Pertinent Family Hx Physical Exam Vital Signs Vital Signs - First Documented 02/16/19 16:35 Temp 36.8 Pulse 84 Resp 18 B/P (MAP) 84/56 (65) Pulse Ox 97 O2 Delivery Room Air Capillary Refill : Less Than 3 Seconds Height, Weight, BMI Height: 5'3.00" Weight: 170lbs. 6.0oz. 77.292230pl; 26.00 BMI Method:Stated General Appearance: No Apparent Distress, WD/WN HEENT: PERRL/EOMI Respiratory: Chest Non Tender, Lungs Clear Cardiovascular: Regular Rate, Rhythm, Normal Peripheral Pulses Gastrointestinal: Non Tender, Soft Extremity: Normal Capillary Refill, Normal Inspection Neurologic/Psychiatric: Alert, Oriented x3 Skin: Other (patient with 3 laparoscopy incisions, one above the umbilical us has a very minor abrasion of bilateral the incision has some slight bleeding. The incisions themselves are clean dry and intact with. Liquid adhesive over it.) Progress/Results/Core Measures Suspected Sepsis Recent Fever Within 48 Hours: No Infection Criteria Present: None New/Unexplained Altered Menta: No Sepsis Screen: No Definite Risk SIRS Temperature: Pulse: 84 Respiratory Rate: 18 Blood Pressure 84 /56 Mean: 65 Results/Orders Vital Signs/I&O 02/16/19 16:35 Temp 36.8 Pulse 84 Resp 18 B/P (MAP) 84/56 (65) Pulse Ox 97 O2 Delivery Room Air Capillary Refill : Less Than 3 Seconds Blood Pressure Mean: 65 POS Departure Impression Primary Impression: Abrasion Additional Impression: Encounter for postoperative wound check Disposition: 01 HOME, SELF-CARE Condition: Stable Departure-Patient Inst. Referrals: KOLTON WHEATLEY DO (PCP/Family) Primary Care Physician Patient Instructions: Skin Abrasions (DC), Wound Care AFSHIN HATHAWAY DO Feb 16, 2019 17:01 POS
== END 2019-02-16 17:05 | disposition home or self-care (01) ==
LOC: EDUNIT# 16:23 → ER 16:24
DX: S30.811A Abrasion of abdominal wall, initial encounter (principal); L76.22 Postprocedural hemorrhage of skin and subcutaneous tissue following other procedure; G43.909 Migraine, unspecified, not intractable, without status migrainosus; F41.9 Anxiety disorder, unspecified; F32.9 Major depressive disorder, single episode, unspecified; F17.210 Nicotine dependence, cigarettes, uncomplicated; Z90.710 Acquired absence of both cervix and uterus; X58.XXXA Exposure to other specified factors, initial encounter
CPT/HCPCS: 99281

== ENCOUNTER 2019-07-16 02:09 | Emergency (ER) | payer MEDICAID ==
[~2019-07-16] VITALS: Ht 160 cm; Wt 71.2 kg
[~2019-07-16 02:09] MED LIST changes: -ACET-77 PO; +ACET-78 PO; -FLUO10CA19 PO; +FLUO10CA30 PO
--- OUTSIDE RECORDS SUMMARY | 2019-07-16 02:15 | XMS REPORT | Continuity of Care Document ---
Author Organization Unknown Address Unknown Phone Unavailable Allergies Active Description Code Type Severity Reaction Onset Reported/Identified Relationship to Patient Clinical Status Yes No Known Drug Allergies [id number] Drug Allergy Unknown N/A 10/31/2018 Medications There [...] OF NOT SPEC 07/31/2017 VAN GONSALO, KAREL ESTATE AGENT Ot N30.00 ACUTE CYSTITIS WITHOUT HEMATURIA 07/31/2017 KAREL MORALESP Ot R30.0 DYSURIA 07/31/2017 KAREL MORALES Ot Z20.2 CONTACT W AND EXPOSURE TO INFECT W A SEX 08/02/2017 ANA MARTINEZP Ot O99.89 OTH DISEASES AND CONDITIONS COMPL PREG/C 08/02/2017 ANA MARTINEZ ESTATE AGENT Ot R10.31 RIGHT LOWER QUADRANT PAIN 08/02/2017 ANA MARTINEZ ESTATE AGENT Ot Z3A.00 WEEKS OF GESTATION OF NOT [...] ENDO, NUTRITIONAL AND METAB DISEASES COM 08/17/2017 DEVI CASTELLON L Ot O99.89 OTH DISEASES AND CONDITIONS COMPL PREG/C 11/24/2017 BERNÁLVARO, JAMMIE Ot N39.0 URINARY TRACT INFECTION, SITE NOT SPECIF 11/24/2017 BERNOT, JAMMIE Ot R10.30 LOWER ABDOMINAL PAIN, UNSPECIFIED 11/24/2017 BERNSTEFANIA REAIS Ot Z87.59 PERSONAL HISTORY OF COMP OF PREG, CHLDBR 11/28/2017 BERNOT JAMMIE Ot N39.0 URINARY TRACT INFECTION, SITE NOT SPECIF 11/28/2017 BERNOT, JAMMIE Ot R10.30 LOWER ABDOMINAL PAIN, UNSPECIFIED 11/28/2017 BERNÁLVARO, JAMMIE Ot Z87.59 PERSONAL HISTORY OF COMP OF [...] CONDITIONS, FIRST 03/09/2018 LEE BORDEN MD Ot R10. 12 LEFT UPPER QUADRANT PAIN 03/09/2018 LEE BORDEN MD Ot Z3A. 01 LESS THAN 8 WEEKS GESTATION OF 03/21/2018 [...] OF DIS OF THE NERVOUS S 04/30/2018 JAMIME LOPEZ Ot G43.909 MIGRAINE, UNSP, NOT INTRACTABLE, WITHOUT 04/30/2018 JAMMIE LOPEZ Ot O20.0 THREATENED 04/30/2018 JAMMIE LOPEZ Ot O20.9 HEMORRHAGE IN EARLY , UNSPECIFI 04/30/2018 JAMMIE LOPEZ Ot O99.351 DISEASES OF THE NERVOUS SYS COMP PREGNAN 04/30/2018 JAMMIE LOPEZ Ot Z3A.13 13 WEEKS GESTATION OF 06/06/2018 GENESIS MARCOS BROOKSA K Ot F41.9 ANXIETY DISORDER, UNSPECIFIED 06/06/2018 GENESIS ALISSA K Ot G43.909 MIGRAINE, UNSP, NOT INTRACTABLE, WITHOUT 06/06/2018 GENESIS MARCOS BROOKSA K Ot O23.42 UNSP INFCT OF URINARY TRACT IN 06/06/2018 GENESIS ALISSA K Ot O99.342 OTH MENTAL DISORDERS COMP , SEC 06/06/2018 GENESIS BROOKS ALISSA K Ot O99.352 DISEASES OF THE NERVOUS SYS COMP PREGNAN 06/06/2018 GENESIS ALISSA K Ot Z3A.18 18 WEEKS GESTATION OF 06/23/2018 WHEATLEY DO, KOLTON C Ot Z36.8 9 ENCOUNTER FOR OTHER SPECIFIED 06/23/2018 WHEATLEY DO, KOLTON C Ot Z3A.2 0 20 WEEKS GESTATION OF 07/10/2018 SEALS DO, DENNY E Ot O47.0 2 FALSE LABOR BEFORE 37 COMPLETED WEEKS OF 07/10/2018 SEALS DO, DENNY E Ot Z3A.2 3 23 WEEKS GESTATION OF 07/11/2018 WHEATLEY DO, KOLTON C Ot Z36.8 9 ENCOUNTER FOR OTHER SPECIFIED 07/11/2018 WHEATLEY DO, KOLTON C Ot Z3A.2 0 20 WEEKS GESTATION OF 07/12/2018 SEALS DO, DENNY E Ot O47.0 2 FALSE LABOR BEFORE 37 COMPLETED WEEKS OF 07/12/2018 SEALS DO, DENNY E Ot Z3A.2 3 23 WEEKS GESTATION OF 08/02/2018 KAREL MORALES Ot N30.00 ACUTE CYSTITIS WITHOUT HEMATURIA 08/02/2018 KAREL MORALES Ot R30.0 DYSURIA 08/02/2018 KAREL MORALES Ot Z20.2 CONTACT W AND EXPOSURE TO INFECT W A SEX 08/02/2018 KOLTON WHEATLEY DO C Ot Z36.8 9 ENCOUNTER FOR OTHER SPECIFIED 08/02/2018 MARY LOU WHEATLEY DOA C Ot Z3A.2 0 20 WEEKS GESTATION OF 08/05/2018 NICKS DO, DENNY E Ot O99.8 9 OTH DISEASES AND CONDITIONS COMPL PREG/C 08/05/2018 SEALS DO, DENNY E Ot R06.0 2 SHORTNESS OF BREATH 08/05/2018 SEALS DO, DENNY E Ot R42 DIZZINESS AND GIDDINESS 08/05/2018 SEALS DO, DENNY E Ot Z3A.2 6 26 WEEKS GESTATION OF 08/08/2018 SEALS DO, DENNY E Ot O99.8 9 OTH DISEASES AND CONDITIONS COMPL PREG/C 08/08/2018 SEALS DO, DENNY E Ot R06.0 2 SHORTNESS OF BREATH 08/08/2018 SEALS DO, DENNY E Ot R42 DIZZINESS AND GIDDINESS 08/08/2018 SEALS DO, DENNY E Ot Z3A.2 6 26 WEEKS GESTATION OF 08/31/2018 KAREL MORALES Ot N30.00 ACUTE CYSTITIS WITHOUT HEMATURIA 08/31/2018 KAREL MORALES Ot R30.0 DYSURIA 08/31/2018 KAREL MORALES Ot Z20.2 CONTACT W AND EXPOSURE TO INFECT W A SEX 08/31/2018 KOLTON WHEATLEY DO Yasmine Ot Z36.8 9 ENCOUNTER FOR OTHER SPECIFIED 08/31/2018 MARY LOU WHEATLEY DOA C Ot Z3A.2 0 20 WEEKS GESTATION OF 09/18/2018 DIONI BROOKSKOLTON Ot R73.0 2 IMPAIRED GLUCOSE TOLERANCE (ORAL) 10/22/2018 NICKS DO, DENNY E Ot O36.8130 DECREASED MOVEMENTS, THIRD TRIMEST 10/22/2018 SEALS DO, DENNY E Ot Z3A.3 7 37 WEEKS GESTATION OF 10/24/2018 NICKS DO, DENNY E Ot O36.8130 DECREASED MOVEMENTS, THIRD TRIMEST 10/24/2018 SEALS DO, DENNY E Ot Z3A.3 7 37 WEEKS GESTATION OF 11/05/2018 DIONI BOROKS KOLTON C Ot D62 ACUTE POSTHEMORRHAGIC ANEMIA 11/05/2018 DIONI BROOKS KOLTON C Ot F32.9 MAJOR DEPRESSIVE DISORDER, SINGLE EPISOD 11/05/2018 DIONI BROOKSKOLTON Ot F41.9 ANXIETY DISORDER, UNSPECIFIED 11/05/2018 DIONI RBOOKS KOLTON C Ot O46.0 03 ANTEPARTUM HEMORRHAGE W COAG DEFECT, UNS 11/05/2018 DIONI BROOKS KOLTON C Ot O69.81X0 LABOR AND DEL COMP BY CORD AROUND NECK, 11/05/2018 DIONI BROOKSKOLTON Ot O90.8 1 ANEMIA OF THE PUERPERIUM 11/05/2018 DIONI BROOKSKOLTON Ot O99.3 44 OTHER MENTAL DISORDERS COMPLICATING CHIL 11/05/2018 WHEATLEY KOLTON Ot O99.8 24 STREPTOCOCCUS B CARRIER STATE COMPLICATI 11/05/2018 DIONI BROOKS KOLTON C Ot Z37.0 SINGLE LIVE 11/05/2018 DIONI BROOKS KOLTON C Ot Z3A.3 9 39 WEEKS GESTATION OF 11/09/2018 KAN HURD DORY Doretha Ot O99.1 13 OTH DIS OF BLD/BLD-FORM ORG/IMMUN MECHNS 02/05/2019 DIONI BROOKS KOLTON C Ot N81.8 9 OTHER FEMALE GENITAL PROLAPSE 02/05/2019 WHEATLEY KOLTON Ot N87.1 MODERATE CERVICAL DYSPLASIA 02/07/2019 DIONI BROOKSKOLTON Ot N81.8 9 OTHER FEMALE GENITAL PROLAPSE 02/07/2019 DIONI BROOKSKOLTON Ot N87.1 MODERATE CERVICAL DYSPLASIA 02/14/2019 KOLTON WHEATLEY DO Ot 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 02/14/2019 WHEATLEYKOLTON Phelps DO Ot F17.2 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 DEPENDENCE, OTHER TOBACCO PRODU 02/14/2019 WHEATLEY KOLTON Ot F32.9 MAJOR DEPRESSIVE DISORDER, SINGLE EPISOD 02/14/2019 WHEATLEY KOLTON Ot F41.9 ANXIETY DISORDER, UNSPECIFIED 02/14/2019 WHEATLEY KOLTON Ot G43.9 09 MIGRAINE, UNSP, NOT INTRACTABLE, WITHOUT 02/14/2019 DIONI MARY LOUA Yasmine Ot G89.2 9 OTHER CHRONIC PAIN 02/14/2019 KOLTON WHEATLEY DO Ot N18.2 CHRONIC KIDNEY DISEASE, STAGE 2 (MILD) 02/14/2019 WHEATLEY DO, KOLTON C Ot R10.2 PELVIC AND PERINEAL PAIN 02/14/2019 WHEATLEY DO, KOLTON C Ot Z84.1 FAMILY HISTORY OF DISORDERS OF KIDNEY AN 02/20/2019 HATHAWAY DO, AFSHIN L Ot F17.2 10 NICOTINE DEPENDENCE, CIGARETTES, UNCOMPL 02/20/2019 HATHAWAY DO, AFSHIN L Ot F32.9 MAJOR DEPRESSIVE DISORDER, SINGLE EPISOD 02/20/2019 HATHAWAY DO, AFSHIN L Ot F41.9 ANXIETY DISORDER, UNSPECIFIED 02/20/2019 HATHAWAY DO, AFSHIN L Ot G43.9 09 MIGRAINE, UNSP, NOT INTRACTABLE, WITHOUT 02/20/2019 HATHAWAY DO, AFSHIN L Ot L76.2 2 POSTPROC HEMORRHAGE OF SKIN, SUBCU FOLLO 02/20/2019 HATHAWAY DO, AFSHIN L Ot S30.811A ABRASION OF ABDOMINAL WALL, INITIAL ENCO 02/20/2019 HATHAWAY DO, AFSHIN L Ot X58.XXXA EXPOSURE TO OTHER SPECIFIED FACTORS, INI 02/20/2019 HATHAWAY DO, AFSHIN L Ot Z90.7 10 ACQUIRED ABSENCE OF BOTH CERVIX AND UTER 03/13/2019 WHEATLEY DO, KOLTON C Ot 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 03/13/2019 WHEATLEY DO, KOLTON C Ot F17.2 90 NICOTINE DEPENDENCE, OTHER TOBACCO PRODU 03/13/2019 WHEATLEY DO, KOLTON C Ot F32.9 MAJOR DEPRESSIVE DISORDER, SINGLE EPISOD 03/13/2019 WHEATLEY DO, KOLTON C Ot F41.9 ANXIETY DISORDER, UNSPECIFIED 03/13/2019 WHEATLEY DO, KOLTON C Ot G43.9 09 MIGRAINE, UNSP, NOT INTRACTABLE, WITHOUT 03/13/2019 WHEATLEY DO, KOLTON C Ot G89.2 9 OTHER CHRONIC PAIN 03/13/2019 WHEATLEY DO, KOLTON C Ot N18.2 CHRONIC KIDNEY DISEASE, STAGE 2 (MILD) 03/13/2019 WHEATLEY DO, KOLTON C Ot R10.2 PELVIC AND PERINEAL PAIN 03/13/2019 WHEATLEY DO, KOLTON C Ot Z84.1 FAMILY HISTORY OF DISORDERS OF KIDNEY AN 03/15/2019 WHEATLEY DO, KOLTON C Ot 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 03/15/2019 WHEATLEY DO, KOLTON C Ot F17.2 90 NICOTINE DEPENDENCE, OTHER TOBACCO PRODU 03/15/2019 KOLTON WHEATLEY DO Ot F32.9 MAJOR DEPRESSIVE DISORDER, SINGLE EPISOD 03/15/2019 KOLTON WHEATLEY DO Ot F41.9 ANXIETY DISORDER, UNSPECIFIED 03/15/2019 KOLTON WHEATLEY DO Ot G43.9 09 MIGRAINE, UNSP, NOT INTRACTABLE, WITHOUT 03/15/2019 KOLTON WHEATLEY DO Ot G89.2 9 OTHER CHRONIC PAIN 03/15/2019 KOLTON WHEATLEY DO Ot N18.2 CHRONIC KIDNEY DISEASE, STAGE 2 (MILD) 03/15/2019 KOLTON WHEATLEY DO Ot R10.2 PELVIC AND PERINEAL PAIN 03/15/2019 KOLTON WHEATLEY DO Ot Z84.1 FAMILY HISTORY OF DISORDERS OF KIDNEY AN Procedures Code Description Performed By Per formed On [id number] IN TRODUCE OTH THERAP SUBST IN MOUTH/PHAR 11/02/2018 [id number] DE LIVERY OF PRODUCTS OF CONCEPTION, EXTE 11/03/2018 Results Test Result Range Bacterial urine culture - 05/27/17 17:47 Bacterial urine culture [id number] NRG COLONY COUNT 10,000/ML - 100,000/ML NRG FTX;REPORTABLE SENSITIVITY REPORTED 05/29/17 17:25 - NRG Bacterial susceptibility panel - 8 17:47 Gentamicin susceptibility test by minimum inhibitory c oncentration <= NRG Trimethoprim/sulfamethoxazole susceptibi lity test by minimum inhibitoryconcentration S NRG Ampicillin susceptibility test by minimum inhibitory c oncentration >= NRG Tobramycin susceptibility test by minimum inhibitory c oncentration <= NRG Cefazolin susceptibility test by minimum inhibitory co ncentration <= NRG Ceftriaxone susceptibility test by minimum inhibitory concentration <= NRG Ampicillin/sulbactam susceptibility test by minimum inhibitory concentration I NRG Piperacillin/tazobactam susceptibility t est by minimum inhibitory concentration S NRG Ciprofloxacin susceptibility test by minimum inhibitor y concentration <= NRG Meropenem susceptibility test by minimum inhibitory co ncentration <= NRG Nitrofurantoin susceptibility test by mi nimum inhibitory concentration <= NRG Aztreonam susceptibility test by minimum inhibitory co ncentration <= NRG Extended spectrum beta lactamase (ESBL) producing bacteria susceptibility test by minimum inhibitory concentration - NRG Complete urinalysis with reflex to cultu re - 07/31/17 21:44 Urine color determination YELLOW NRG Urine clarity determination VERY CLOUDY NRG Urine pH measurement by test strip 7 5-9 Specific gravity of urine by test strip 1.010 1.016-1.022 Urine protein assay by test strip, semi-quantitative NEGATIVE NEGATIVE Urine glucose detection by automated test strip NE GATIVE NEGATIVE Erythrocytes detection in urine sediment by light micr oscopy NEGATIVE NEGATIVE Urine ketones detection by automated test strip NE GATIVE NEGATIVE Urine nitrite detection by test strip NEGATIVE NEGATIVE Urine total bilirubin detection by test strip NEGA TIVE NEGATIVE Urine urobilinogen measurement by automated test strip (mass/volume) 4 mg/dL NORMAL Urine leukocyte esterase detection by dipstick 1+ NEGATIVE Automated urine sediment erythrocyte cou nt by microscopy (number/high power field) NONE NRG Automated urine sediment leukocyte count by microscopy (number/high power field) [HPF] NRG Bacteria detection in urine sediment by light microsco py FEW NRG Squamous epithelial cells detection in u rine sediment by light microscopy 10-25 NRG Crystals detection in urine sediment by light microsco py PRESENT NRG Casts detection in urine sediment by light microscopy NONE NRG Mucus detection in urine sediment by light microscopy NEGATIVE NRG Complete urinalysis with reflex to culture NO NRG Amorphous sediment detection in urine sediment by ligh t microscopy LARGE MICHELLE PHOSPHATE NRG Complete blood count (CBC) with automate d white blood cell (WBC) differential - 07/31/17 22:00 Blood leukocytes automated count (number/volume) 6.5 10*3/uL 4.3-11.0 Blood erythrocytes automated count (number/volume) 4.68 10*6/uL 4.35-5.85 Venous blood hemoglobin measurement (mass/volume) 13.6 g/dL 11.5-16.0 Blood hematocrit (volume fraction) 40 % 35-52 Automated erythrocyte mean corpuscular volume 85 [ foz_us] 80-99 Automated erythrocyte mean corpuscular h emoglobin (mass per erythrocyte) 29 pg 25-34 Automated erythrocyte mean corpuscular h emoglobin concentration measurement (mass/volume) 34 g/dL 32-36 Automated erythrocyte distribution width ratio 13. 4 % 10.0- 14.5 Automated blood platelet count [...] 10*3 1.0-4.0 Blood monocytes automated count (number/volume) 0. 6 10*3 0.0-1.0 Automated eosinophil count 0.2 10*3/uL 0 .0-0.3 Automated blood basophil count (count/volume) 0.0 10*3/uL 0.0-0.1 Comprehensive metabolic panel - 07/31/17 22:00 Serum or plasma sodium measurement (moles/volume) 140 mmol/L 135-145 Serum or plasma potassium measurement (moles/volume) 3.7 mmol/L 3.6-5.0 Serum or plasma chloride measurement (moles/volume) 111 mmol/L 98-107 Carbon dioxide 21 mmol/L 21-32 Serum or plasma anion gap determination (moles/volume) 8 mmol/L 5-14 Serum or plasma urea nitrogen measurement (mass/volume ) 8 mg/dL 7-18 Serum or plasma creatinine measurement (mass/volume) 0.73 mg/dL 0.60-1.30 Serum or plasma urea nitrogen/creatinine mass ratio 11 NRG Serum or plasma creatinine measurement w ith calculation of estimated glomerular filtration rate > NRG Serum or plasma glucose measurement (mass/volume) 100 mg/dL 70-105 Serum or plasma calcium measurement (mass/volume) 9.6 mg/dL 8.5-10.1 Serum or plasma total bilirubin measurement (mass/volu me) 0.8 mg/dL 0.1-1.0 Serum or plasma alkaline phosphatase [place] surement (enzymatic activity/volume) 68 U/L 40-136 Serum or plasma aspartate aminotransfera se measurement (enzymatic activity/volume) 20 U/L 5-34 Serum or plasma alanine aminotransferase measurement (enzymatic activity/volume) 19 U/L 0-55 Serum or plasma protein measurement (mass/volume) 7.3 g/dL 6.4-8.2 Serum or plasma albumin measurement (mass/volume) 4.6 g/dL 3.2-4.5 Serum or plasma choriogonadotropin measu rement (units/volume) - 07/31/17 22:00 Serum or plasma choriogonadotropin measurement (units/ volume) 972 m[iU]/mL <5 Complete blood count (CBC) with automate d white blood cell (WBC) differential - 08/15/17 21:23 Blood leukocytes automated count (number/volume) 6.2 10*3/uL 4.3-11.0 Blood erythrocytes automated count (number/volume) 4.46 10*6/uL 4.35-5.85 Venous blood hemoglobin measurement (mass/volume) 13.2 g/dL 11.5-16.0 Blood hematocrit (volume fraction) 39 % 35-52 Automated erythrocyte mean corpuscular volume 87 [ foz_us] 80-99 Automated erythrocyte mean corpuscular h emoglobin (mass per erythrocyte) 30 pg 25-34 Automated erythrocyte mean corpuscular h emoglobin concentration measurement (mass/volume) 34 g/dL 32-36 Automated erythrocyte distribution width ratio 13. 1 % 10.0- 14.5 Automated blood platelet count [...] 10*3 1.0-4.0 Blood monocytes automated count (number/volume) 0. 5 10*3 0.0-1.0 Automated eosinophil count 0.2 10*3/uL 0 .0-0.3 Automated blood basophil count (count/volume) 0.0 10*3/uL 0.0-0.1 Complete urinalysis with reflex to cultu re - 08/15/17 21:23 Urine color determination RED NRG Urine clarity determination SLIGHTLY CLOUDY NRG Urine pH measurement by test strip 6 5-9 Specific gravity of urine by test strip 1.025 1.016-1.022 Urine protein assay by test strip, semi-quantitative 3+ NEGATIVE Urine glucose detection by automated test strip NE GATIVE NEGATIVE Erythrocytes detection in urine sediment by light micr oscopy 5+ NEGATIVE Urine ketones detection by automated test strip 1+ NEGATIVE Urine nitrite detection by test strip NEGATIVE NEGATIVE Urine total bilirubin detection by test strip NEGA TIVE NEGATIVE Urine urobilinogen measurement by automated test strip (mass/volume) 1 mg/dL NORMAL Urine leukocyte esterase detection by dipstick 2+ NEGATIVE Automated urine sediment erythrocyte cou nt by microscopy (number/high power field) TNTC NRG Automated urine sediment leukocyte count by microscopy (number/high power field) [HPF] NRG Bacteria detection in urine sediment by light microsco py FEW NRG Squamous epithelial cells detection in u rine sediment by light microscopy 10-25 NRG Crystals detection in urine sediment by light microsco py NONE NRG Casts detection in urine sediment [...] 5-14 Serum or plasma urea nitrogen measurement (mass/volume ) 6 mg/dL 7-18 Serum or plasma creatinine measurement (mass/volume) 0.70 mg/dL 0.60-1.30 Serum or plasma urea nitrogen/creatinine mass ratio 9 NRG Serum or plasma creatinine measurement w ith calculation of estimated glomerular filtration rate > NRG Serum or plasma glucose measurement (mass/volume) 109 mg/dL 70-105 Serum or plasma calcium measurement (mass/volume) 9.5 mg/dL 8.5-10.1 Serum or plasma total bilirubin measurement (mass/volu me) 0.6 mg/dL 0.1-1.0 Serum or plasma alkaline phosphatase [place] surement (enzymatic activity/volume) 63 U/L 40-136 Serum or plasma aspartate aminotransfera se measurement (enzymatic activity/volume) 15 U/L 5-34 Serum or plasma alanine aminotransferase measurement (enzymatic activity/volume) 11 U/L 0-55 Serum or plasma protein measurement (mass/volume) 6.8 g/dL 6.4-8.2 Serum or plasma albumin measurement (mass/volume) 4.4 g/dL 3.2-4.5 Serum or plasma choriogonadotropin measu rement (units/volume) - 08/15/17 21:23 Serum or plasma choriogonadotropin measurement (units/ volume) 1275 m[iU]/mL <5 Bacterial urine culture - 08/15/17 21:23 Bacterial urine culture [id number] NRG COLONY COUNT >100,000/ML NRG FTX;REPORTABLE REPORTED BY L 08/16 17:05 NRG Complete urinalysis with reflex to cultu re - 11/24/17 14:34 Urine color determination YELLOW NRG Urine clarity determination CLEAR NR G Urine pH measurement by test strip 5 5-9 Specific gravity of urine by test strip 1.020 1.016-1.022 Urine protein assay by test strip, semi-quantitative NEGATIVE NEGATIVE Urine glucose detection by automated test strip NE GATIVE NEGATIVE Erythrocytes detection in urine sediment by light micr oscopy NEGATIVE NEGATIVE Urine ketones detection by automated test strip NE GATIVE NEGATIVE Urine nitrite detection by test strip NEGATIVE NEGATIVE Urine total bilirubin detection by test strip NEGA TIVE NEGATIVE Urine urobilinogen measurement by automated test strip (mass/volume) NORMAL NORMAL Urine leukocyte esterase detection by dipstick 1+ NEGATIVE Automated urine sediment erythrocyte cou nt by microscopy (number/high power field) NONE NRG Automated urine sediment leukocyte count by microscopy (number/high power field) [HPF] NRG Bacteria detection in urine sediment by light microsco py MODERATE NRG Squamous epithelial cells detection in u rine sediment by light microscopy 10-25 NRG Crystals detection in urine sediment by light microsco py NONE NRG Casts detection in urine sediment by light microscopy NONE NRG Mucus detection in urine sediment by light microscopy SMALL NRG Complete urinalysis with reflex to culture YES NRG Bacterial urine culture - 11/24/17 14:34 Bacterial urine culture SEE COMMEN NRG COLONY COUNT . NRG Complete blood count (CBC) with automate d white blood cell (WBC) differential - 11/24/17 14:45 Blood leukocytes automated count (number/volume) 5.2 10*3/uL 4.3-11.0 Blood erythrocytes automated count (number/volume) 4.80 10*6/uL 4.35-5.85 Venous blood hemoglobin measurement (mass/volume) 14.2 g/dL 11.5-16.0 Blood hematocrit (volume fraction) 41 % 35-52 Automated erythrocyte mean corpuscular volume 85 [ foz_us] 80-99 Automated erythrocyte mean corpuscular h emoglobin (mass per erythrocyte) 30 pg 25-34 Automated erythrocyte mean corpuscular h emoglobin concentration measurement (mass/volume) 35 g/dL 32-36 Automated erythrocyte distribution width ratio 12. 5 % 10.0- 14.5 Automated blood platelet count [...] 10*3 1.0-4.0 Blood monocytes automated count (number/volume) 0. 4 10*3 0.0-1.0 Automated eosinophil count 0.1 10*3/uL 0 .0-0.3 Automated blood basophil count (count/volume) 0.0 10*3/uL 0.0-0.1 Comprehensive metabolic panel - 11/24/17 14:45 Serum or plasma sodium measurement (moles/volume) 139 mmol/L 135-145 Serum or plasma potassium measurement (moles/volume) 3.6 mmol/L 3.6-5.0 Serum or plasma chloride measurement (moles/volume) 106 mmol/L 98-107 Carbon dioxide 22 mmol/L 21-32 Serum or plasma anion gap determination (moles/volume) 11 mmol/L 5-14 Serum or plasma urea nitrogen measurement (mass/volume ) 8 mg/dL 7-18 Serum or plasma creatinine measurement (mass/volume) 0.76 mg/dL 0.60-1.30 Serum or plasma urea nitrogen/creatinine mass ratio 11 NRG Serum or plasma creatinine measurement w ith calculation of estimated glomerular filtration rate > NRG Serum or plasma glucose measurement (mass/volume) 82 mg/dL 70-105 Serum or plasma calcium measurement (mass/volume) 9.5 mg/dL 8.5-10.1 Serum or plasma total bilirubin measurement (mass/volu me) 0.9 mg/dL 0.1-1.0 Serum or plasma alkaline phosphatase [place] surement (enzymatic activity/volume) 61 U/L 40-136 Serum or plasma aspartate aminotransfera se measurement (enzymatic activity/volume) 15 U/L 5-34 Serum or plasma alanine aminotransferase measurement (enzymatic activity/volume) 9 U/L 0-55 Serum or plasma protein measurement (mass/volume) 7.0 g/dL 6.4-8.2 Serum or plasma albumin measurement (mass/volume) 4.5 g/dL 3.2-4.5 CALCIUM CORRECTED 9.1 mg/dL 8.5-10.1 Serum or plasma amylase measurement (enz ymatic activity/volume) - 11/24/17 14:45 Serum or plasma amylase measurement (enzymatic activit y/volume) 45 U/L 25-125 Lipase - 11/24/17 14:45 Lipase 36 U/L 8-78 Serum or plasma choriogonadotropin measu rement (units/volume) - 11/24/17 14:45 Serum or plasma choriogonadotropin measurement (units/ volume) < m[iU]/mL <5 Urine beta human chorionic gonadotropin (hCG) measurement - 03/09/18 18:34 Urine beta human chorionic gonadotropin (hCG) measurem ent POSITIVE NEGATIVE Complete urinalysis with reflex to cultu re - 03/09/18 18:34 Urine color determination YELLOW NRG Urine clarity determination CLEAR NR G Urine pH measurement by test strip 7 5-9 Specific gravity of urine by test strip 1.015 1.016-1.022 Urine protein assay by test strip, semi-quantitative NEGATIVE NEGATIVE Urine glucose detection by automated test strip NE GATIVE NEGATIVE Erythrocytes detection in urine sediment by light micr oscopy NEGATIVE NEGATIVE Urine ketones detection by automated test strip NE GATIVE NEGATIVE Urine nitrite detection by test strip NEGATIVE NEGATIVE Urine total bilirubin detection by test strip NEGA TIVE NEGATIVE Urine urobilinogen measurement by automated test strip (mass/volume) 1 mg/dL NORMAL Urine leukocyte esterase detection by dipstick 1+ NEGATIVE Automated urine sediment erythrocyte cou nt by microscopy (number/high power field) NONE NRG Automated urine sediment leukocyte count by microscopy (number/high power field) [HPF] NRG Bacteria detection in urine sediment by light microsco py NONE NRG Squamous epithelial cells detection in u rine sediment by light microscopy 10-25 NRG Crystals detection in urine sediment by light microsco py PRESENT NRG Casts detection in urine sediment by light microscopy NONE NRG Mucus detection in urine sediment by light microscopy NONE NRG Complete urinalysis with reflex to culture NO NRG Amorphous sediment detection in urine sediment by ligh t microscopy LARGE MICHELLE URATES NRG Urine drug screening test - 03/09/18 18: 34 Urine phencyclidine detection by screening method NEGATIVE NEGATIVE Urine benzodiazepines detection by screening method NEGATIVE NEGATIVE Urine cocaine detection NEGATIVE NEGATI VE Urine amphetamines detection by screening method N EGATIVE NEGATIVE Urine methamphetamine detection by screening method NEGATIVE NEGATIVE Urine cannabinoids detection by screening method N EGATIVE NEGATIVE Urine opiates detection by screening method NEGATI VE NEGATIVE Urine barbiturates detection NEGATIVE N EGATIVE Screening urine tricyclic antidepressants detection NEGATIVE NEGATIVE Urine methadone detection by screening method NEGA TIVE NEGATIVE Urine oxycodone detection NEGATIVE NEGA TIVE Urine propoxyphene detection NEGATIVE N EGATIVE Complete blood count (CBC) with automate d white blood cell (WBC) differential - 03/09/18 18:45 Blood leukocytes automated count (number/volume) 5.6 10*3/uL 4.3-11.0 Blood erythrocytes automated count (number/volume) 4.47 10*6/uL 4.35-5.85 Venous blood hemoglobin measurement (mass/volume) 12.9 g/dL 11.5-16.0 Blood hematocrit (volume fraction) 39 % 35-52 Automated erythrocyte mean corpuscular volume 86 [ foz_us] 80-99 Automated erythrocyte mean corpuscular h emoglobin (mass per erythrocyte) 29 pg 25-34 Automated erythrocyte mean corpuscular h emoglobin concentration measurement (mass/volume) 34 g/dL 32-36 Automated erythrocyte distribution width ratio 13. 1 % 10.0- 14.5 Automated blood platelet count [...] 10*3 1.0-4.0 Blood monocytes automated count (number/volume) 0. 6 10*3 0.0-1.0 Automated eosinophil count 0.1 10*3/uL 0 .0-0.3 Automated blood basophil count (count/volume) 0.0 10*3/uL 0.0-0.1 Serum heterophile antibody titer - 03/09 18:45 Serum heterophile antibody titer NEGATIVE NEGATIVE Comprehensive metabolic panel - 03/09/18 18:45 Serum or plasma sodium measurement (moles/volume) 139 mmol/L 135-145 Serum or plasma potassium measurement (moles/volume) 3.9 mmol/L 3.6-5.0 Serum or plasma chloride measurement (moles/volume) 110 mmol/L 98-107 Carbon dioxide 20 mmol/L 21-32 Serum or plasma anion gap determination (moles/volume) 9 mmol/L 5-14 Serum or plasma urea nitrogen measurement (mass/volume ) 15 mg/dL 7-18 Serum or plasma creatinine measurement (mass/volume) 0.80 mg/dL 0.60-1.30 Serum or plasma urea nitrogen/creatinine mass ratio 19 NRG Serum or plasma creatinine measurement w ith calculation of estimated glomerular filtration rate > NRG Serum or plasma glucose measurement (mass/volume) 93 mg/dL 70-105 Serum or plasma calcium measurement (mass/volume) 9.0 mg/dL 8.5-10.1 Serum or plasma total bilirubin measurement (mass/volu me) 0.8 mg/dL 0.1-1.0 Serum or plasma alkaline phosphatase [place] surement (enzymatic activity/volume) 57 U/L 40-136 Serum or plasma aspartate aminotransfera se measurement (enzymatic activity/volume) 19 U/L 5-34 Serum or plasma alanine aminotransferase measurement (enzymatic activity/volume) 14 U/L 0-55 Serum or plasma protein measurement (mass/volume) 6.7 g/dL 6.4-8.2 Serum or plasma albumin measurement (mass/volume) 4.3 g/dL 3.2-4.5 CALCIUM CORRECTED 8.8 mg/dL 8.5-10.1 Lipase - 03/09/18 18:45 Lipase 27 U/L 8-78 Automated blood complete blood count (he mogram) panel - 04/30/18 10:56 Blood leukocytes automated count (number/volume) 4.1 10*3/uL 4.3-11.0 Blood erythrocytes automated count (number/volume) 4.60 10*6/uL 4.35-5.85 Venous blood hemoglobin measurement (mass/volume) 13.4 g/dL 11.5-16.0 Blood hematocrit (volume fraction) 39 % 35-52 Automated erythrocyte mean corpuscular volume 84 [ foz_us] 80-99 Automated erythrocyte mean corpuscular h emoglobin (mass per erythrocyte) 29 pg 25-34 Automated erythrocyte mean corpuscular h emoglobin concentration measurement (mass/volume) 35 g/dL 32-36 Automated erythrocyte distribution width ratio 13. 4 % 10.0- 14.5 Automated blood platelet count [...] 5-14 Serum or plasma urea nitrogen measurement (mass/volume ) 5 mg/dL 7-18 Serum or plasma creatinine measurement (mass/volume) 0.68 mg/dL 0.60-1.30 Serum or plasma urea nitrogen/creatinine mass ratio 7 NRG Serum or plasma creatinine measurement w ith calculation of estimated glomerular filtration rate > NRG Serum or plasma glucose measurement (mass/volume) 86 mg/dL 70-105 Serum or plasma calcium measurement (mass/volume) 9.2 mg/dL 8.5-10.1 Serum or plasma total bilirubin measurement (mass/volu me) 0.6 mg/dL 0.1-1.0 Serum or plasma alkaline phosphatase [place] surement (enzymatic activity/volume) 54 U/L 40-136 Serum or plasma aspartate aminotransfera se measurement (enzymatic activity/volume) 18 U/L 5-34 Serum or plasma alanine aminotransferase measurement (enzymatic activity/volume) 14 U/L 0-55 Serum or plasma protein measurement (mass/volume) 6.9 g/dL 6.4-8.2 Serum or plasma albumin measurement (mass/volume) 4.2 g/dL 3.2-4.5 CALCIUM CORRECTED 9.0 mg/dL 8.5-10.1 ABO+Rh group - 04/30/18 10:56 ABO+Rh group OP NRG Transfusion band number TNP NRG Complete urinalysis with reflex to cultu re - 04/30/18 11:00 Urine color determination YELLOW NRG Urine clarity determination SLIGHTLY CLOUDY NRG Urine pH measurement by test strip 6.5 5-9 Specific gravity of urine by test strip 1.010 1.016-1.022 Urine protein assay by test strip, semi-quantitative NEGATIVE NEGATIVE Urine glucose detection by automated test strip NE GATIVE NEGATIVE Erythrocytes detection in urine sediment by light micr oscopy NEGATIVE NEGATIVE Urine ketones detection by automated test strip NE GATIVE NEGATIVE Urine nitrite detection by test strip NEGATIVE NEGATIVE Urine total bilirubin detection by test strip NEGA TIVE NEGATIVE Urine urobilinogen measurement by automated test strip (mass/volume) NORMAL NORMAL Urine leukocyte esterase detection by dipstick 1+ NEGATIVE Automated urine sediment erythrocyte cou nt by microscopy (number/high power field) NONE NRG Automated urine sediment leukocyte count by microscopy (number/high power field) [HPF] NRG Bacteria detection in urine sediment by light microsco py FEW NRG Squamous epithelial cells detection in u rine sediment by light microscopy 10-25 NRG Crystals detection in urine sediment by light microsco py NONE NRG Casts detection in urine sediment by light microscopy NONE NRG Mucus detection in urine sediment by light microscopy NEGATIVE NRG Complete urinalysis with reflex to culture YES NRG Bacterial urine culture - 04/30/18 11:00 Bacterial urine culture SEE COMMEN NRG COLONY COUNT . NRG FREE TEXT ENTRY 3 RML SENT ABOVE REPORT 05/01 08:06 NRG Complete urinalysis with reflex to cultu re - 06/06/18 20:33 Urine color determination YELLOW NRG Urine clarity determination SLIGHTLY CLOUDY NRG Urine pH measurement by test strip 6 5-9 Specific gravity of urine by test strip 1.025 1.016-1.022 Urine protein assay by test strip, semi-quantitative NEGATIVE NEGATIVE Urine glucose detection by automated test strip NE GATIVE NEGATIVE Erythrocytes detection in urine sediment by light micr oscopy NEGATIVE NEGATIVE Urine ketones detection by automated test strip NE GATIVE NEGATIVE Urine nitrite detection by test strip NEGATIVE NEGATIVE Urine total bilirubin detection by test strip NEGA TIVE NEGATIVE Urine urobilinogen measurement by automated test strip (mass/volume) NORMAL NORMAL Urine leukocyte esterase detection by dipstick 1+ NEGATIVE Automated urine sediment erythrocyte cou nt by microscopy (number/high power field) NONE NRG Automated urine sediment leukocyte count by microscopy (number/high power field) [HPF] NRG Bacteria detection in urine sediment by light microsco py FEW NRG Squamous epithelial cells detection in u rine sediment by light microscopy 10-25 NRG Crystals detection in urine sediment by light microsco py PRESENT NRG Casts detection in urine sediment by light microscopy NONE NRG Mucus detection in urine sediment by light microscopy MODERATE NRG Complete urinalysis with reflex to culture NO NRG Calcium oxalate crystals detection in ur ine sediment by light microscopy MODERATE NRG Bacterial urine culture - 06/06/18 20:33 Bacterial urine culture SEE REPORT NRG COLONY COUNT . NRG Complete blood count (CBC) with automate d white blood cell (WBC) differential - 06/06/18 20:39 Blood leukocytes automated count (number/volume) 7.6 10*3/uL 4.3-11.0 Blood erythrocytes automated count (number/volume) 4.29 10*6/uL 4.35-5.85 Venous blood hemoglobin measurement (mass/volume) 12.6 g/dL 11.5-16.0 Blood hematocrit (volume fraction) 36 % 35-52 Automated erythrocyte mean corpuscular volume 84 [ foz_us] 80-99 Automated erythrocyte mean corpuscular h emoglobin (mass per erythrocyte) 29 pg 25-34 Automated erythrocyte mean corpuscular h emoglobin concentration measurement (mass/volume) 35 g/dL 32-36 Automated erythrocyte distribution width ratio 13. 7 % 10.0- 14.5 Automated blood platelet count [...] 10*3 1.0-4.0 Blood monocytes automated count (number/volume) 0. 7 10*3 0.0-1.0 Automated eosinophil count 0.1 10*3/uL 0 .0-0.3 Automated blood basophil count (count/volume) 0.0 10*3/uL 0.0-0.1 Comprehensive metabolic panel - 06/06/18 20:39 Serum or plasma sodium measurement (moles/volume) 140 mmol/L 135-145 Serum or plasma potassium measurement (moles/volume) 3.3 mmol/L 3.6-5.0 Serum or plasma chloride measurement (moles/volume) 108 mmol/L 98-107 Carbon dioxide 23 mmol/L 21-32 Serum or plasma anion gap determination (moles/volume) 9 mmol/L 5-14 Serum or plasma urea nitrogen measurement (mass/volume ) 7 mg/dL 7-18 Serum or plasma creatinine measurement (mass/volume) 0.64 mg/dL 0.60-1.30 Serum or plasma urea nitrogen/creatinine mass ratio 11 NRG Serum or plasma creatinine measurement w ith calculation of estimated glomerular filtration rate > NRG Serum or plasma glucose measurement (mass/volume) 83 mg/dL 70-105 Serum or plasma calcium measurement (mass/volume) 9.2 mg/dL 8.5-10.1 Serum or plasma total bilirubin measurement (mass/volu me) 0.3 mg/dL 0.1-1.0 Serum or plasma alkaline phosphatase [place] surement (enzymatic activity/volume) 50 U/L 40-136 Serum or plasma aspartate aminotransfera se measurement (enzymatic activity/volume) 18 U/L 5-34 Serum or plasma alanine aminotransferase measurement (enzymatic activity/volume) 8 U/L 0-55 Serum or plasma protein measurement (mass/volume) 6.3 g/dL 6.4-8.2 Serum or plasma albumin measurement (mass/volume) 3.8 g/dL 3.2-4.5 CALCIUM CORRECTED 9.4 mg/dL 8.5-10.1 Serum or plasma choriogonadotropin measu rement (units/volume) - 06/06/18 20:39 Serum or plasma choriogonadotropin measurement (units/ volume) 8741 m[iU]/mL <5 Influenza virus A and B antigen detectio n - 06/06/18 20:39 FLU RESULT NEGATIVE FOR INFLUENZA A AND B ANTIGENS BY IA NRG Complete urinalysis with reflex to cultu re - 07/10/18 18:50 Urine color determination YELLOW NRG Urine clarity determination SLIGHTLY CLOUDY NRG Urine pH measurement by test strip 5 5-9 Specific gravity of urine by test strip 1.025 1.016-1.022 Urine protein assay by test strip, semi-quantitative NEGATIVE NEGATIVE Urine glucose detection by automated test strip NE GATIVE NEGATIVE Erythrocytes detection in urine sediment by light micr oscopy NEGATIVE NEGATIVE Urine ketones detection by automated test strip NE GATIVE NEGATIVE Urine nitrite detection by test strip NEGATIVE NEGATIVE Urine total bilirubin detection by test strip NEGA TIVE NEGATIVE Urine urobilinogen measurement by automated test strip (mass/volume) NORMAL NORMAL Urine leukocyte esterase detection by dipstick 2+ NEGATIVE Automated urine sediment erythrocyte cou nt by microscopy (number/high power field) NONE NRG Automated urine sediment leukocyte count by microscopy (number/high power field) [HPF] NRG Bacteria detection in urine sediment by light microsco py FEW NRG Squamous epithelial cells detection in u rine sediment by light microscopy >50 NRG Crystals detection in urine sediment by light microsco py NONE NRG Casts detection in urine sediment by light microscopy NONE NRG Mucus detection in urine sediment by light microscopy LARGE NRG Complete urinalysis with reflex to culture YES NRG Bacterial urine culture - 07/10/18 18:50 Bacterial urine culture 3 OR MORE NRG COLONY COUNT >100,000/ML NRG FTX;REPORTABLE (GRAM POSITIVE) SUGGESTING PROBABLE NRG FREE TEXT ENTRY 2 COLLECTION CONTAMINATION WITH SK IN KATE NRG FREE TEXT ENTRY 3 NO SUSCEPTIBILITY PERFORMED NRG Capillary blood glucose measurement by g lucometer (mass/volume) - 08/31/18 08:37 Capillary blood glucose measurement by glucometer (mas s/volume) 92 mg/dL 70-110 Complete urinalysis with reflex to cultu re - 11/02/18 01:40 Urine color determination YELLOW NRG Urine clarity determination SL CLOUDY N RG Urine pH measurement by test strip 8 5-9 Specific gravity of urine by test strip 1.010 1.016-1.022 Urine protein assay by test strip, semi-quantitative NEGATIVE NEGATIVE Urine glucose detection by automated test strip NE GATIVE NEGATIVE Erythrocytes detection in urine sediment by light micr oscopy 5+ NEGATIVE Urine ketones detection by automated test strip NE GATIVE NEGATIVE Urine nitrite detection by test strip NEGATIVE NEGATIVE Urine total bilirubin detection by test strip NEGA TIVE NEGATIVE Urine urobilinogen measurement by automated test strip (mass/volume) NORMAL NORMAL Urine leukocyte esterase detection by dipstick 3+ NEGATIVE Automated urine sediment erythrocyte cou nt by microscopy (number/high power field) > [HPF] NRG Automated urine sediment leukocyte count by microscopy (number/high power field) [HPF] NRG Bacteria detection in urine sediment by light microsco py FEW NRG Squamous epithelial cells detection in u rine sediment by light microscopy 10-25 NRG Crystals detection in urine sediment by light microsco py NONE NRG Casts detection in urine sediment by light microscopy NONE NRG Mucus detection in urine sediment by light microscopy SMALL NRG Complete urinalysis with reflex to culture CULTURE PENDING NRG Bacterial urine culture - 11/02/18 01:40 Bacterial urine culture [id number] NRG COLONY COUNT 20,000 CFU/ML NRG Blood type T Indirect antibody screen pa carissa - 11/02/18 20:15 WRISTBAND NUMBER [id number] NRG ABO+Rh group OP NRG Blood group antibody screen NEGATIVE NR G Complete blood count (CBC) with automate d white blood cell (WBC) differential - 11/02/18 20:25 Blood leukocytes automated count (number/volume) 8.0 10*3/uL 4.3-11.0 Blood erythrocytes automated count (number/volume) 4.17 10*6/uL 4.35-5.85 Venous blood hemoglobin measurement (mass/volume) 10.0 g/dL 11.5-16.0 Blood hematocrit (volume fraction) 32 % 35-52 Automated erythrocyte mean corpuscular volume 77 [ foz_us] 80-99 Automated erythrocyte mean corpuscular h emoglobin (mass per erythrocyte) 24 pg 25-34 Automated erythrocyte mean corpuscular h emoglobin concentration measurement (mass/volume) 31 g/dL 32-36 Automated erythrocyte distribution width ratio 16. 0 % 10.0- 14.5 Automated blood platelet count (count/volume) 139 10*3/uL 130-400 Automated blood platelet mean volume measurement 11.3 [fo_us] 7.4-10.4 Automated blood neutrophils/100 leukocytes 76 % 42-75 Automated blood lymphocytes/100 leukocytes 15 % 12-44 Blood monocytes/100 leukocytes 8 % 0-12 Automated blood eosinophils/100 leukocytes 1 % 0-10 Automated blood basophils/100 leukocytes 0 % 0-10 Blood neutrophils automated count (number/volume) 6.1 10*3 1.8-7.8 Blood lymphocytes automated count (number/volume) 1.2 10*3 1.0-4.0 Blood monocytes automated count (number/volume) 0. 7 10*3 0.0-1.0 Automated eosinophil count 0.1 10*3/uL 0 .0-0.3 Automated blood basophil count (count/volume) 0.0 10*3/uL 0.0-0.1 Complete blood count (CBC) with automate d white blood cell (WBC) differential - 11/04/18 06:00 Blood leukocytes automated count (number/volume) 9.6 10*3/uL 4.3-11.0 Blood erythrocytes automated count (number/volume) 3.63 10*6/uL 4.35-5.85 Venous blood hemoglobin measurement (mass/volume) 8.8 g/dL 11.5-16.0 Blood hematocrit (volume fraction) 28 % 35-52 Automated erythrocyte mean corpuscular volume 78 [ foz_us] 80-99 Automated erythrocyte mean corpuscular h emoglobin (mass per erythrocyte) 24 pg 25-34 Automated erythrocyte mean corpuscular h emoglobin concentration measurement (mass/volume) 31 g/dL 32-36 Automated erythrocyte distribution width ratio 16. 0 % 10.0- 14.5 Automated blood platelet count (count/volume) 108 10*3/uL 130-400 Automated blood platelet mean volume measurement 11.3 [foz_us] 7.4-10.4 Automated blood neutrophils/100 leukocytes 70 % 42-75 Automated blood lymphocytes/100 leukocytes 19 % 12-44 Blood monocytes/100 leukocytes 10 % 0-12 Automated blood eosinophils/100 leukocytes 1 % 0-10 Automated blood basophils/100 leukocytes 0 % 0-10 Blood neutrophils automated count (number/volume) 6.7 10*3 1.8-7.8 Blood lymphocytes automated count (number/volume) 1.8 10*3 1.0-4.0 Blood monocytes automated count (number/volume) 1. 0 10*3 0.0-1.0 Automated eosinophil count 0.1 10*3/uL 0 .0-0.3 Automated blood basophil count (count/volume) 0.0 10*3/uL 0.0-0.1 Complete blood count (CBC) with automate d white blood cell (WBC) differential - 02/05/19 14:23 Blood leukocytes automated count (number/volume) 4.2 10*3/uL 4.3-11.0 Blood erythrocytes automated count (number/volume) 4.38 10*6/uL 4.35-5.85 Venous blood hemoglobin measurement (mass/volume) 12.1 g/dL 11.5-16.0 Blood hematocrit (volume fraction) 36 % 35-52 Automated erythrocyte mean corpuscular volume 83 [ foz_us] 80-99 Automated erythrocyte mean corpuscular h emoglobin (mass per erythrocyte) 28 pg 25-34 Automated erythrocyte mean corpuscular h emoglobin concentration measurement (mass/volume) 33 g/dL 32-36 Automated erythrocyte distribution width ratio 16. 9 % 10.0- 14.5 Automated blood platelet count (count/volume) 165 10*3/uL 130-400 Automated blood platelet mean volume measurement 11.9 [foz_us] 7.4-10.4 Automated blood neutrophils/100 leukocytes 57 % 42-75 Automated blood lymphocytes/100 leukocytes 33 % 12-44 Blood monocytes/100 leukocytes 8 % 0-12 Automated blood eosinophils/100 leukocytes 2 % 0-10 Automated blood basophils/100 leukocytes 1 % 0-10 Blood neutrophils automated count (number/volume) 2.4 10*3 1.8-7.8 Blood lymphocytes automated count (number/volume) 1.4 10*3 1.0-4.0 Blood monocytes automated count (number/volume) 0. 4 10*3 0.0-1.0 Automated eosinophil count 0.1 10*3/uL 0 .0-0.3 Automated blood basophil count (count/volume) 0.0 10*3/uL 0.0-0.1 Complete urinalysis with reflex to cultu re - 02/05/19 14:23 Urine color determination YELLOW NRG Urine clarity determination CLEAR NR G Urine pH measurement by test strip 5.5 5-9 Specific gravity of urine by test strip >= 1.016-1.022 Urine protein assay by test strip, semi-quantitative NEGATIVE NEGATIVE Urine glucose detection by automated test strip NE GATIVE NEGATIVE Erythrocytes detection in urine sediment by light micr oscopy 1+ NEGATIVE Urine ketones detection by automated test strip TR SHEREE NEGATIVE Urine nitrite detection by test strip NEGATIVE NEGATIVE Urine total bilirubin detection by test strip NEGA TIVE NEGATIVE Urine urobilinogen measurement by automated test strip (mass/volume) 0.2 mg/dL < = 1.0 Urine leukocyte esterase detection by dipstick NEG ATIVE NEGATIVE Automated urine sediment erythrocyte cou nt by microscopy (number/high power field) RARE NRG Automated urine sediment leukocyte count by microscopy (number/high power field) RARE NRG Bacteria detection in urine sediment by light microsco py NEGATIVE NRG Squamous epithelial cells detection in u rine sediment by light microscopy 5-10 NRG Crystals detection in urine sediment by light microsco py NONE NRG Casts detection in urine sediment by light microscopy NONE NRG Mucus detection in urine sediment by light microscopy SMALL NRG Complete urinalysis with reflex to culture NO NRG Blood type T Indirect antibody screen [facility] [place] - 02/05/19 14:23 WRISTBAND NUMBER TNP NRG ABO+Rh group OP NRG Blood group antibody screen NEGATIVE NR G Methicillin resistant Staphylococcus aur eus (MRSA) screening culture - 02/05/19 14:23 Methicillin resistant Staphylococcus aureus (MRSA) scr eening culture NEG NRG Blood type T Indirect antibody screen [facility] [place] - 02/13/19 09:05 WRISTBAND NUMBER [id number] NRG ABO+Rh group OP NRG Blood group antibody screen NEGATIVE NR G Encounters ACCT No. Visit Date/Time Discharge Status Pt. Type Provider Facility Loc./Unit Complaint [id number] 02/16/2019 16:24:00 019 17:05:00 DIS Outpatient AFSHIN HATHAWAY DO [facility] ER POST OP WOUND BLEEDING - STOMACH [id number] 02/13/2019 08:43:00 019 12:55:00 DIS Outpatient KOLTON WHEATLEY DO [facility] SDC ELIZ II [id number] 02/05/2019 13:58:00 14:30:00 DIS Outpatient KOLTON WHEATLEY DO [facility] PREOP ELIZ II [id number] 11/02/2018 19:50:00 12:40:00 DIS Outpatient KOLTON WHEATLEY DO [facility] LDRP INDUCTION [id number] 10/31/2018 00:07:00 01:34:00 DIS Outpatient DENNY HURD DO [facility] WSo NOT FEELING ANY BABY MO VEMENT [id number] 10/22/2018 14:34:00 15:00:00 DIS Outpatient DENNY HURD DO [facility] WSo DECREASED MOVEMEN T [id number] 08/31/2018 08:21:00 23:59:59 CLS Outpatient KOLTON WHEATLEY DO [facility] LAB IMPAIRED GLUCOSE TOLERA NCE [id number] 08/05/2018 17:48:00 21:55:00 DIS Outpatient DENNY HURD DO [facility] WSo DEHYDRATION [id number] 07/10/2018 18:34:00 21:42:00 DIS Outpatient DENNY HURD DO [facility] WSo CONTRACTIONS [id number] 06/23/2018 10:08:00 23:59:59 CLS Outpatient KOLTON WHEATLEY DO [facility] RAD FETUS PRESENT DURING 2N D TRIMESTER [id number] 06/06/2018 20:16:00 21:40:00 DIS Emergency ALISSA HURTADO DO [facility] ER CRAMPING/BLEEDING,ANXIE TY ATTACK,18 WEEKS [id number] 04/30/2018 10:03:00 12:37:00 DIS Emergency JAMMIE LOPEZ [facility] ER 13 WKS PREG/CRAMPING/BL EEDING [id number] 03/21/2018 19:43:00 018 20:57:00 DIS Emergency FRANCESCA CORONA APRN [facility] ER MIGRAINE,VOMITTING [id number] 03/09/2018 18:26:00 018 19:38:00 DIS Emergency LEE BORDEN MD [facility] ER ABD PAIN, [id number] 11/24/2017 14:27:00 018 15:57:00 DIS Emergency JAMMIE LOPEZ [facility] ER ABD PAIN/MISCARRIED 3 W KS AGO [id number] 08/15/2017 20:59:00 018 23:28:00 DIS Emergency DEVI CASTELLON [facility] ER ABD PAIN AFTER MISCARR IAGE [id number] 07/31/2017 20:33:00 018 23:08:00 DIS Emergency ANA MARTINEZ [facility] ER RIGHT SIDE ABDOMEN PAIN [id number] 05/27/2017 17:47:00 018 23:59:59 CLS Outpatient KAREL MORALES [facility] LABNPT
[2019-07-16] MEDS ORDERED: RX-NEO/POLYB/HC OTIC (CORTISPORIN) SUSP 10 ML BTL ONE (02:43)
[2019-07-16] MEDS ORDERED: RX-TRAMADOL 50 MG (ULTRAM) TAB PPK#4 PO STA (02:45)
--- NOTE | 2019-07-16 02:48 | ED EENT ---
History of Present Illness General Chief Complaint: Ear Problems Stated Complaint: EAR INFECTIONX2 WEEKS Nursing Triage Note: PT PRESENTS TO ED C/O L EAR PAIN THAT ONSET TWO WEEKS AGO, PT STATES SHE WAS SEEN AT [facility] AND PUT ON ANTIBIOTICS FIVE DAYS AGO, SYMPTOMS HAVE NOT IMPROVED. PT DENIES FEVER OR CHILLS. Source: patient History of Present Illness Date Seen by Provider: Jul 16, 2019 Time Seen by Provider: 02:36 Initial Comments PT ARRIVES VIA POV FROM HOME C/O LEFT EAR PAIN X 2 WEEKS NO FEVER NO URI SYMPTOMS HAS HAD SOME DECREASED HEARING AT TIMES FROM LEFT EAR NO KNOWN INJURY TO AREA NO HISTORY OF EAR INFECTIONS STATES HER LEFT JAW HURTS WHEN SHE OPENS HER MOUTH PAIN IS ALL AROUND LEFT EAR, AND RADIATES DOWN LEFT SIDE OF NECK SEEN AT [facility] ON 07/13/19 FOR THIS PROBLEM AND WAS GIVEN RX FOR CEFDINIR--STATES NO RELIEF STATES SHE HAS NOT BEEN ABLE TO SLEEP DUE TO PAIN, AND LAYING ON LEFT SIDE OF HEAD CAUSES SEVERE PAIN NO RECENT SWIMMING, NO EXERCISE OR ANY ACTIVITY WHERE SHE IS IN A HOT / SWEATY ENVIRONMENT PCP: [facility] Allergies and Home Medications Allergies Coded Allergies: No Known Drug Allergies (Unverified , 10/31/18) Home Medications Acetaminophen 500 Mg Tablet, 1,000 MG PO Q8HR Prescribed by: KOLTON WHEATLEY on 02/14/19915 Ciprofloxacin HCl/Dexameth 7.5 Ml Soln, 5 DROPS OT BID Prescribed by: ALISSA HURTADO on 07/16/19256 Fluoxetine HCl 10 Mg Capsule, 10 MG PO HS, (Reported) Ibuprofen 600 Mg Tablet, 600 MG PO Q6HR Prescribed by: KOLTON WHEATLEY on 02/14/19915 Oxycodone Hcl 5 Mg Tab, 5 MG PO Q4HR PRN for pain Prescribed by: KOLTON WHEATLEY on 02/14/19915 Prednisone 20 Mg Tab, 40 MG PO DAILY Prescribed by: ALISSA HURTADO on 07/16/19256 Tramadol HCl 50 Mg Tablet, 50 MG PO Q4H Prescribed by: ALISSA HURTADO on 07/16/19256 Patient Home Medication List Home Medication List Reviewed: Yes Review of Systems Review of Systems Constitutional: no symptoms reported; No chills, No diaphoresis, No dizziness, No fever Eyes: No Symptoms Reported Ears: See HPI; Denies Dizziness; Pain; Denies Tinnitus, Denies Bloody Discharge, Denies Clear Discharge, Denies Purulent Discharge, Denies Serosanguinous Discharge, Denies Previous Injury Nose: no symptoms reported; denies congestion, denies bloody discharge, denies clear discharge, denies purulent discharge Mouth: see HPI (LEFT JAW PAIN WITH OPENING MOUTH) Throat: no symptoms reported Respiratory: no symptoms reported Cardiovascular: no symptoms reported Gastrointestinal: no symptoms reported : No (S/P HYSTERECTOMY FOR ELIZ) Musculoskeletal: no symptoms reported Skin: no symptoms reported Neurological: No Symptoms Reported; Denies Headache Hematologic/Lymphatic: No Symptoms Reported Immunological/Allergic: no symptoms reported Past Awgpzrx-Ebqbqz-Yfpnlb Hx Patient Social History Alcohol Use: Occasionally Uses Alcohol Beverage of Choice: Beer Recreational Drug Use: No Smoking Status: Former Smoker Type Used: Cigarettes 2nd Hand Smoke Exposure: No Recent Foreign Travel: No Contact w/Someone Who Travel: No Recent Infectious Disease Expo: No Recent Hopitalizations: No Physical Abuse: No Sexual Abuse: No Mistreated: No Fear: No Immunizations Up To Date Tetanus Booster (TDap): Unknown PED Vaccines UTD: Yes Date of Influenza Vaccine: Dec 26, 2018 Seasonal Allergies Seasonal Allergies: No Past Medical History Surgeries: Yes (EAR PINNED BACK; HYSTERECTOMY 01/2019 FOR ELIZ) Hysterectomy Respiratory: No Cardiac: No Neurological: Yes Headaches /Migraines : No Reproductive Disorders: Yes (ELIZ-S/P HYSTERECTOMY ) 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 6.0oz. 77.644006un; 27.00 BMI Method:Stated General Appearance: WD/WN, no apparent distress Eyes: bilateral eye normal inspection, bilateral eye PERRL, bilateral eye EOMI Ears: right ear other (RIGHT TM OBSCURED BY LARGE AMOUNT OF IMPACTED CERUMEN; RIGHT EXTERNAL EAR NORMAL. LEFT EXTERNAL EAR, SLIGHTLY SWOLLEN AND ERYTHEMATOUS, MARKED TENDERNESS ON TRACTION OF EXTERNAL EAR, LEFT EAC VERY SWOLLEN AND INFLAMED WITH MILD EXUDATE ADHERED TO KHAN OF CANAL. LEFT TM IS NEARLY COMPLETELY OBSCURED BY SWOLLEN EAC--VISUALIZED ASPECT APPEARS TO BE OPAQUE, SOMEWHAT DISTORTED AND APPEARS TO HAVE AN EFFUSION PRESENT. PT HAS BOTH PRE-AND POST-AURICULAR, WELL INFRA-CLAVICULAR/ANTERIOR AND POSTERIOR CERVICAL ADENOPATHY-VERY TENDER TO PALPATION. NO ERYTHEMA TO SKIN SURROUNDING THE EAR. NO EVIDENCE OF MASTOIDITIS AT THIS TIME. ) Nose: normal inspection Mouth/Throat: normal mouth inspection; No dental tenderness, No excessive drooling, No mandibular swelling, No maxillary swelling; other (TENDERNESS OVER LEFT TMJ AND OVERLYING SWOLLEN PRE-AURICULAR NODE. 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, no motor/sensory deficits, alert, normal mood/affect, oriented x 3 Skin: normal color, warm/dry; No rash Progress/Results/Core Measures Results/Orders My Orders Orders - ALISSA HURTADO DO Rx-Tramadol Hcl (Rx-Ultram) (07/16/19 02:45) Rx-Tutu/Poly/Hc Otic Susp (Rx-Cortisporin (07/16/19 02:50) Rx-Tutu/Poly/Hc Otic Susp (Rx-Cortisporin (07/16/19 02:43) Vital Signs/I&O 07/16/19 07/16/19 02:18 03:05 Temp 36.6 36.6 Pulse 69 75 Resp 20 20 B/P (MAP) 130/72 (91) 119/57 (91) Pulse Ox 98 99 O2 Delivery Room Air Room Air Blood Pressure Mean: 91 Departure Impression Primary Impression: Left otitis externa Additional Impressions: Left otitis media with effusion Impacted cerumen of right ear Disposition: 01 HOME, SELF-CARE Condition: Stable Departure-Patient Inst. Referrals: SRIDHAR CHILDERS DO [facility] [place] Patient Instructions: Ear Infections (Otitis Media) in Children (DC), Ear Wax Impaction (DC), How to Use Ear Drops, Outer Ear Infection (DC), Serous Otitis Media (DC) Add. Discharge Instructions: OVER THE COUNTER EAR WAX REMOVAL KIT--TO RIGHT EAR ONLY. CONTINUE CEFDINIR PRESCRIBED TYLENOL AND MOTRIN NEEDED FOR PAIN FOLLOW UP WITH [facility] IN 3-4 DAYS IF NO BETTER All discharge instructions reviewed with patient and/or family. Voiced understanding. Scripts Tramadol HCl (Ultram) 50 Mg Tablet 50 MG PO Q4H for Pain, #10 TAB Prov: ALISSA HURTADO DO 07/16/19 Prednisone (Prednisone) 20 Mg Tab 40 MG PO DAILY, #6 TAB 0 Refills Prov: ALISSA HURTADO DO 07/16/19 Ciprofloxacin HCl/Dexameth (Ciprodex Otic Suspension) 7.5 Ml Soln 5 DROPS OT BID, #1 EA Prov: ALISSA HURTADO DO 07/16/19 ALISSA HURTADO DO Jul 16, 2019 02:48
[2019-07-16] MEDS ORDERED: RX-NEO/POLYB/HC OTIC (CORTISPORIN) SUSP 10 ML BTL OT STA (02:50)
[2019-07-16] MEDS ORDERED: PRD20T PO (02:57)
[2019-07-16] MEDS ORDERED: NF-CIPDEC OT (02:57)
[2019-07-16] MEDS ORDERED: TRAM-42 PO (02:57)
[2019-07-16 03:05] VITALS: BP 119/57
== END 2019-07-16 03:05 | disposition home or self-care (01) ==
LOC: EDUNIT# 02:09 → ER 02:11
DX: H60.92 Unspecified otitis externa, left ear (principal); H65.92 Unspecified nonsuppurative otitis media, left ear; H61.21 Impacted cerumen, right ear
CPT/HCPCS: 99283

== ENCOUNTER 2020-08-12 19:50 | Emergency (ER) | payer MEDICAID ==
[~2020-08-12] VITALS: Ht 160 cm; Wt 68.5 kg
[~2020-08-12 19:50] MED LIST changes: -FLUO10CA30 PO; +FLUO10CA31 PO; +NF-CIPDEC OT; +PRD20T PO; +TRAM-42 PO
--- NOTE | 2020-08-12 20:18 | ED General ---
General Chief Complaint: General Problems/Pain Stated Complaint: YELLOW EYES/BACK PAIN/NAVARRO/NO APETITE Nursing Triage Note: PATIENT C/O YELLOW EYES, INCREASED BRUSING, NAUSEA, FATIGUE AND WEAKNESS FOR 3 DAYS Nursing Sepsis Screen: No Definite Risk Source of Information: Patient Exam Limitations: No Limitations History of Present Illness Date Seen by Provider: August 12, 2020 Time Seen by Provider: 20:05 Initial Comments Patient is a 24-year-old female who presents to the emergency department today with a chief complaint of several people telling her that her eyes were turning "yellow", increased fatigue and weakness over 3 days decreased appetite and nausea over 3 days. Patient states that she cannot recall anything that might of set this off. She states she does not eat out at restaurants very often. She takes no wbka-lmo-gdhrmgs supplements/vitamins/protein shakes. Patient states that she takes about 1000 mg of ibuprofen daily sometimes 2000 mg of ibuprofen daily for chronic migraines and she has been doing this for about 3 years. This is the only medication that she takes. She states she frequently has burning with urination but did not have any yesterday had a little bit this morning. No problems with bowels. She states she had some loose stools about a week ago but that improved. She states she is just not been able to hold down any food for the last 3 days. She complains of some epigastric abdominal discomfort. She does not have a primary care physician. All other review of systems reviewed and negative except as stated above. Timing/Duration: 2-3 Days Severity: Moderate Associated Systoms: Headaches, Loss of Appetite, Malaise, Nausea/Vomiting, Weakness Allergies and Home Medications Allergies Coded Allergies: No Known Drug Allergies (Unverified , 10/31/18) Home Medications Acetaminophen 500 Mg Tablet, 1,000 MG PO Q8HR Prescribed by: KOLTON WHEATLEY on 02/14/19 09 Ciprofloxacin HCl/Dexameth 7.5 Ml Soln, 5 DROPS OT BID Prescribed by: ALISSA HURTADO on 07/16/19 025 Fluoxetine HCl 10 Mg Capsule, 10 MG PO HS, (Reported) Ibuprofen 600 Mg Tablet, 600 MG PO Q6HR Prescribed by: KOLTON WHEATLEY on 02/14/19 09 Oxycodone Hcl 5 Mg Tab, 5 MG PO Q4HR PRN for pain Prescribed by: KOLTON WHEATLEY on 02/14/19 0916 Prednisone 20 Mg Tab, 40 MG PO DAILY Prescribed by: ALISSA HURTADO on 07/16/19256 Tramadol HCl 50 Mg Tablet, 50 MG PO Q4H Prescribed by: ALISSA HURTADO on 07/16/19256 Patient Home Medication List Home Medication List Reviewed: Yes Review of Systems Review of Systems Constitutional: see HPI EENTM: no symptoms reported Cardiovascular: no symptoms reported Gastrointestinal: abdominal pain, loss of appetite, nausea Genitourinary: dysuria; No frequency, No hematuria : No Musculoskeletal: no symptoms reported Skin: other ("Easy bruising") All Other Systems Reviewed Negative Unless Noted: Yes Past Ugwvvvf-Lsyyaq-Jnwnki Hx Patient Social History Alcohol Beverage of Choice: Beer Type Used: Cigarettes 2nd Hand Smoke Exposure: No Recent Infectious Disease Expo: No Recent Hopitalizations: No Immunizations Up To Date Tetanus Booster (TDap): Unknown PED Vaccines UTD: Yes Date of Influenza Vaccine: Dec 26, 2018 Seasonal Allergies Seasonal Allergies: No Past Medical History Surgeries: Yes (EAR PINNED BACK; HYSTERECTOMY 01/2019 FOR ELIZ) Hysterectomy Respiratory: No Cardiac: No Neurological: Yes Headaches /Migraines Reproductive Disorders: Yes (ELIZ-S/P HYSTERECTOMY ) 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 6.0oz. 77.451980ab; 26.00 BMI Method:Stated General Appearance: No Apparent Distress, WD/WN Eyes: Bilateral Eye Normal Inspection, Bilateral Eye PERRL, Bilateral Eye EOMI, Bilateral Eye Scleral Icterus (Very mild scleral icterus noted) HEENT: PERRL/EOMI Neck: Normal Inspection, Supple Respiratory: Lungs Clear, Normal Breath Sounds, No Accessory Muscle Use, No Respiratory Distress Cardiovascular: Regular Rate, Rhythm, Normal Peripheral Pulses Gastrointestinal: Soft; No Abnormal Bowel Sounds, No Guarding, No Hepatomegaly, No Splenomegaly; Tenderness (Very mild epigastric tenderness to palpation) Extremity: Normal Capillary Refill, Normal Inspection Neurologic/Psychiatric: Alert, Oriented x3, No Motor/Sensory Deficits, Normal Mood/Affect Skin: Normal Color, Warm/Dry, Other (Patient has some scattered bruising noted over the left knee and left proximal lower leg, left thumb) Progress/Results/Core Measures Suspected Sepsis Recent Fever Within 48 Hours: No Infection Criteria Present: None New/Unexplained Altered Menta: No Sepsis Screen: No Definite Risk SIRS Temperature: Pulse: 87 Respiratory Rate: 18 Laboratory Tests 08/12/20 20:03: White Blood Count 5.7 Blood Pressure 125 /86 Mean: 99 Laboratory Tests 08/12/20 20:03: Creatinine 0.84, Platelet Count 185, Total Bilirubin 1.7H Results/Orders Lab Results Laboratory Tests Test 08/12/20 20:03 08/12/20 20:30 Range/Units White Blood Count 5.7 4.3-11.0 10^3/uL Red Blood Count 4.79 3.80-5.11 10^6/uL Hemoglobin 14.3 11.5-16.0 g/dL Hematocrit 42 35-52 % Mean Corpuscular Volume 88 80-99 fL Mean Corpuscular Hemoglobin 30 25-34 pg Mean Corpuscular Hemoglobin Concent 34 32-36 g/dL Red Cell Distribution Width 12.7 10.0-14.5 % Platelet Count 185 130-400 10^3/uL Mean Platelet Volume 11.3 9.0-12.2 fL Immature Granulocyte % (Auto) 0 % Neutrophils (%) (Auto) 61 42-75 % Lymphocytes (%) (Auto) 29 12-44 % Monocytes (%) (Auto) 9 0-12 % Eosinophils (%) (Auto) 1 0-10 % Basophils (%) (Auto) 0 0-10 % Neutrophils # (Auto) 3.5 1.8-7.8 10^3/uL Lymphocytes # (Auto) 1.6 1.0-4.0 10^3/uL Monocytes # (Auto) 0.5 0.0-1.0 10^3/uL Eosinophils # (Auto) 0.0 0.0-0.3 10^3/uL Basophils # (Auto) 0.0 0.0-0.1 10^3/uL Immature Granulocyte # (Auto) 0.0 0.0-0.1 10^3/uL Sodium Level 139 135-145 MMOL/L Potassium Level 3.5 L 3.6-5.0 MMOL/L Chloride Level 106 98-107 MMOL/L Carbon Dioxide Level 22 21-32 MMOL/L Anion Gap 11 5-14 MMOL/L Blood Urea Nitrogen 13 7-18 MG/DL Creatinine 0.84 0.60-1.30 MG/DL Estimat Glomerular Filtration Rate > 60 BUN/Creatinine Ratio 15 Glucose Level 84 70-105 MG/DL Calcium Level 9.1 8.5-10.1 MG/DL Corrected Calcium 8.5-10.1 MG/DL Total Bilirubin 1.7 H 0.1-1.0 MG/DL Aspartate Amino Transf (AST/SGOT) 17 5-34 U/L Alanine Aminotransferase (ALT/SGPT) 11 0-55 U/L Alkaline Phosphatase 63 40-136 U/L Total Protein 7.2 6.4-8.2 GM/DL Albumin 4.6 H 3.2-4.5 GM/DL Urine Color YELLOW Urine Clarity CLEAR Urine pH 5.5 5-9 Urine Specific [place] >=1.030 1.016-1.022 Urine Protein NEGATIVE NEGATIVE Urine Glucose (UA) NEGATIVE NEGATIVE Urine Ketones 2+ H NEGATIVE Urine Nitrite NEGATIVE NEGATIVE Urine Bilirubin 2+ H NEGATIVE Urine Urobilinogen 0.2 < = 1.0 MG/DL Urine Leukocyte Esterase NEGATIVE NEGATIVE Urine RBC (Auto) NEGATIVE NEGATIVE Urine RBC NONE /HPF Urine WBC 10-25 H /HPF Urine Squamous Epithelial Cells >50 H /HPF Urine Crystals NONE /LPF Urine Bacteria MODERATE H /HPF Urine Casts NONE /LPF Urine Mucus LARGE H /LPF Urine Culture Indicated YES My Orders Orders - MADELINE BEST MD Ed Iv/Invasive Line Start (08/12/20 20:14) Cbc With Automated Diff (08/12/20 20:14) Comprehensive Metabolic Panel (08/12/20 20:14) Ua Culture If Indicated (08/12/20 20:14) Urine Culture (08/12/20 20:30) Vital Signs/I&O 08/12/20 19:55 Temp 36.5 Pulse 87 Resp 18 B/P (MAP) 125/86 (99) O2 Delivery Room Air Capillary Refill : Less Than 3 Seconds Blood Pressure Mean: 99 Progress Note : Time: 21:52 Progress Note Patient seen and examined, 24-year-old female with a chief complaint of generalized malaise, "yellow eyes" decreased appetite and nausea. Evaluation today includes a physical exam, CBC, chemistry urinalysis. Patient has a very mildly increased total bilirubin with normal liver function studies. And normal CBC and a contaminated urine that does not appear infected. Patient is reassured that she has no acute clinical or objective findings to warrant further studies from the emergency department. She is strongly encouraged to find a primary care physician. She will be given a list of physician referral resources. She is given good return precautions which include to return to the emergency room if she develops fever, further yellowing of the skin or eyes or any other emergent complaints. She is comfortable with this plan of care. All questions are sought and answered. Patient is stable for discharge. Departure Impression Primary Impression: Abdominal pain Qualified Codes: R10.13 - Epigastric pain Additional Impression: Elevated bilirubin Disposition: HOME, SELF-CARE Condition: Stable Departure-Patient Inst. Decision time for Depature: 21:54 Referrals: NO,LOCAL PHYSICIAN (PCP/Family) Primary Care Physician Patient Instructions: LOCAL PHYSICIAN LIST Add. Discharge Instructions: Increase your fluids to stay well-hydrated. Avoid fatty foods as this might increase your abdominal discomfort. Take the Bentyl I have prescribed 30 minutes before meals up to 4 times a day as needed for abdominal cramping and discomfort. Use the Zofran as needed for nausea and vomiting. Come back to the emergency room if you have any worsening abdominal pain, further yellowing of the skin or eyes, fever or any other emergent concerning complaints. Please call and follow-up with her primary care physician. Scripts Ondansetron (Ondansetron Odt) 4 Mg Tab.rapdis 4 MG PO Q8H PRN for nausea, #20 TAB Prov: MADELINE BEST MD 08/12/20 Dicyclomine HCl (Dicyclomine HCl) 10 Mg Capsule 10 MG PO ACHS PRN for abdominal cramping, #60 CAP Prov: MADELINE BEST MD 08/12/20 MADELINE BEST MD August 12, 2020 20:18
[2020-08-12 20:20] LABS: BASOPHILS % (AUTO) 0 % (0-10); EOSINOPHILS % (AUTO) 1 % (0-10); HEMATOCRIT 42 % (35-52); HEMOGLOBIN 14.3 g/dL (11.5-16.0); LYMPHOCYTES # (AUTO) 1.6 10^3/uL (1.0-4.0); LYMPHOCYTES % (AUTO) 29 % (12-44); MEAN CORPUSCULAR HEMOGLOBIN 30 pg (25-34); MEAN CORPUSCULAR HGB CONC 34 g/dL (32-36); MEAN CORPUSCULAR VOLUME 88 fL (80-99); MEAN PLATELET VOLUME 11.3 fL (9.0-12.2); MONOCYTES # (AUTO) 0.5 10^3/uL (0.0-1.0); MONOCYTES % (AUTO) 9 % (0-12); NEUTROPHILS # (AUTO) 3.5 10^3/uL (1.8-7.8); NEUTROPHILS % (AUTO) 61 % (42-75); PLATELET COUNT 185 10^3/uL (130-400); WHITE BLOOD COUNT 5.7 10^3/uL (4.3-11.0)
[2020-08-12 20:32] LABS: ALANINE AMINOTRANSFERASE 11 U/L (0-55); ALBUMIN 4.6 GM/DL (3.2-4.5); ALKALINE PHOSPHATASE 63 U/L (40-136); BILIRUBIN,TOTAL 1.7 MG/DL (0.1-1.0); BUN/CREATININE RATIO 15; CALCIUM 9.1 MG/DL (8.5-10.1); CARBON DIOXIDE 22 MMOL/L (21-32); CHLORIDE 106 MMOL/L (98-107); CREATININE SERUM 0.84 MG/DL (0.60-1.30); GFR ESTIMATED > 60; GLUCOSE 84 MG/DL (70-105); POTASSIUM 3.5 MMOL/L (3.6-5.0); SODIUM 139 MMOL/L (135-145); TOTAL PROTEIN 7.2 GM/DL (6.4-8.2)
[2020-08-12 20:40] LABS: CLARITY,URINE CLEAR; COLOR,URINE YELLOW; GLUCOSE, URINE (UA) NEGATIVE (NEGATIVE); KETONES,URINE 2+ (NEGATIVE); LEUKOCYTE ESTERASE ,URINE NEGATIVE (NEGATIVE); NITRITE,URINE NEGATIVE (NEGATIVE); PH,URINE 5.5 (5-9); PROTEIN,URINE NEGATIVE (NEGATIVE)
[2020-08-12 20:47] LABS: BACTERIA,URINE MODERATE /HPF; SQUAMOUS EPITHELIAL CELL,UR >50 /HPF
[2020-08-12 20:48] LABS: BILIRUBIN,URINE 2+ (NEGATIVE)
[2020-08-12] MEDS ORDERED: DICY10CA12 PO (21:56)
[2020-08-12] MEDS ORDERED: ONDA4TAB11 PO (21:56)
[2020-08-12 22:04] VITALS: BP 120/71
== END 2020-08-12 22:04 | disposition home or self-care (01) ==
LOC: EDUNIT# 19:50 → ER 19:52
DX: R17 Unspecified jaundice (principal); S80.02XA Contusion of left knee, initial encounter; S60.012A Contusion of left thumb without damage to nail, initial encounter; S80.12XA Contusion of left lower leg, initial encounter; F41.9 Anxiety disorder, unspecified; F32.9 Major depressive disorder, single episode, unspecified; G43.809 Other migraine, not intractable, without status migrainosus; Z79.899 Other long term (current) drug therapy; X58.XXXA Exposure to other specified factors, initial encounter
CPT/HCPCS: 36415; 80053; 81000; 85025; 87088